=== PATIENT | female | born 1940 | race Hispanic/Latino ===

== ENCOUNTER 2019-04-11 14:48 | Emergency (ER) | payer OTHER ==
[2019-04-11] MEDS ORDERED: FOLIC ACID 5 MG/ML VIAL ONE (15:19)
[2019-04-11 15:38] LABS: Absolute Lymphocytes (CBC) 1.4 K/uL (0.7-4.9); Basophils % 1.1 % (0-1.3); Hematocrit 40.2 % (36.0-45.0); Lymphocytes % 18.9 % (15.3-44.8); RBC Red Blood Cell Count 4.42 M/uL (3.86-4.86)
[2019-04-11 15:41] LABS: Protime INR 1.01
--- NOTE | 2019-04-11 15:44 | RAD REPORT ---
EXAM DESCRIPTION: CT - Head Brain Wo Cont - 04/11/2019 3:37 pm CLINICAL HISTORY: DIZZINESS Headache, drowsiness, CVA symptomology COMPARISON: <Comparisons> TECHNIQUE: All CT scans are performed using dose optimization technique as appropriate and may inclu de automated exposure control or mA/KV adjustment according to patient size. FINDINGS: No intracranial hemorrhage, hydrocephalus or extra-axial fluid collection.No areas of brai n edema or evidence of midline shift. The paranasal sinuses and mastoids are clear. The calvarium is intact. IMPRESSION: No acute intracranial abnormality.
[2019-04-11 15:57] LABS: ALT/SGPT 22 U/L (12-78); AST/SGOT 17 U/L (15-37); Albumin 3.7 g/dL (3.4-5.0); Alkaline Phosphatase 67 U/L (45-117); BUN Blood Urea Nitrogen 10 mg/dL (7-18); Bicarbonate 29 mmol/L (21-32); Bilirubin Direct 0.1 mg/dL (0-0.2); Bilirubin Total 0.6 mg/dL (0.2-1.0); Glucose Level 124 mg/dL (74-106); Lipase 96 U/L (73-393); Magnesium 2.4 mg/dL (1.8-2.4); NT PRO-BNP 182 pg/mL (<450); Potassium 4.4 mmol/L (3.5-5.1); Protein, Total 7.4 g/dL (6.4-8.2); Sodium Level 140 mmol/L (136-145); Troponin (Emerg Dept Use Only) < 0.02 ng/mL (0.0-0.045)
--- NOTE | 2019-04-11 16:00 | RAD REPORT ---
EXAM DESCRIPTION: RAD - Chest Single View - 04/11/2019 3:47 pm CLINICAL HISTORY: COUGH Chest pain. COMPARISON: <Comparisons> FINDINGS: Portable technique limits examination quality. The lungs are grossly clear. The heart is normal in size. No displaced fractures. IMPRESSION: No acute intrathoracic process suspected.
--- NOTE | 2019-04-11 16:05 | RAD REPORT ---
EXAM DESCRIPTION: MRI - Brain Wo Cont - 04/11/2019 3:59 pm CLINICAL HISTORY: Dizziness;Declining state Headache, drowsiness, CVA symptomology COMPARISON: Head Brain Wo Cont dated 04/11/2019Head Brain Wo Cont dated 04/11/2019; Iac W/Wo Cont date d 11/26/2017 TECHNIQUE: Multi-sequence, multiplanar MR imaging of the brain was performed without contrast. FINDINGS: No intracranial hemorrhage, hydrocephalus or extra-axial fluid collections.Small amount of T2 and FLAIR hyperintensity in the periventricular region suggesting chronic microvascular ischemic changes. No edema or shift of midline structures. No findings to suspect brain mass. DWI is negative for acute CVA. Midline structures are normally formed. Mastoid air cells and paranasal sinuses are clear. IMPRESSION: Negative for acute CVA or other acute intracranial abnormalities.
[2019-04-11] MEDS ORDERED: ASPIRIN 81 MG CHEWABLE TABLET ONE (16:51)
[2019-04-11] MEDS ORDERED: CEFTRIAXONE/SWI 1gm 1 GM/10 ML SYR ONE (16:51)
[2019-04-11] MEDS ORDERED: ATORVASTATIN 10 MG TAB PO ONE ×2 (17:00→18:00)
[2019-04-11] MEDS ORDERED: CIPROFLOXACIN HCL 500 MG TAB ONE (17:04)
[2019-04-11 18:13] LABS: Urine Blood NEGATIVE (NEG); Urine Glucose NEGATIVE (NEG); Urine Protein NEGATIVE (NEG)
--- NOTE | 2019-04-11 18:28 | ER ---
Nurse's Notes [facility] Name: Diana Harrell Age: 79 yrs Sex: Female : 1940 Arrival Date: 04/11/2019 Time: 14:50 Bed 13 Private MD: Zachary Ramirez R Diagnosis: Headache;Weakness;Urinary tract infection, site not specified Presentation: 04/11 14:54 Presenting complaint: Patient states: "Yesterday I got dizzy and I can't talk too good aj1 and my leg is giving me problems, the back of my leg is hurting and I have a headache." States that she started having trouble talking yesterday but her leg has been hurting her for the past 2 weeks. States that this morning she couldn't talk, but she is unsure when that started or when that resolved. Transition of care: patient was not received from another setting of care. Onset of symptoms was April 10, 2019. Risk Assessment: Do you want to hurt yourself or someone else? Patient reports no desire to harm self or others. Initial Sepsis Screen: Does the patient meet any 2 criteria? No. Patient's initial sepsis screen is negative. Does the patient have a suspected source of infection? No. Patient's initial sepsis screen is negative. Care prior to arrival: None. 14:54 Method Of Arrival: Ambulatory aj1 14:54 Acuity: VAN 3 aj1 Triage Assessment: 14:59 Headache History: Denies prior headaches. General: Appears in no apparent distress. aj1 comfortable, Behavior is calm, cooperative, appropriate for age. Pain: Complains of pain in top of head, forehead, right mosque, left mosque, left frontal area, left side of the back of head, left side of forehead, left temporal area, left occipital area, right frontal area, right side of the back of head, right temporal area, right side of forehead and right occipital area Pain currently is 10 out of 10 on a pain scale. Pain began 1 day ago. Also complains of no other associated symptoms. Neuro: Level of Consciousness is awake, alert, obeys commands, Oriented to person, place, time, situation, Moves all extremities. Gait is steady, Speech is normal, Facial symmetry appears normal. Historical: - Allergies: 14:59 No Known Allergies; aj1 - Home Meds: 14:59 2 unknown blood pressure medications [Active]; aj1 - PMHx: 14:59 Hypertension; Arthritis; aj1 - Immunization history:: Flu vaccine is up to date. - Social history:: Smoking status: Patient/guardian denies using tobacco. - Ebola Screening: : Patient denies travel to an Ebola-affected area in the 21 days before illness onset. - Family history:: not pertinent. Screenin:03 Abuse screen: Denies threats or abuse. Nutritional screening: No deficits noted. tw2 Tuberculosis screening: No symptoms or risk factors identified. Fall Risk Secondary diagnosis (15 points) impaired mobility. Assessment: 15:02 General: Appears in no apparent distress. slender, Behavior is calm, cooperative, tw2 appropriate for age. Pain: Complains of pain in "headache". Neuro: Level of Consciousness is awake, alert, obeys commands, Oriented to person, place, time, situation. Cardiovascular: Heart tones S1 S2 Patient's skin is warm and dry. Respiratory: Airway is patent Respiratory effort is even, unlabored, Respiratory pattern is regular, symmetrical, Breath sounds are clear bilaterally. GI: No signs and/or symptoms were reported involving the gastrointestinal system. : No signs and/or symptoms were reported regarding the genitourinary system. EENT: No signs and/or symptoms were reported regarding the EENT system. Derm: No signs and/or symptoms reported regarding the dermatologic system. Musculoskeletal: Range of motion: intact in all extremities. 16:27 Reassessment: Patient appears in no apparent distress at this time. No changes from tw2 previously documented assessment. Patient and/or family updated on plan of care and expected duration. Pain level reassessed. Patient is alert, oriented x 3, equal unlabored respirations, skin warm/dry/pink. 16:39 Reassessment: provider at bedside at this time. tw2 17:58 Reassessment: Patient appears in no apparent distress at this time. No changes from tw2 previously documented assessment. Patient and/or family updated on plan of care and expected duration. Pain level reassessed. Patient is alert, oriented x 3, equal unlabored respirations, skin warm/dry/pink. 18:00 Reassessment: US at bedside at this time. tw2 18:40 Reassessment: Patient appears in no apparent distress at this time. No changes from tw2 previously documented assessment. Patient and/or family updated on plan of care and expected duration. Pain level reassessed. Patient is alert, oriented x 3, equal unlabored respirations, skin warm/dry/pink. Vital Signs: 14:59 BP 152 / 80; Pulse 60; Resp 16; Temp 97.2; Pulse Ox 97% on R/A; Weight 54.43 kg (R); aj1 Height 4 ft. 11 in. (149.86 cm) (R); Pain 10/10; 16:27 BP 143 / 54; Pulse 54; Resp 17; Pulse Ox 98% on R/A; tw2 17:58 BP 114 / 53; Pulse 57; Resp 17; Pulse Ox 98% on R/A; tw2 18:40 BP 138 / 53; Pulse 55; Resp 17; Pulse Ox 98% on R/A; tw2 14:59 Body Mass Index 24.24 (54.43 kg, 149.86 cm) aj1 NIH Stroke Scale Scores: 16:43 NIHSS Score: 0 speedy ED Course: 14:50 Patient arrived in ED. mr 14:51 Zachary Ramirez MD is Private Physician. mr 14:57 Triage completed. aj1 14:59 Arm band placed on Patient placed in an exam room. aj1 15:01 Virginie Fuentes, RN is Primary Nurse. tw2 15:03 Bed in low position. Call light in reach. monitor car operator on. Pulse ox on. NIBP on. tw2 Warm blanket given. 15:05 Eliazar Brody MD is Attending Physician. speedy 15:25 Inserted saline lock: 22 gauge in right hand, using aseptic technique. Blood collected. tw2 Missed attempt(s): 22 gauge in right antecubital area. Bleeding controlled, band aid applied, catheter tip intact. 15:38 CT Head Brain wo Cont In Process Unspecified. EDMS 15:45 Brain Wo Cont In Process Unspecified. EDMS 15:49 XRAY Chest (1 view) In Process Unspecified. EDMS 16:34 EKG done, by weed science research technician. reviewed by Eliazar Brody MD. sm3 18:27 Zachary Ramirez MD is Referral Physician. speedy 18:27 Oscar Armando MD is Referral Physician. speedy 18:48 No provider procedures requiring assistance completed. IV discontinued, intact, tw2 bleeding controlled, No redness/swelling at site. Pressure dressing applied. Administered Medications: 15:25 Drug: foLIC Acid 1 mg Route: IVPB; Site: right hand; tw2 16:22 Follow up: IV Status: Completed infusion tw2 16:55 Drug: Rocephin 1 grams Route: IV; Rate: per protocol; Site: right hand; tw2 17:00 Follow up: Response: No adverse reaction; IV Status: Completed infusion tw2 17:00 Follow up: Response: No adverse reaction; IV Status: Completed infusion tw2 17:00 Drug: Aspirin Chewable Tablet 324 mg Route: PO; tw2 17:05 Follow up: Response: No adverse reaction tw2 17:05 Drug: Cipro 500 mg Route: PO; tw2 17:35 Follow up: Response: No adverse reaction tw2 17:35 Not Given (not available from pharmacy): Zocor 20 mg PO once tw2 17:57 Drug: Atorvastatin 10 mg Route: PO; tw2 17:57 Follow up: Response: No adverse reaction tw2 Outcome: 18:28 Discharge ordered by . speedy 18:48 Discharged to home via wheelchair, with family. tw2 18:48 Condition: stable 18:48 Discharge instructions given to patient, family, Instructed on discharge instructions, follow up and referral plans. medication usage, Demonstrated understanding of instructions, follow-up care, medications, Prescriptions given X 4. 18:48 Patient left the ED. tw2 NIH Stroke Scale - NIH Stroke Score Date: 04/11/2019 Time: 16:43 Total Score = 0 1a. Level of Consciousness (LOC) - 0(Alert) 1b. Level of Consciousness (LOC) (Year \\T\\ Age) - 0(Both) 1c. LOC Commands (Open \\T\\ Closes Eyes/Crate Opener) - 0(Both) 2. Best Gaze (Lateral Gaze Paresis) - 0(Normal) 3. Visual Field Loss - 0(No visual loss) 4. Facial Palsy - 0(Normal) 5a. Left Arm: Motor (10-second hold) - 0(No drift) 5b. Right Arm: Motor (10-second hold) - 0(No drift) 6a. Left Leg: Motor (5-second hold - always test supine) - 0(No drift) 6b. Right Leg: Motor (5-second hold - always test supine) - 0(No drift) 7. Limb Ataxia (finger/nose \\T\\ heel/knowles - test with eyes open) - 0(Absent) 8. Sensory Loss (pinprick arms/legs/face) - 0(Normal) 9. Best Language: Aphasia (description/naming/reading) - 0(No aphasia) 10. Dysarthria (speech clarity - read or repeat words) - 0(Normal) 11. Extinction and Inattention (visual/tactile/auditory/spatial/personal) - 0(No abnormality) Initials: speedy Signatures: Dispatcher [employer] EDLyubov Alberto, RN RN aj1 Eliazar Brody MD MD cha Rivera, Evette mr Virginie Fuentes RN RN tw2 Nataly Buckley 3 Corrections: (The following items were deleted from the chart) 16:38 16:27 BP 143 / 143; Pulse 54bpm; Resp 17bpm; Pulse Ox 98% RA; tw2 tw2
--- NOTE | 2019-04-11 18:29 | EDPHYS ---
Physician Documentation [facility] Name: Diana Harrell Age: 79 yrs Sex: Female : 1940 Arrival Date: 04/11/2019 Time: 14:50 Bed 13 Private MD: Zachary Ramirez R ED Physician Eliazar Brody HPI: 04/11 16:43 This 79 yrs old Female presents to ER via Ambulatory with complaints of speedy Headache, Dizziness, Trouble Talking. 16:43 The patient complains of pain to the top of head, forehead, left frontal area and right speedy frontal area. The patient describes the headache as aching. Onset: The symptoms/episode began/occurred just prior to arrival. Associated signs and symptoms: The patient has no apparent associated signs or symptoms. Severity of symptoms: At its worst the pain was mild, moderate, in the emergency department the pain is unchanged. Headache History: The patient has had previous headaches and this one is similar to previous episodes. The symptoms are alleviated by nothing. the symptoms are aggravated by nothing. The patient has not experienced similar symptoms in the past. Historical: - Allergies: 14:59 No Known Allergies; aj1 - Home Meds: 14:59 2 unknown blood pressure medications [Active]; aj1 - PMHx: 14:59 Hypertension; Arthritis; aj1 - Immunization history:: Flu vaccine is up to date. - Social history:: Smoking status: Patient/guardian denies using tobacco. - Ebola Screening: : Patient denies travel to an Ebola-affected area in the 21 days before illness onset. - Family history:: not pertinent. ROS: 16:43 Constitutional: Negative for fever, chills, and weight loss, Eyes: Negative for injury, speedy pain, redness, and discharge, ENT: Negative for injury, pain, and discharge, Neck: Negative for injury, pain, and swelling, Cardiovascular: Negative for chest pain, palpitations, and edema, Respiratory: Negative for shortness of breath, cough, wheezing, and pleuritic chest pain, Abdomen/GI: Negative for abdominal pain, nausea, vomiting, diarrhea, and constipation, Back: Negative for injury and pain, : Negative for injury, bleeding, discharge, and swelling, MS/Extremity: Negative for injury and deformity, Skin: Negative for injury, rash, and discoloration, Psych: Negative for depression, anxiety, suicide ideation, homicidal ideation, and hallucinations, Allergy/Immunology: Negative for hives, rash, and allergies, Endocrine: Negative for neck swelling, polydipsia, polyuria, polyphagia, and marked weight changes, Hematologic/Lymphatic: Negative for swollen nodes, abnormal bleeding, and unusual bruising. 16:43 Neuro: Positive for headache, speech changes, weakness. Exam: 16:43 Constitutional: This is a well developed, well nourished patient who is awake, alert, speedy and in no acute distress. Head/Face: Normocephalic, atraumatic. Eyes: Pupils equal round and reactive to light, extra-ocular motions intact. Lids and lashes normal. Conjunctiva and sclera are non-icteric and not injected. Cornea within normal limits. Periorbital areas with no swelling, redness, or edema. ENT: Nares patent. No nasal discharge, no septal abnormalities noted. Tympanic membranes are normal and external auditory canals are clear. Oropharynx with no redness, swelling, or masses, exudates, or evidence of obstruction, uvula midline. Mucous membranes moist. Neck: Trachea midline, no thyromegaly or masses palpated, and no cervical lymphadenopathy. Supple, full range of motion without nuchal rigidity, or vertebral point tenderness. No Meningismus. Chest/axilla: Normal chest wall appearance and motion. Nontender with no deformity. No lesions are appreciated. Cardiovascular: Regular rate and rhythm with a normal S1 and S2. No gallops, murmurs, or rubs. Normal PMI, no JVD. No pulse deficits. Respiratory: Lungs have equal breath sounds bilaterally, clear to auscultation and percussion. No rales, rhonchi or wheezes noted. No increased work of breathing, no retractions or nasal flaring. Abdomen/GI: Soft, non-tender, with normal bowel sounds. No distension or tympany. No guarding or rebound. No evidence of tenderness throughout. Back: No spinal tenderness. No costovertebral tenderness. Full range of motion. Female : Normal external genitalia. Skin: Warm, dry with normal turgor. Normal color with no rashes, no lesions, and no evidence of cellulitis. MS/ Extremity: Pulses equal, no cyanosis. Neurovascular intact. Full, normal range of motion. Neuro: Awake and alert, GCS 15, oriented to person, place, time, and situation. Cranial nerves II-XII grossly intact. Motor strength 5/5 in all extremities. Sensory grossly intact. Cerebellar exam normal. Normal gait. Psych: Awake, alert, with orientation to person, place and time. Behavior, mood, and affect are within normal limits. Vital Signs: 14:59 BP 152 / 80; Pulse 60; Resp 16; Temp 97.2; Pulse Ox 97% on R/A; Weight 54.43 kg (R); aj1 Height 4 ft. 11 in. (149.86 cm) (R); Pain 10/10; 16:27 BP 143 / 54; Pulse 54; Resp 17; Pulse Ox 98% on R/A; tw2 17:58 BP 114 / 53; Pulse 57; Resp 17; Pulse Ox 98% on R/A; tw2 18:40 BP 138 / 53; Pulse 55; Resp 17; Pulse Ox 98% on R/A; tw2 14:59 Body Mass Index 24.24 (54.43 kg, 149.86 cm) aj1 NIH Stroke Scale Scores: 16:43 NIHSS Score: 0 speedy MDM: 15:13 Patient medically screened. speedy 16:47 Data reviewed: vital signs, nurses notes, lab test result(s), EKG, radiologic studies, [place] CT scan, doppler, MRI. 04/11 15:12 Order name: Basic Metabolic Panel; Complete Time: 16:36 [place] 04/11 15:12 Order name: CBC with Diff; Complete Time: 16:36 [place] 04/11 15:12 Order name: LFT's; Complete Time: 16:36 [place] 04/11 15:12 Order name: Magnesium; Complete Time: 16:36 [place] 04/11 15:12 Order name: NT PRO-BNP; Complete Time: 16:36 [place] 04/11 15:12 Order name: PT-INR; Complete Time: 16:36 [place] 04/11 15:12 Order name: Troponin (emerg Dept Use Only); Complete Time: 16:36 [place] 04/11 15:12 Order name: XRAY Chest (1 view); Complete Time: 16:36 [place] 04/11 15:12 Order name: Lipase; Complete Time: 16:36 [place] 04/11 15:12 Order name: CT Head Brain wo Cont; Complete Time: 16:36 [place] 04/11 15:12 Order name: Urine Culture [place] 04/11 16:42 Order name: Urine Dipstick--Ancillary (enter results); Complete Time: 18:27 04/11 15:12 Order name: EKG; Complete Time: 15:16 [place] 04/11 15:12 Order name: Cardiac monitoring; Complete Time: 15:14 [place] 04/11 15:12 Order name: EKG - Nurse/Tech; Complete Time: 16:27 [place] 04/11 15:12 Order name: IV Saline Lock; Complete Time: 15:31 [place] 04/11 15:12 Order name: Labs collected and sent; Complete Time: 15:31 [place] 04/11 15:12 Order name: O2 Per Protocol; Complete Time: 15:14 [place] 04/11 15:12 Order name: O2 Sat Monitoring; Complete Time: 15:13 [place] 04/11 15:12 Order name: Urine Dipstick-Ancillary (obtain specimen); Complete Time: 16:22 [place] 04/11 15:44 Order name: Brain Wo Cont; Complete Time: 16:36 EDMS Administered Medications: 15:25 Drug: foLIC Acid 1 mg Route: IVPB; Site: right hand; tw2 16:22 Follow up: IV Status: Completed infusion tw2 16:55 Drug: Rocephin 1 grams Route: IV; Rate: per protocol; Site: right hand; tw2 17:00 Follow up: Response: No adverse reaction; IV Status: Completed infusion tw2 17:00 Follow up: Response: No adverse reaction; IV Status: Completed infusion tw2 17:00 Drug: Aspirin Chewable Tablet 324 mg Route: PO; tw2 17:05 Follow up: Response: No adverse reaction tw2 17:05 Drug: Cipro 500 mg Route: PO; tw2 17:35 Follow up: Response: No adverse reaction tw2 17:35 Not Given (not available from pharmacy): Zocor 20 mg PO once tw2 17:57 Drug: Atorvastatin 10 mg Route: PO; tw2 17:57 Follow up: Response: No adverse reaction tw2 Disposition: 04/11/19 18:28 Discharged to Home. Impression: Headache, Weakness, Urinary tract infection, site not specified. - Condition is Fair. - Discharge Instructions: General Headache Without Cause, Urinary Tract Infection, Adult, Weakness, Fatigue, Urinary Tract Infection, Adult, [id number], Weakness, [id number], Aspirin and Your Heart, General Headache Without Cause, [id number]. - Prescriptions for Cipro 250 mg Oral Tablet - take 1 tablet by ORAL route every 12 hours; 14 tablet. Folic Acid 1 mg Oral Tablet - take 1 tablet by ORAL route once daily; 30 tablet. Lipitor 10 mg Oral Tablet - take 1 tablet by ORAL route once daily; 30 tablet. Bactrim DS 800- 160 mg Oral Tablet - take 1 tablet by ORAL route every 12 hours for 5 days; 10 tablet. - Medication Reconciliation Form, Thank You Letter, Antibiotic Education, Prescription Opioid Use form. - Follow up: Zachary Ramirez; When: 2 - 3 days; Reason: Recheck today's complaints, Continuance of care, Re-evaluation by your physician. Follow up: Oscar Armando; When: 2 - 3 days; Reason: Recheck today's complaints, Re-evaluation by your physician. - Problem is new. - Symptoms have improved. NIH Stroke Scale - NIH Stroke Score Date: 04/11/2019 Time: 16:43 Total Score = 0 1a. Level of Consciousness (LOC) - 0(Alert) 1b. Level of Consciousness (LOC) (Year \T\ Age) - 0(Both) 1c. LOC Commands (Open \T\ Closes Eyes/Asian Studies Professor) - 0(Both) 2. Best Gaze (Lateral Gaze Paresis) - 0(Normal) 3. Visual Field Loss - 0(No visual loss) 4. Facial Palsy - 0(Normal) 5a. Left Arm: Motor (10-second hold) - 0(No drift) 5b. Right Arm: Motor (10-second hold) - 0(No drift) 6a. Left Leg: Motor (5-second hold - always test supine) - 0(No drift) 6b. Right Leg: Motor (5-second hold - always test supine) - 0(No drift) 7. Limb Ataxia (finger/nose \T\ heel/knowles - test with eyes open) - 0(Absent) 8. Sensory Loss (pinprick arms/legs/face) - 0(Normal) 9. Best Language: Aphasia (description/naming/reading) - 0(No aphasia) 10. Dysarthria (speech clarity - read or repeat words) - 0(Normal) 11. Extinction and Inattention (visual/tactile/auditory/spatial/personal) - 0(No abnormality) Initials: speedy Signatures: Dispatcher [employer] [facility] Lyubov Miller, RN RN aj1 Eliazar Brody MD MD cha Wise, Tara RN RN tw2 Corrections: (The following items were deleted from the chart) 15:44 15:15 MR STROKE PROTOCOL+MRI.RAD.BRZ ordered. [facility] 18:09 17:15 Urine Dipstick-Ancillary ordered. [facility] 18:47 16:44 Carotid Artery Bilateral+US.RAD.BRZ ordered. [facility] 18:48 18:28 04/11/2019 18:28 Discharged to Home. Impression: Headache; Weakness; tw2 Urinary tract infection, site not specified. Condition is Fair. Discharge Instructions: General Headache Without Cause, Urinary Tract Infection, Adult, Weakness, Fatigue, Urinary Tract Infection, Adult, Hqxk-[id number], Weakness, Jmvo-[id number], Aspirin and Your Heart, General Headache Without Cause, [id number]-[id number]. Prescriptions for Cipro 250 mg Oral Tablet - take 1 tablet by ORAL route every 12 hours; 14 tablet, Folic Acid 1 mg Oral Tablet - take 1 tablet by ORAL route once daily; 30 tablet, Lipitor 10 mg Oral Tablet - take 1 tablet by ORAL route once daily; 30 tablet. and Forms are Medication Reconciliation Form, Thank You Letter, Antibiotic Education, Prescription Opioid Use. Follow up: Zachary Ramirez; When: 2 - 3 days; Reason: Recheck today's complaints, Continuance of care, Re-evaluation by your physician. Follow up: Oscar Armando; When: 2 - 3 days; Reason: Recheck today's complaints, Re-evaluation by your physician. Problem is new. Symptoms have improved. speedy
--- NOTE | 2019-04-11 18:54 | RAD REPORT ---
EXAM DESCRIPTION: US - CP - 04/11/2019 6:47 pm CLINICAL HISTORY: DIZZY Headache, drowsiness, dizziness COMPARISON: No comparisonsChest Pa And Lat (2 Views) dated 11/08/2016Head Brain Wo Cont dated 9; Ct Stroke Brain Wo Cont dated 09/11/2018CAROTID ARTERY BILATERAL dated 01/19/2011 TECHNIQUE: Real-time sonographic evaluation of both carotid systems was performed. Doppler interroga tion was performed with waveform tracing bilaterally. FINDINGS: Normal high resistance waveforms are noted in both external carotid arteries. The common c arotid arteries and internal carotid arteries show normal low resistance waveforms. Small amount of plaquing is present in the left carotid bulb. Peak systolic and end diastolic velocit y values and the ICA/CCA ratios are in the non-hemodynamically significant range. Antegrade flow seen in both vertebral arteries. IMPRESSION: Mild left carotid bulb mixed plaque. No evidence of a hemodynamically significant stenosis.
[2019-04-11 21:32] VITALS: O2SAT 98
[2019-04-11 21:34] VITALS: TEMP 97.2
[2019-04-11 21:37] VITALS: BP 138/53
--- NOTE | 2019-04-13 12:49 | EKG ---
Test Date: 2019-04-11 Test Time: 16:27:20 Child Day Care Provider: KEVIN MEASUREMENT RESULTS: Intervals: Rate: 54 MI: 124 QRSD: 94 QT: 458 QTc: 434 [place]: P: 9 MI: 124 QRS: -25 T: 34 INTERPRETIVE STATEMENTS: Sinus bradycardia Otherwise normal ECG Compared to ECG 08/19/1996 16:12:00 Sinus rhythm no longer present Electronically Signed On 04-13-19 12:45:34 CARPET RENOVATOR by Tod Fox
--- OUTSIDE RECORDS SUMMARY | 2019-04-14 05:32 | XMS REPORT ---
:1940 [facility] Address [address] [place] [address] Dr. Garcia [address] [place] [id number] Care Team Providers Name Role Phone Unavailable Unavailable Unavailable Problems This patient has no known problems. Allergies, Adverse Reactions, Alerts This patient has no known allergies or adverse reactions. Medications This patient has no known medications.
--- OUTSIDE RECORDS SUMMARY | 2019-04-14 05:32 | XMS REPORT | Summary of Care ---
:1940 Author Organization [facility] Address [address] [place] [address] Care Team Providers Name Role Phone Zachary Jung MD Primary Care Provider Reason for Visit Reason Comments Leg Pain Auth/Cert Status Reason Specialty Diagnoses / Referred By Referred To Procedures Contact Contact Emergency [facility] [address] [place] [address] [place] [address] Encounter Details Date Type Department Care Team Description 01/29/2019 Hospital Encounter [facility] Alphonso Herbert MD [address] BAJWA [address] [place] [phone] Heart Center [facility], [facility] Cardio Vascular [address] [place] [address] [place] [phone] Allergies No Known Allergiesdocumented as of this encounter (statuses as of 01/30/2019) Medications Medication Sig Dispensed Refills Start Date End Date Status traMADol 50 mg Take 1 tablet by 20 tablet 0 01/29/2019 Active tabletIndications: mouth every 6 Avendaño's cyst of knee, (six) hours as left needed for Pain (scale 4-6). naproxen (NAPROSYN) Take 1 tablet by 20 tablet 0 01/29/2019 Active 500 mg mouth 2 (two) tabletIndications: times daily with Avendaño's cyst of knee, meals. left documented as of this encounter (statuses as of 01/30/2019) Active Problems Not on filedocumented as of this encounter (statuses as of 01/30/2019) Social History Tobacco Use Types Packs/Day Years Used Date Never Assessed Sex Assigned at Date Recorded Not on file Job Start Date Occupation Industry Not on file Not on file Not on file Travel History Travel Start Travel End No recent travel history available. documented as of this encounter Last Filed Vital Signs Not on filedocumented in this encounter Plan of Treatment Health Maintenance Due Date Last Done Comments DTaP,Tdap,and Td Vaccines (1 - Tdap) 1961 Zoster Recombinant Vaccine (SHINGRIX) (1 of 2) 1992 Medicare Wellness Visit 2007 Osteoporosis Screening 2007 PNEUMOCOCCAL VACCINES 65+ (1 of 2 - PCV13) 2007 INFLUENZA VACCINE (#1) 2019 documented as of this encounter Results Not on filedocumented in this encounter Visit Diagnoses Diagnosis Left leg pain Pain in limb documented in this encounter Insurance Payer Benefit Plan / Subscriber ID Effective Dates Phone Address Type Group [facility] [id number] 2018-Presen Medicare Adv PLUS PLUS CHOICE t HMO/POS [phone] [id number] (Work) documented as of this encounter
--- OUTSIDE RECORDS SUMMARY | 2019-04-14 05:32 | XMS REPORT | Summary of Care ---
:1940 [address] [facility] Address [address] [place] [address] Care Team Providers Name Role Phone Zachary Jung MD Primary Care Provider Reason for Referral Radiology Services (STAT) Status Reason Specialty Diagnoses / Referred By Referred To Procedures Contact Contact New Request Diagnostic Diagnoses Acute pain of left knee Yasmani Dee, Radiology Procedures XR KNEE <3 VW LEFT [address] [address] Radiology Services (STAT) Status Reason Specialty Diagnoses / Referred By Referred To Procedures Contact Contact New Request Diagnostic Diagnoses Acute pain of left knee Yasmani Dee, Radiology Procedures XR KNEE <3 VW LEFT [address] [address] (Routine) Status Reason Specialty Diagnoses / Referred By Referred To Procedures Contact Contact New Request Procedures Ros Puckett, UNILATERAL VENOUS PAC DUPLEX LOWER [address] [facility] [place] [address] VASCULAR LAB (Routine) Status Reason Specialty Diagnoses / Referred By Referred To Procedures Contact Contact New Request Procedures Ros Puckett, UNILATERAL VENOUS PAC DUPLEX LOWER [address] [facility] [place] [address] VASCULAR LAB Reason for Visit Reason Comments Knee Pain Auth/Cert Status Reason Specialty Diagnoses / Referred By Referred To Procedures Contact Contact Emergency [facility] [address] [place] [address] [place] [address] Encounter Details Date Type Department Care Team Description 01/29/2019 - Emergency [facility] PuckettRos S, Avendaño's cyst of knee, left (Primary Dx); 01/30/2019 Department PAC Acute pain of left knee [address] [place] [address] [place] [address] [facility] [place] [address] [phone] Allergies No Known Allergiesdocumented as of this [...] of this encounter Last Filed Vital Signs Vital Sign Reading Time Taken Comments Blood Pressure 122/54 01/29/2019 11:00 PM CDT Pulse 75 01/29/2019 11:00 PM CDT Temperature 37 C (98.6 F) 01/29/2019 9:25 PM CDT Respiratory Rate - - Oxygen Saturation 94% 01/29/2019 11:00 PM CDT Inhaled Oxygen Concentration - - Weight 55.3 kg (122 lb) 01/29/2019 9:15 PM CDT Height 149.9 cm (4' 11") 01/29/2019 9:15 PM CDT Body Mass Index 24.64 01/29/2019 9:15 PM CDT documented in this encounter Discharge Instructions Ros Stratton, LUDA - 01/29/2019Take medications as prescribed and try to avoid standing or walking for long periods of time. Followup with an orthopedist in the next 1-2 days if the pain continues to be bad for further evaluation and treatment. AttachmentsThe following attachments cannot be sent through Care Everywhere.Avendaño's Cyst (Popliteal Cyst), Understanding ([place]serr[place]ian)Avendaño's Cyst ( Popliteal Cyst), Treatment for ([place]serratian)documented in this encounter Plan of Treatment Name Type Priority Associated Diagnoses Date/Time XR KNEE <3 VW LEFT IMAGING STAT Acute pain of left knee 01/29/2019 11:40 PM CDT Health Maintenance Due Date Last Done Comments DTaP,Tdap,and Td Vaccines (1 - Tdap) 1961 Zoster Recombinant Vaccine (SHINGRIX) (1 of 2) 1992 Medicare Wellness Visit 2007 Osteoporosis Screening 2007 PNEUMOCOCCAL VACCINES 65+ (1 of 2 - PCV13) 2007 INFLUENZA VACCINE (#1) 2019 documented as of this encounter Procedures Procedure Name Priority Date/Time Associated Diagnosis Comments XR KNEE <3 VW LEFT STAT 01/29/2019 11:40 PM CDT Acute pain of left knee Procedure Note - [facility], Radiant Results Inft User - 01/29/2019 11:45 PM CDT EXAM: XR KNEE <3 VW LEFT HISTORY: knee pain COMPARISON: None FINDINGS: Radiographs of the left knee demonstrate no acute fracture or dislocation. The joint spaces are maintained. No soft tissue abnormality is seen. IMPRESSION No acute fracture or dislocation. documented in this encounter Results Not on filedocumented in this encounter Visit Diagnoses Diagnosis Avendaño's cyst of knee, left - Primary Acute pain of left knee documented in this encounter Administered Medications Medication Order MAR Action Action Date Dose Rate Site HYDROcodone-acetaminophen Given 01/29/2019 11:45 PM CDT 1 tablet (NORCO 5) 5-325 mg tablet 1 tablet 1 tablet, Oral, ONCE, 1 dose, Lynda 01/30/19 at 0045, RUTH ANN documented in this encounter Insurance Payer Benefit Plan / Subscriber ID Effective Dates Phone Address Type Group [employer] MORROW [id number] 2018-Presen Medicare Adv PLUS PLUS CHOICE t HMO/POS [phone] [id number] (Work) documented as of this encounter
--- OUTSIDE RECORDS SUMMARY | 2019-04-14 05:32 | XMS REPORT | Summary of Care ---
:1940 Author Organization [facility] Address [address] [place] [address] Care Team Providers Name Role Phone Zachary Jung MD Primary Care Provider Reason for Visit Reason Comments Follow-up Knee Pain cyst on left knee Encounter Details Date Type Department Care Team Description 01/30/2019 Office Visit [facility] Orthopaedic Andres Avendaño S, Internal derangement Surgery- [place] PAC of left knee (Primary [address] [place] [address] [place], [place] [phone] Allergies No Known Allergiesdocumented as of this encounter (statuses as of 01/31/2019) Medications Medication Sig Dispensed Refills Start Date [...] as of this encounter (statuses as of 01/31/2019) Active Problems Not on filedocumented as of this encounter (statuses as of 01/31/2019) Social History Tobacco Use Types Packs/Day Years Used Date Never Assessed Sex Assigned at Date Recorded Not on file Job Start Date Occupation Industry Not on file Not on file Not on file Travel History Travel Start Travel End No recent travel history available. documented as of this encounter Last Filed Vital Signs Vital Sign Reading Time Taken Comments Blood Pressure 151/74 01/30/2019 9:31 AM CDT Pulse 65 01/30/2019 9:28 AM CDT Temperature - - Respiratory Rate - - Oxygen Saturation - - Inhaled Oxygen Concentration - - Weight 55.3 kg (122 lb) 01/30/2019 9:28 AM CDT Height 149.9 cm (4' 11") 01/30/2019 9:28 AM CDT Body Mass Index 24.64 01/30/2019 9:28 AM CDT documented in this encounter Progress Notes Andres Avendaño, PAC - 01/30/2019 9:45 AM CDT Cc: Chief Complaint Patient presents with Follow-up Knee Pain cyst on left knee Diana Harrell is a 78 year old female. Therefore left knee pain, onset 01/22/2019, difficulty walking, she went to the emergency department at [facility], Allergies Diana has No Known Allergies. Medications Outpatient Medications Prior to Visit Medication Sig Dispense Refill naproxen (NAPROSYN) 500 mg tablet Take 1 tablet by mouth 2 (two) times daily with meals. 20 tablet 0 traMADol 50 mg tablet Take 1 tablet by mouth every 6 (six) hours as needed for Pain (scale 4-6).20 tablet 0 No facility-administered medications prior to visit. Histories Past Medical History: Diagnosis Date Hypertension No past surgical history on file. Social History Socioeconomic History Marital status: Spouse name: Not on file Number of children: Not on file Years of education: Not on file Highest education level: Not on file Occupational History Not on file Social Needs Financial resource strain: Not on file Food insecurity: Worry: Not on file Inability: Not on file Transportation needs: Medical: Not on file Non-medical: Not on file Tobacco Use Smoking status: Not on file Substance and Sexual Activity Alcohol use: Not on file Drug use: Not on file Sexual activity: Not on file Lifestyle Physical activity: Days per week: Not on file Minutes per session: Not on file Stress: Not on file Relationships Social connections: Talks on phone: Not on file Gets together: Not on file Attends sikhism service: Not on file Active member of club or organization: Not on file Attends meetings of clubs or organizations: Not on file Relationship status: Not on file Intimate partner violence: Fear of current or ex partner: Not on file Emotionally abused: Not on file Physically abused: Not on file Forced sexual activity: Not on file Other Topics Concern Not on file Social History Narrative Not on file No family history on file. Review of Systems Constitutional: Positive for activity change. HENT: Negative. Eyes: Negative. Respiratory: Negative. Breasts: Negative. Cardiovascular: Negative. Gastrointestinal: Negative. Genitourinary: Negative. Musculoskeletal: Negative. Skin: Negative. Neurological: Negative. Psychiatric/Behavioral: Negative. Endocrine: Endocrine negative Vital Signs Ht 59" (149.9 cm) | Wt 55.3 kg (122 lb) | BMI 24.64 kg/m Physical Exam Musculoskeletal: Physical Exam Constitutional: oriented to person, place, and time. appears well-developed and well-nourished. HENT: Head: Normocephalic and atraumatic. Right Ear: External ear normal. Left Ear: External ear normal. Eyes: Conjunctivae are normal. Neck: Normal range of motion. No strabismus Neck supple. Cardiovascular: Normal rate and regular rhythm. Pulmonary/Chest: Normal respiratory rate equal chest rise and fall in no apparent distress Abdominal: Abdomen nondistended nontender Neurological: alert and oriented to person, place, and time. No asymmetry Skin: Skin is warm and dry. Psychiatric: normal mood and affect. behavior is normal. Judgment and thought content normal. Nursing note and vitals reviewed. Left knee stable ligamentous exam she does have a ache or cyst on the posterior aspect of the medialknee. Physical Exam Constitutional: oriented to person, place, and time. appears well-developed and well-nourished. HENT: Head: Normocephalic and atraumatic. Right Ear: External ear normal. Left Ear: External ear normal. Eyes: Conjunctivae are normal. Neck: Normal range of motion. No strabismus Neck supple. Cardiovascular: Normal rate and regular rhythm. Pulmonary/Chest: Normal respiratory rate equal chest rise and fall in no apparent distress Abdominal: Abdomen nondistended nontender Neurological: alert and oriented to person, place, and time. No asymmetry Skin: Skin is warm and dry. Psychiatric: normal mood and affect. behavior is normal. Judgment and thought content normal. Nursing note and vitals reviewed. EXAM: XR KNEE <3 VW LEFT HISTORY: knee pain COMPARISON: None FINDINGS: Radiographs of the left knee demonstrate no acute fracture or dislocation. The joint spaces are maintained. No soft tissue abnormality is seen. IMPRESSION No acute fracture or dislocation. I, Les Lucas MD., have reviewed this study and agree with the above report. X-rays reviewed the joint space well-maintained but she was nonweightbearing Assessment/Plan Diagnosis 1. Internal derangement of left knee She has some naproxen sodium that was prescribed in the emergency room as well as tramadol don't recommend that she take tramadol for this but the naproxen sodium will be fine we will give her a cortisone injection in her left knee today and follow-up as needed if the pain recurs. Patient received an ultrasound guided injection of 1cc kenalog and 4cc lidocaine to the left knee. The knee was examined and the knee was marked with the needle In the middle of the lateral joint line just lateral to the patellar tendon the knee was then prepped 3 times with Betadine in a Bullseye fashion and then once with alcohol allowing it to soak at least 20 seconds. Ultrasound guidance was usedto direct the needle posterior to the fat pad and an injection was administered of 1 cc Kenalog with4 cc 1% lidocaine without epinephrine without resistance. The skin was cleansed with alcohol and then dried with a sterile 4 x 4 and a sterile Band-Aid was applied patient tolerated procedure without difficulty. documented in this encounter Plan of Treatment Health Maintenance Due Date Last Done Comments DTaP,Tdap,and Td Vaccines (1 - Tdap) 1961 Zoster Recombinant Vaccine (SHINGRIX) (1 of 2) 1992 Medicare Wellness Visit 2007 Osteoporosis Screening 2007 PNEUMOCOCCAL VACCINES 65+ (1 of 2 - PCV13) 2007 INFLUENZA VACCINE (#1) 2019 documented as of this encounter Results Not on filedocumented in this encounter Visit Diagnoses Diagnosis Internal derangement of left knee - Primary Unspecified internal derangement of knee documented in this encounter Insurance Payer Benefit Plan / Subscriber ID Effective Dates Phone Address Type Group JADIEL MORROW [id number] 2018-Presen Medicare Adv PLUS PLUS CHOICE t HMO/POS [phone] (Work) documented as of this encounter
--- OUTSIDE RECORDS SUMMARY | 2019-04-14 05:32 | XMS REPORT | Summary of Care ---
:1940 Author Organization [facility] Address [address] [place] [address] Care Team Providers Name Role Phone Zachary Jung MD Primary Care Provider Reason for Visit Reason Comments Follow-up Knee Pain cyst on left knee Encounter Details Date Type Department Care Team Description 01/30/2019 Office Visit [facility] Orthopaedic Andres Avendaño S, Internal derangement Surgery- [place] PAC of left knee (Primary [address] [place] [address] [place] [address] [place], [place] [phone] Allergies No Known Allergiesdocumented as of this [...] she went to the emergency department at [facility], Allergies Diana has No Known Allergies. Medications [...] file Gets together: Not on file Attends presybeterian service: Not on file Active member of [...] Dates Phone Address Type Group JADIEL MORROW [id number] 2018-Presen Medicare Adv PLUS PLUS CHOICE t HMO/POS [phone] (Work) documented as of this encounter
== END 2019-04-11 18:48 | disposition home or self-care (01) ==
LOC: ER 14:48
DX: N39.0 Urinary tract infection, site not specified (principal); R53.1 Weakness; I10 Essential (primary) hypertension
CPT/HCPCS: 36415; 70450; 70551; 71045; 80048; 80076; 81003; 83690; 83735; 83880; 84484; 85025; 85610; 87086; 87088; 93005; 93880; 96365; 96375; 99285; J0696

== ENCOUNTER 2023-01-02 21:42 | Observation (INO) | payer OTHER ==
--- OUTSIDE RECORDS SUMMARY | 2023-01-02 21:48 | XMS REPORT | Continuity of Care Document ---
:1940 Author Organization [facility] t Address [address] [place] [address] [place] [id number] Care Team Providers Name Role Phone PCP, PATIENT DOES NOT HAVE A Primary Care Physician UnavailELISHA Will Attending Clinician Unavailable RAMIRO CADET Attending Clinician Unavailable Doctor Unassigned, [place] Attending Clinician Unavailable Elda Norman RN Attending Clinician Unavailable Virgie Hammer Attending Clinician Kendall Schultz MD Attending Clinician [phone] Meg Murrieta MD Attending Clinician TAMMI MAGANA Attending Clinician Unavailable JUAN LUIS PAGE Attending Clinician Unavailable Ricardo Kenyon MD Attending Clinician Juan Luis Page MD Attending Clinician Nurse, [facility] General Surgery Attending Clinician Unavailable Soham Schultz MD Attending Clinician SOHAM SCHULTZ Attending Clinician Unavailable Andres Morrison S Attending Clinician Ros Ferreira S Attending Clinician Keon KAY, Alphonso Garvin.HCorinne Attending Clinician Tech, [facility] Cardio Vascular Attending Clinician Unavailable Meg Murrieta MD Admitting Clinician MASEL, JUAN LUIS S Admitting Clinician Unavailable Juan Luis Page MD S Admitting Clinician Payers Payer Name Policy Type Policy Number Effective Date Expiration Date [employer] PLS [id number] 2019 HMO 00:00:00 MEDICARE PART A [id number] 2007 \\T\\ B 00:00:00 Problems Condition Condition Condition Status Onset Resolution Last Treating Co mments Source Name Details Category Date Date Treatment Clinician Date Headache Headache Disease Active Unive rs 4-07 ity of 00:00: [address] Depression Depression Disease Active 2019-06 U nivers 2-04 ity of 00:00: [address] Diarrhea Diarrhea Disease Active 2019-06 Unive rs 2-04 ity of 00:00: [address] Slurred Slurred Disease Active 2019-06 Univers speech speech 2-03 ity of 00:00: [address] Allergies, Adverse Reactions, Alerts Allergy Allergy Status Severity Reaction(s) Onset Inactive Treating Comm ents Source Name Type Date Date Clinician NO KNOWN Drug Active Univers ALLERGIE Class ity of S [facility] Social History Social Habit Start Date Stop Date Quantity Comments Source Gender identity [facility] Sexual orientation [facility] Exposure to Not sure [facility] SARS-CoV-2 (event) [facility] Tobacco use and 2020-09-08 2020-09-08 Smokeless Universit y of exposure 00:00:00 00:00:00 tobacco non-user [facility] History of Social 2020-01-07 2020-01-07 Univers ity of function 00:00:00 00:00:00 [facility] Sex Assigned At [birth year] Universit y of 00:00:00 00:00:00 [facility] Smoking Status Start Date Stop Date Source Never smoked tobacco [facility] Unknown if ever smoked [facility] Medications Ordered Filled Start Stop Current Ordering Indication Dosage Frequency Signature Comments Components Source Medication Medication Date Date Medication? Clinician (SIG) Name Name ketorolac 15mg 15 mg, Unive rs (TORADOL) 09-08 Slow IV ity of injection 15:00: 14:31 Push, [place] 15 mg 00 :00 ONCE, 1 Medical dose, [facility] 09/08/20 at 1000, Routine
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 Restricted medication : MEG MURRIETA pantoprazol Yes 40mg 40 mg, Univ ers e 09-08 Oral, ity of (PROTONIX) 14:00: DAILY, [place] EC tablet 00 First dose Medi mone 40 mg on Sun Branch 09/08/20 at 0900, Until Discontinu ed, Routine aspirin Yes 81mg 81 mg, Univers chewable 09-08 Oral, ity of tablet 81 14:00: DAILY, [place] mg 00 First dose Medical on [place] 09/08/20 at 0900, Until Discontinu ed, Routine magnesium 2020- No 2g 2 g, IV Univ ers sulfate in 09-08 Piggyback, it y of water 2 14:00: 13:16 ONCE, 1 [place] gram/50 mL 00 :00 dose, Sun Medi mone (4 %) 09/08/20 at Branch infusion 2 0900, g Routine clopidogreL 2020- No 300mg 300 mg, U nivers (PLAVIX) 09-08 Oral, ity of tablet 300 14:00: 08:47 DAILY, [place] mg 00 :34 First dose Medical on [place] 09/08/20 at 0900, Until Discontinu ed, Routine heparin Yes 5000U 5,000 Univers (porcine) 09-08 Units, ity of injection 13:00: [place]cut[place]o [place] 5,000 Units 00 us, Q12H, Med ical First dose Branch on Sun09/08/20 at 0800, Until Discontinu ed, Routine NaCl 0.9% Yes 1000mL at 75 Unive rs (NS) IV 4-07 mL/hr, IV ity of infusion 08:45: Infusion, [place] 1,000 mL 00 CONTINUOUS Medic al , Starting Branch Sun09/08/20 at 0345, Until Discontinu ed, Routine acetaminoph Yes 650mg 650 mg, Un silvia en 09-08 Oral, ity of (TYLENOL) 08:33: Q6HPRN, [place] tablet 650 52 Starting Medic al mg Sun09/08/20 Branch at 0333, Until Discontinu ed, Routine, Pain (scale 4-6) docusate Yes 100mg 100 mg, Unive rs (COLACE) 4-07 Oral, ity of capsule 100 08:33: QDAILYPRN, [place] mg 52 Starting Medical 09/08/20 Branch at 0333, Until Discontinu ed, Routine, Constipati on iohexol 2020- No [id number] 100mL 100 mL, Univers (OMNIPAQUE 09-08 04-07 Intravenou it y of 350 03:30: 03:30 s, ONCE, 1 [place] BULK-100 00 :00 dose, Tue Medica l mL) 09/07/20 at [place] injection 2230, 100 mL Routine magnesium Yes [id number] 400mg Take 1 Univers oxide 400 4-07 tablet by ity o f mg (241.3 00:00: mouth [place] mg 00 daily. Medical magnesium) [place] tablet topiramate Yes [id number] 25mg Take 1 Univers 25 mg 4-07 tablet by ity of tablet 00:00: mouth [place] 00 daily. [facility] magnesium Yes [id number] 400mg Take 1 Univers oxide 400 4-07 tablet by ity o f mg (241.3 00:00: mouth [place] mg 00 daily. Medical magnesium) [place] tablet topiramate Yes [id number] 25mg Take 1 Univers 25 mg 4-07 tablet by ity of tablet 00:00: mouth [place] 00 daily. [facility] magnesium Yes [id number] 400mg Take 1 Univers oxide 400 4-07 tablet by ity o f mg (241.3 00:00: mouth [place] mg 00 daily. Medical magnesium) [place] tablet topiramate Yes [id number] 25mg Take 1 Univers 25 mg 4-07 tablet by ity of tablet 00:00: mouth [place] 00 daily. [facility] aspirin 81 2019-06- No [id number] 81mg Take 1 Univers mg chewable 2-06 12-06 tablet by it y of tablet 00:00: 05:59 mouth [place] 00 :00 daily for Medical 364 days. [place] aspirin 81 2019-06- No [id number] 81mg Take 1 Univers mg chewable 2-06 12-06 tablet by it y of tablet 00:00: 05:59 mouth [place] 00 :00 daily for Medical 364 days. [place] aspirin 81 2019-06- No [id number] 81mg Take 1 Univers mg chewable 07-10 tablet by it y of tablet 00:00: 05:59 mouth [place] 00 :00 daily for Medical 364 days. Branch aspirin 81 2019-06- No [id number] 81mg Take 1 Univers mg chewable 07-10 tablet by it y of tablet 00:00: 05:59 mouth [place] 00 :00 daily for Medical 364 days. Branch gadobenate 2019-06- No .2mL/kg 12.06 mL Univers dimeglumine 07-09 (0.2 mL/kg i ty of (MULTIHANCE 01:45: 01:45 ?60.3 kg), [place] -15 mL) 00 :00 Intravenou Medica l injection s, ONCE, 1 Bran ch 12.06 mL dose, Sun05/07/20 at 1945, Routine atorvastati 2019-06 No [id number] 40mg Take 1 Univers n 40 mg 07-09- tablet by ity of tablet 00:00: 05:59 mouth at [place] 00 :00 bedtime Medical for 90 Branch days. atorvastati 2019-06 No [id number] 40mg Take 1 Univers n 40 mg 07-09-06 tablet by ity of tablet 00:00: 05:59 mouth at [place] 00 :00 bedtime Medical for 90 Branch days. LORazepam 2019-06- No 1mg 1 mg, Univer s (ATIVAN) 07-08 Oral, ity of tablet 1 mg 16:30: 00:16 ONCE, 1 [place] 00 :[place] dose, Fri Medical 05/07/20 at Branch 1030, Routine aspirin 2019-06 Yes 81mg 81 mg, Univers chewable 2-04 Oral, ity of tablet 81 15:00: DAILY, [place] mg 00 First dose Medical on Sun [place] 05/07/20 at 0900, Until Discontinu ed, Routine atorvastati 2019-06 Yes 40mg 40 mg, Univ ers n (LIPITOR) 2-04 Oral, QHS, it y of tablet 40 03:00: First dose [place] mg 00 (after Medical last Branch modificati on) on [place] 05/06/20 at 2100, Until Discontinu ed, Routine Sliding 2019-06 Yes Subcutaneo Univ ers Scale 2-03 us, AC+HS, ity of Insulin-Reg 22:30: First dose [place] ular + Fsbg 00 on [facility] Medica l Testing 05/06/20 at Branch 1630, Until Discontinu ed, Routine LORazepam 2019-06- No 1mg 1 mg, Univer s (ATIVAN) 2- 12-03 Oral, ity of tablet 1 mg 22:15: 23:54 ONCE, 1 [place] 00 :00 dose, [facility] Medical 05/06/20 at Branch 1615, Routine Saline 2019- Yes 6mL 6 mL, Univers Bubble 2-03 Injection, ity of [facility]:10: [facility] Starting Branch [facility] 05/06/20 at 1210, Until Discontinu ed, Routine Saline 2019- Yes 6mL 6 mL, Univers Bubble 2-03 Injection, ity of Study 18:10: [facility], Medical Starting [facility] 05/06/20 at 1210, Until Discontinu ed, Routine pantoprazol 2019-06 Yes 20mg 20 mg, Univ ers e 2-03 Oral, ity of (PROTONIX) 15:00: DAILY, [place] EC tablet 00 First dose Medi mone 20 mg on [facility] Branch 05/06/20 at 0900, Until Discontinu ed, Routine heparin 2019-06 Yes 5000U 5,000 Univers (porcine) 2-03 Units, ity of injection 14:00: [place] 5,000 Units 00 us, Q12H, Med ical First dose Branch on [facility] 05/06/20 at 0800, Until Discontinu ed, Routine naproxen 2019-06 2020- No 500mg 500 mg, Univ ers (NAPROSYN) 2- 12-04 Oral, BID ity of tablet 500 14:00: 21:37 MEALS, [place] mg 00 :08 First dose Medical on [facility] 05/06/20 at 0800, Until Discontinu ed, Routine acetaminoph 2019-06 Yes 325mg 325 mg, Un silvia en 2-03 Oral, ity of (TYLENOL) 09:28: Q6HPRN, [place] tablet 325 45 Starting Medic al mg [facility] Branch 05/06/20 at 0328, Until Discontinu ed, Routine, Pain (scale 1-3), Temp > 37.5 C ondansetron 2019-06- No 4mg 4 mg, Slow Univers (ZOFRAN 07-07 IV Push, ity of (PF)) 05:15: 04:21 ONCE, 1 [place] injection 4 00 :00 dose, Wed Med ical mg 05/05/20 at Branch 2315, RUTH ANN FENTanyl PF 2019-06- No 25ug 25 mcg, Un silvia (SUBLIMAZE 07-07 Slow IV ity o f (PF)) 05:15: 04:21 Push, [place] injection 00 :00 ONCE, 1 Medical 25 mcg dose, Wed Branch 05/05/20 at 2315, STAT iohexol 2019-06- No 100mL 100 mL, Unive rs (OMNIPAQUE 07-07 Intravenou it y of 350 03:45: 03:28 s, ONCE, 1 [place] BULK-100 00 :00 dose, Wed Medica l mL) 05/05/20 at [place] injection 2145, 100 mL Routine NaCl 0.9% 2019-06 Yes 5mL 5 mL, Slow Un silvia (NS) 07-07 IV Push, ity of injection 5 03:05: PRN - SEE [place] mL 16 [facility], Branch Starting 05/05/20 at 2105, Until Discontinu ed, 10 mL HYDROcodone 2019- No 1{tbl} 1 tablet, Univers -acetaminop 01-30 Oral, ity of hen (NORCO 05:45: 04:45 ONCE, 1 [place] 5) 5-325 mg 00 :00 dose, [place] Med ical tablet 1 01/30/19 at [facility] h tablet 0045, RUTH ANN traMADol 50 2018-0 Yes [id number] 50mg Take 1 Univers mg tablet 01-2902 tablet by ity o f 00:00: mouth [place] 00 every 6 Medical (six) Branch hours as needed for Pain (scale 4-6). naproxen 2018- Yes [id number] 500mg Take 1 Univers (NAPROSYN) 8- 9102 tablet by ity of 500 mg 00:00: mouth 2 [place] tablet 00 (two) Medical times Branch daily with meals. traMADol 50 2018-0 Yes [id number] 50mg Take 1 Univers mg tablet 8-28 9102 tablet by ity o f 00:00: mouth [place] 00 every 6 Medical (six) Branch hours as needed for Pain (scale 4-6). naproxen 2019-0 Yes [id number] 500mg Take 1 Univers (NAPROSYN) 8-28 9102 tablet by ity of 500 mg 00:00: mouth 2 [place] tablet 00 (two) Medical times Branch daily with meals. traMADol 50 2018-0 Yes [id number] 50mg Take 1 Univers mg tablet 8-28 tablet by ity o f 00:00: mouth [place] 00 every 6 Medical (six) Branch hours as needed for Pain (scale 4-6). naproxen 2019-0 Yes [id number] 500mg Take 1 U nivers (NAPROSYN) 8-28 tablet by ity of 500 mg 00:00: mouth 2 [place] tablet 00 (two) Medical times Branch daily with meals. traMADol 50 2018-0 Yes [id number] 50mg Take 1 Univers mg tablet 8-28 tablet by ity o f 00:00: mouth [place] 00 every 6 Medical (six) Branch hours as needed for Pain (scale 4-6). naproxen 2019-0 Yes [id number] 500mg Take 1 U nivers (NAPROSYN) 8-28 tablet by ity of 500 mg 00:00: mouth 2 [place] tablet 00 (two) Medical times Branch daily with meals. traMADol 50 2019-0 Yes [id number] 50mg Take 1 Univers mg tablet 8-28 tablet by ity o f 00:00: mouth [place] 00 every 6 Medical (six) Branch hours as needed for Pain (scale 4-6). naproxen 2019-0 Yes [id number] 500mg Take 1 U nivers (NAPROSYN) 8-28 tablet by ity of 500 mg 00:00: mouth 2 [place] tablet 00 (two) Medical times Branch daily with meals. traMADol 50 2019-0 Yes [id number] 50mg Take 1 Univers mg tablet 8-28 tablet by ity o f 00:00: mouth [place] 00 every 6 Medical (six) Branch hours as needed for Pain (scale 4-6). naproxen 2019-0 Yes [id number] 500mg Take 1 U nivers (NAPROSYN) 8-28 tablet by ity of 500 mg 00:00: mouth 2 [place] tablet 00 (two) Medical times Branch daily with meals. traMADol 50 2019-0 Yes [id number] 50mg Take 1 Univers mg tablet 8-28 9102 tablet by ity o f 00:00: mouth [place] 00 every 6 Medical (six) Branch hours as needed for Pain (scale 4-6). naproxen 2019-0 Yes [id number] 500mg Take 1 Univers (NAPROSYN) 8-28 9102 tablet by ity of 500 mg 00:00: mouth 2 [place] tablet 00 (two) Medical times Branch daily with meals. traMADol 50 2019-0 Yes [id number] 50mg Take 1 Univers mg tablet 8-28 9102 tablet by ity o f 00:00: mouth [place] 00 every 6 Medical (six) Branch hours as needed for Pain (scale 4-6). naproxen 2019-0 Yes [id number] 500mg Take 1 Univers (NAPROSYN) 8-28 9102 tablet by ity of 500 mg 00:00: mouth 2 [place] tablet 00 (two) Medical times Branch daily with meals. traMADol 50 2018-0 Yes [id number] 50mg Take 1 Univers mg tablet 8- 9102 tablet by ity o f 00:00: mouth [place] 00 every 6 Medical (six) Branch hours as needed for Pain (scale 4-6). naproxen 2019-0 Yes [id number] 500mg Take 1 Univers (NAPROSYN) 8-28 9102 tablet by ity of 500 mg 00:00: mouth 2 [place] tablet 00 (two) Medical times Branch daily with meals. traMADol 50 2019-0 Yes [id number] 50mg Take 1 Univers mg tablet 8- 9102 tablet by ity o f 00:00: mouth [place] 00 every 6 Medical (six) Branch hours as needed for Pain (scale 4-6). naproxen 2019-0 Yes [id number] 500mg Take 1 Univers (NAPROSYN) 8-28 9102 tablet by ity of 500 mg 00:00: mouth 2 [place] tablet 00 (two) Medical times Branch daily with meals. traMADol 50 2019-0 Yes [id number] 50mg Take 1 Univers mg tablet 8-28 9102 tablet by ity o f 00:00: mouth [place] 00 every 6 Medical (six) Branch hours as needed for Pain (scale 4-6). naproxen 2019-0 Yes [id number] 500mg Take 1 Univers (NAPROSYN) 01-29 9102 tablet by ity of 500 mg 00:00: mouth 2 [place] tablet 00 (two) Medical times Branch daily with meals. traMADol 50 Yes [id number] 50mg Take 1 Univers mg tablet 01-29 9102 tablet by ity o f 00:00: mouth [place] 00 every 6 Medical (six) Branch hours as needed for Pain (scale 4-6). naproxen Yes [id number] 500mg Take 1 Univers (NAPROSYN) 01-29 9102 tablet by ity of 500 mg 00:00: mouth 2 [place] tablet 00 (two) Medical times Branch daily with meals. traMADol 50 2020- No [id number] 50mg Take 1 Univers mg tablet 01-29 9102 tablet by ity of 00:00: 00:00 mouth [place] 00 :00 every 6 Medical (six) Branch hours as needed for Pain (scale 4-6). naproxen 2020- No [id number] 500mg Take 1 Univers (NAPROSYN) 01-29 9102 tablet by ity of 500 mg 00:00: 00:00 mouth 2 [place] tablet 00 :00 (two) Medical times Branch daily with meals. Immunizations Ordered Filled Immunization Date Status Comments [facility] e Immunization Name Name SARS-COV-2 COVID-19 2020-06-29 Completed Unive rsity of MODERNA VACCINE 00:00:00 [facility] SARS-COV-2 COVID-19 2020-06-29 Completed Unive rsity of MODERNA VACCINE 00:00:00 [facility] SARS-COV-2 COVID-19 2020-06-29 Completed Unive rsity of MODERNA 12+ YRS 00:00:00 [facility] VACCINE Branch SARS-COV-2 COVID-19 2020-06-01 Completed Unive rsity of MODERNA VACCINE 00:00:00 [facility] SARS-COV-2 COVID-19 2020-06-01 Completed Unive rsity of MODERNA VACCINE 00:00:00 [facility] SARS-COV-2 COVID-19 2020-06-01 Completed Unive rsity of MODERNA 12+ YRS 00:00:00 [facility] Influenza Virus 2020-03-05 Completed Universit y of Vaccine 00:00:00 [facility] Influenza Virus 2020-03-05 Completed Universit y of Vaccine 00:00:00 [facility] Influenza Virus 2020-03-05 Completed Universit y of Vaccine 00:00:00 [facility] Influenza Virus 2020-03-05 Completed Universit y of Vaccine 00:00:00 [facility] Influenza Virus 2020-03-05 Completed Universit y of Vaccine 00:00:00 [facility] Influenza Virus 2020-03-05 Completed Universit y of Vaccine 00:00:00 [facility] Influenza High Dose 2019-04-06 Completed Unive rsity of 00:00:00 [facility] Influenza High Dose 2019-04-06 Completed Unive rsity of 00:00:00 [facility] Influenza High Dose 2019-04-06 Completed Unive rsity of 00:00:00 [facility] Influenza High Dose 2019-04-06 Completed Unive rsity of 00:00:00 [facility] Influenza High Dose 2019-04-06 Completed Unive rsity of 00:00:00 [facility] Influenza High Dose 2019-04-06 Completed Unive rsity of 00:00:00 [facility] Zoster Vaccine 2019-01-11 Completed University of Recombinant 00:00:00 [facility] Zoster Vaccine 2019-01-11 Completed University of Recombinant 00:00:00 [facility] Zoster Vaccine 2019-01-11 Completed University of Recombinant 00:00:00 [facility] Zoster Vaccine 2019-01-11 Completed University of Recombinant 00:00:00 [facility] Zoster Vaccine 2019-01-11 Completed University of Recombinant 00:00:00 [facility] Zoster Vaccine 2019-01-11 Completed University of Recombinant 00:00:00 [facility] Zoster Vaccine 2018-08-29 Completed University of Recombinant 00:00:00 [facility] Zoster Vaccine 2018-08-29 Completed University of Recombinant 00:00:00 [facility] Zoster Vaccine 2018-08-29 Completed University of Recombinant 00:00:00 [facility] Zoster Vaccine 2018-08-29 Completed University of Recombinant 00:00:00 [facility] Zoster Vaccine 2018-08-29 Completed University of Recombinant 00:00:00 [facility] Zoster Vaccine 2018-08-29 Completed University of Recombinant 00:00:00 [facility] Vital Signs Vital Name Observation Time Observation Value Comments Source Systolic blood 2020-09-08 16:24:00 110 mm[Hg] Univer sity of pressure [place] [facility] Diastolic blood 2020-09-08 16:24:00 56 mm[Hg] Unive rsity of pressure [place] [facility] Heart rate 2020-09-08 16:24:00 65 /min Universi ty of [place] [facility] Body temperature 2020-09-08 16:24:00 36.67 Teresa Univ ersity of [place] [facility] Respiratory rate 2020-09-08 16:24:00 16 /min Univ ersity of [place] [facility] Oxygen saturation in 2020-09-08 16:24:00 96 /min University of Arterial blood by [place] [employer] Pulse oximetry Branch Body height 2020-09-08 07:10:00 149.9 cm Universi ty of [place] [facility] Body weight 2020-09-08 07:10:00 58.968 kg Universi ty of [place] [facility] BMI 2020-09-08 07:10:00 26.26 kg/m2 Universi ty of [place] [facility] Systolic blood 2020-05-08 19:57:00 157 mm[Hg] Univer sity of pressure [place] [facility] Diastolic blood 2020-05-08 19:57:00 82 mm[Hg] Unive rsity of pressure [place] [facility] Heart rate 2020-05-08 19:57:00 81 /min Universi ty of [place] [facility] Body temperature 2020-05-08 19:57:00 35.94 Teresa Univ ersity of [place] [facility] Respiratory rate 2020-05-08 19:57:00 16 /min Univ ersity of [place] [facility] Oxygen saturation in 2020-05-08 19:57:00 97 /min University of Arterial blood by [facility] Pulse oximetry Branch Body height 2020-05-06 03:03:00 149.9 cm Universi ty of [place] [facility] Body weight 2020-05-06 03:03:00 60.328 kg Universi ty of [place] [facility] BMI 2020-05-06 03:03:00 26.86 kg/m2 Universi ty of [place] [facility] Systolic blood 2019-01-30 14:31:00 151 mm[Hg] Univer sity of pressure [place] [facility] Diastolic blood 2019-01-30 14:31:00 74 mm[Hg] Unive rsity of pressure [place] [facility] Heart rate 2019-01-30 14:28:00 65 /min Universi ty [facility] [place] Medical [place] Body height 2019-01-30 14:28:00 149.9 cm Universi of [place] [facility] Body weight 2019-01-30 14:28:[address] [facility] Medical Branch BMI 2019-01-30 14:28:00 24.64 kg/m2 Universi [facility] Systolic blood 2019-01-30 04:00:00 122 mm[Hg] Univer sity of pressure [facility] Diastolic blood 2019-01-30 04:00:00 54 mm[Hg] [facility] Heart rate 2019-01-30 04:00:00 75 /min [facility] Oxygen saturation in 2019-01-30 04:00:00 94 /min [facility] Arterial blood by [facility] Pulse oximetry Branch Body temperature 2019-01-30 02:25:00 37 [facility] Body height 2019-01-30 02:15:[address] [facility] Medical [place] Body weight 2019-01-30 02:15:[address] [facility] Medical [place] BMI 2019-01-30 02:15:00 24.64 kg/m2 [facility] Procedures Procedure Date / Time Performing Clinician Source Performed REFERRAL- 2022-12-22 05:01:00 Doctor Unassigned, [facility] REQUEST/RESPONSE [place] [facility] DUPLEX VENOUS LEGS 2020-09-08 16:46:[facility] - BY [facility]ASCULAR [facility] LAB PHOSPHORUS 2020-09-08 09:32:00 Maral [facility] MAGNESIUM 2020-09-08 09:32:00 Maral [facility] BASIC METABOLIC PANEL 2020-09-08 09:32:00 Maral [facility] (NA, K, CL, CO2, GLUCOSE, Medica l Branch BUN, CREATININE, CA) SEDIMENTATION RATE 2020-09-08 09:32:00 Jem [facility] CBC WITH DIFF 2020-09-08 09:32:00 Maral [facility] CT STROKE ANGIOGRAM HEAD 2020-09-08 03:20:03 Virgie Luna [facility] CT STROKE ANGIOGRAM NECK 2020-09-08 03:20:03 Virgie Luna [facility] CT STROKE HEAD WO 2020-09-08 03:11:34 Virgie Luna [facility] CONTRAST [facility] TROPONIN I 2020-09-08 02:58:00 Virgie Luna [place] [facility] [place] [facility] THYROID STIMULATING 2020-09-08 02:58:00 Maral [facility] HORMONE [facility] BASIC METABOLIC PANEL 2020-09-08 02:58:00 Virgie Luna [facility] (NA, K, CL, CO2, GLUCOSE, Medica l Branch BUN, CREATININE, CA) CBC WITHOUT DIFF 2020-09-08 02:58:00 Virgie Luna [facility] GLYCOSYLATED HEMOGLOBIN 2020-09-08 02:58:00 Maral [facility] (A1C) [facility] PROTHROMBIN TIME / INR 2020-09-08 02:58:00 Virgie Luna [facility] ACTIVATED PARTIAL 2020-09-08 02:58:00 Virgie Luna [facility] COVID-19 (ID NOW RAPID 2020-09-08 02:58:00 Virgie Luna [facility] TESTING) [facility] HB ECG ROUTINE & RHYTHM 2020-09-08 02:37:18 Virgie Luna [facility] STRIP [facility] POCT GLUCOSE (AUTOMATED) 2020-09-08 02:36:00 Doctor Unassigned, [facility] [place] [facility] EMERGENCY SERVICES 2020-09-07 05:01:00 Doctor Unassigned, [facility] AGREEMENTS AND [place] [facility] AUTHORIZATIONS POCT GLUCOSE (AUTOMATED) 2020-05-08 15:37:00 Ricardo Kenyon [place] [facility] POCT GLUCOSE (AUTOMATED) 2020-05-08 02:55:00 Ricardo Kenyon [facility] MR VENOGRAM HEAD W 2020-05-08 01:38:27 Maral [facility] CONTRAST [facility] MR STROKE BRAIN WO 2020-05-08 01:04:51 Maral [facility] CONTRAST [facility] POCT GLUCOSE (AUTOMATED) 2020-05-07 22:16:00 [facility] 2020-05-07 18:49:29 [facility] [place] [facility] BONE SURVEY 2020-05-07 18:47:38 [facility] 2020-05-07 18:41:00 [facility] PO[facility] GLUCOSE (AUTOMATED) 2020-05-07 14:04:00 [facility] MAGNESIUM 2020-05-07 11:24:00 Felisa [facility] BASIC METABOLIC PANEL 2020-05-07 11:24:00 Vic Roberto [facility] (NA, K, CL, CO2, GLUCOSE, Medica l Branch BUN, CREATININE, CA) CBC WITH DIFF 2020-05-07 11:24:00 Felisa [facility] POCT GLUCOSE (AUTOMATED) 2020-05-07 04:20:00 [facility] PO[facility] GLUCOSE (AUTOMATED) 2020-05-07 00:01:00 [facility] W/DOPPLER 2020-05-06 16:27:[address] [facility] MAGNESIUM 2020-05-06 10:08:00 Felisa [facility] C-REACTIVE PROTEIN 2020-05-06 10:08:00 Vic Roberto [facility] BASIC METABOLIC PANEL 2020-05-06 10:08:00 Vic Roberto [facility] (NA, K, CL, CO2, GLUCOSE, Medica l Branch BUN, CREATININE, CA) SEDIMENTATION RATE 2020-05-06 10:08:00 Vic Roberto [facility] CBC WITH DIFF 2020-05-06 10:08:00 Vic Roberto [place] [facility] XR STROKE CHEST 1 VW 2020-05-06 03:38:20 Ricardo Kenyon [facility] CT STROKE HEAD WO 2020-05-06 03:31:57 Ricardo Kenyon [facility] CONTRAST [facility] CT STROKE ANGIOGRAM HEAD 2020-05-06 03:31:57 [facility] NECK 2020-05-06 03:31:57 Ricardo Kenyon [facility] HB CREATININE BLOOD 2020-05-06 03:11:00 Ricardo Kenyon [facility] TROPONIN I 2020-05-06 03:07:00 Ricardo Kenyon [facility] THYROID STIMULATING 2020-05-06 03:07:00 Vic Roberto [facility] HORMONE [facility] Branch BASIC METABOLIC PANEL 2020-05-06 03:07:00 Ricardo Kenyon [facility] (NA, K, CL, CO2, GLUCOSE, Medica l Branch BUN, CREATININE, CA) LIPID PANEL (47585)(TOTAL 2020-05-06 03:07:00 Vic Roberto [facility] CHOLESTEROL, [facility] TRIGLYCERIDES, HDL) CBC WITHOUT DIFF 2020-05-06 03:07:00 Ricardo Kenyon [facility] GLYCOSYLATED HEMOGLOBIN 2020-05-06 03:07:00 Vic Roberto [facility] (A1C) [facility] PROTHROMBIN TIME / INR 2020-05-06 03:07:00 Ricardo Kenyon [facility] ACTIVATED PARTIAL 2020-05-06 03:07:00 Ricardo Kenyon [facility] THRMPLAS CHAGO [facility] COVID-19 (ID NOW RAPID 2020-05-06 03:07:00 Ricardo Kenyon [facility] TESTING) Medical Branch LAB ONLY COVID 2020-05-06 03:07:[address] [facility] HB ECG ROUTINE & RHYTHM 2020-05-06 03:01:09 Ricardo Kenyon Uni versity of [facility] EMERGENCY SERVICES 2020-05-05 06:01:00 Doctor Ton, [facility] AGREEMENTS AND [facility] [place] AUTHORIZATIONS HOSPITAL ADMISSION 2020-04-05 06:01:00 Doctor Ton [facility] [place] [facility] MEDICATION CORRESPONDENCE 2019-08-11 05:01:00 Doctor Ton, [facility] [place] [facility] XR KNEE <3 VW LEFT 2019-01-30 04:40:52 Yasmani Dee [facility] Encounters Start End Encounter Admission Attending Care Care Encounter Source Date/Time Date/Time Type Type Clinicians Facility Department ID 2021-04-03 Emergency [facility] [id number] Univers 11:10:14 ity [facility] 2023-01-18 2023-01-18 Outpatient R CHICHI [facility] [id number] Univers 09:00:00 09:00:00 RAMIRO ity [facility] 2022-12-22 2022-12-22 Orders Doctor RIKKI [id number] Univers 00:00:00 00:00:00 Only Unassigned, [place] 350.1.13.10 ity of [place] [facility] 4.2.7.2.686 [place] [phone] [facility] 009 Branch 2020-09-09 2020-09-09 Transition Lawrence Norman [id number] Univers 00:00:00 00:00:00 of Care Elda Azul [id number] [place] [phone] [facility] 403 Branch 2020-09-07 2020-09-08 Emergency Virgie Luna 1.2.840. 114 [id number] Univers 21:32:00 18:23:00 Kendall Schultz 350. 1.13.10 ity of [facility] 4.2.7.2.686 [place] [phone] [facility] 098 Branch 2020-06-29 2020-06-29 Outpatient R CHINO [facility] [id number] Univers 09:30:00 09:30:00 TAMMI ity of [facility] 2020-06-01 2020-06-01 Outpatient R CHINO [facility] [id number] Univers 11:00:00 11:00:00 TAMMI ity [facility] 2020-06-01 2020-06-01 [facility] [id number] Univers 11:00:00 11:00:00 TAMMI ity [facility] 2020-05-10 2020-05-10 Transition Lawrence Norman [id number] Univers 00:00:00 00:00:00 of Care Elda Jorge Alberto 350.1.13.10 [place] [phone] [facility] 403 Branch 2020-05-05 2020-05-08 Inpatient X JUAN LUIS PAGE [facility] DAVID [id number] Univers 21:00:00 14:30:00 ity of [facility] 2020-05-05 2020-05-08 Hospital Ricardo Kenyon Guera 1.2.840. 114 [id number] Univers 21:00:00 14:30:00 Encounter Juan Luis Page 350.1.13.10 ity of [facility] 4.2.7.2.686 [place] [phone] [facility] 099 Branch 2020-04-05 2020-04-05 Orders Doctor RIKKI 1.2.840.114 [id number] Univers 00:00:00 00:00:00 Only Unassigned, [place] 350.1.13.10 ity of [place] [facility] 4.2.7.2.686 [place] [phone] [facility] 009 Branch 2019-09-22 2019-09-22 Telephone Nurse, [facility] [id number] Univers 00:00:00 00:00:00 General Yary 350.1.13.10 i ty of [place] [phone] Ca dical [facility] 2019-09-20 2019-09-[address] [facility] [id number] Univers 00:00:00 00:00:00 Soham Pringle 350.1.13.10 i ty [place] [phone] Ca dical nal [address] [facility] 2019-09-18 2019-09-18 Nurse Nurse, [facility] General Surgery [facility] 1.2.840.114 [id number] Univers 16:14:20 16:29:20 Visit Soham Schultz Parag Pringle 350.1.13.10 [place] [phone] [facility] [address] [facility] 2019-09-18 2019-09-18 Outpatient R ANTOINE [facility] [id number] Univers 16:15:00 16:15:00 SOHAM ity of [facility] 2019-09-18 2019-09-18 Telephone Schultz [facility] 1.2.840.114 [id number] Univers 00:00:00 00:00:00 Soham Botello HEALTH 350.1.13.10 i ty of [place] [phone] [facility] 089 [place] 2019-08-11 2019-08-11 Orders Doctor RIKKI 1.2.840.114 [id number] Univers 00:00:00 00:00:00 Only Unassigned, [place] 350.1.13.10 ity of [place] [facility] 4.2.7.2.686 [place] [phone] [facility] 009 [place] 2019-01-30 2019-01-[address] [facility] 1.2.840.114 [id number] Univers 09:24:42 10:24:58 Visit Andres S Health 350.1.13.10 it y of Surgical 4.2.7.2.686 [place] Specialti [phone] Ca dicct es [address] [facility] 2019-01-29 2019-01-[address] [facility] 1.2.030.847 [id number] Univers 21:12:31 00:31:00 Ros Pringle 350.1.13.10 i ty of [place] 4.2.7.2.686 [facility] [phone] [facility] 084 Branch 2019-01-29 2019-01-29 [facility] Alphonso HerbertCorinne [facility] 1.2.8 40.114 [id number] Univers 22:00:00 23:59:00 Jimenez Freitas, Adc [facility] [place] 3 50.1.13.10 ity melia Angel 4.2.7.2.686 [facility] [phone] [facility] 206 Branch Results Test Description Test Time Test Comments Results Result Comments Source SEDIMENTATION RATE 2020-09-08 15:01:22 Test Item Value Reference Range Interpretation Comme nts ESR (test code = 4529203681) See_Comment [Automated message] The system which generated this result transmitted ref erence range: 0 - 20 mm/HR. The r eference range was not used to int erpret this result as normal/abnor mal. Lab Interpretation (test code = Normal 23109-3) [facility] Metabolic Panel (Na, K, Cl, CO2, Glucose, BUN, Creatinine, Ca)2020-09-08 10:28:17 Test Item Value Reference Range Interpretation Comments NA (test code = 137 mmol/L 135-145 5682004920) K (test code = 3.8 mmol/L 3.5-5.0 Slight 8963097337) hemolysis CL (test code = 106 mmol/L 98-108 1870226142) CO2 TOTAL (test code 25 mmol/L 23-31 = 2258221750) AGAP (test code = 2-16 3061841669) BUN (test code = 13 mg/dL 7-23 Slight 9178010856) hemolysis GLUCOSE (test code = 106 mg/dL 70-110 4442553647) CREATININE (test code 0.60 mg/dL 0.50-1.04 = 6157972678) CALCIUM (test code = 8.2 mg/dL 8.6-10.6 L 8145330385) eGFR (test code = mL/min/1.73m2 9125172000) MELO (test code = MELO) Association of Glomerular Filtration Rate (GFR) and Staging of Kidney Disease* + -----+ --------+ +| GFR (mL/min/1.73 m2) ?| With Kidney Damage ?| ?Without Kidney Damage+ +------- +---- --+| ?>90 ?| ?Stage one ?| ? Normal ?+ ------+ ---------+--------- +| ?60-89 ?| ?Stage two ?| ? Decreased GFR ? + -----+ --------+ +| ?30-59 ?| ?Stage three ?| ? Stage three ? + -----+ --------+ +| ?15-29 ?| ?Stage four ? | ? Stage four ?+ ------+ ---------+--------- +| ?<15 (or dialysis) ? ?| ?Stage five ? | ? Stage five ?+ ------+ ---------+--------- + *Each stage assumes the associated GFR level has been in effect for at least three months. ?Stages 1 to 5, with or without kidney disease, indicate chronic kidney disease. Notes: Determination of stages one and two (with eGFR >59mL/min/1.73 m2) requires estimation of kidney damage for at least three months as defined by structural or functional abnormalities of the kidney, manifested by either:Pathological abnormalities or Markers of kidney damage (including abnormalities in the composition of the blood or urine or abnormalities in imaging tests). Lab Interpretation Abnormal (test code = 33986-2) [facility]wood[facility] [id number] 10:28:17 Test Item Value Reference Range Interpretation Comments MAGNESIUM (test code = 2699794344) 2.0 mg/dL 1.7-2.4 Lab Interpretation (test code = Normal 39634-5) [facility]wood[facility]osphorus [id number] 10:28:17 Test Item Value Reference Range Interpretation Comments PHOSPHORUS (test code = 4154571020) 3.8 mg/dL 2.5-5.0 Lab Interpretation (test code = Normal 74747-5) [facility]woodThyroid Stimulating [id number] 10:09:55 Test Item Value Reference Range Interpretation Comments TSH (test code = See_Comment Biotin has been 9157008509) reported to cau se a negative bias, interpret resul ts relative to pat ramy's use of biotin. [Automated mess age] The system [employer] generated this result transmitted ref erence range: 0.45 - 4 .70 mIU/L. The refe rence range was not u sed to interpret this result as normal/abnor mal. Lab Interpretation (test Normal code = 61374-1) [facility]wood[facility]YCOSYL[facility] HEMOGLOBIN (A1C)2020-09-08 09:56:02 Test Item Value Reference Range Interpretation Comments HGB A1C (test code = 5.9 % 4.0-6.0 4548-4) MELO (test code = MELO) %A1C (NGSP) Interpretation (ADA)4.8-5.6 ? ? Normal or (Non-Diabetic Range)5.7-6.4 ? ? Increased Risk (Pre-Diabetic)>6.5 ?Diabetes Indicated Lab Interpretation Normal (test code = 26892-8) [facility]woodCBC with [id number] 09:53:50 Test Item Value Reference Range Interpretation Comments WBC (test code = See_Comment [Automated message] 6090-2) The system [employer] generated this result transmitted ref erence range: 4.30 - 1 1.10 10*3/?L. The re ference range was not u sed to interpret this result as normal/abnor mal. RBC (test code = See_Comment [Automated message] 999-8) The system [employer] generated this result transmitted ref erence range: 3.93 - 5 .25 10*6/?L. The re ference range was not u sed to interpret this result as normal/abnor mal. HGB (test code = 12.7 g/dL 11.6-15.0 718-7) HCT (test code = 37.5 % 35.7-45.2 4544-3) MCV (test code = 88.4 fL 80.6-95.5 787-2) MCH (test code = 30.0 pg 25.9-32.8 785-6) MCHC (test code = 33.9 g/dL 31.6-35.1 786-4) RDW-SD (test code 41.1 fL 39.0-49.9 = 16963-3) RDW-CV (test code 12.7 % 12.0-15.5 = 788-0) PLT (test code = See_Comment [Automated message] -3) The system [employer] generated this result transmitted ref erence range: 166 - 35 8 10*3/?L. The re ference range was not u sed to interpret this result as normal/abnor mal. MPV (test code = 10.2 fL 9.5-12.9 97746-4) NRBC/100 WBC (test See_Comment [Automat ed message] code = 2554803182) The syste m which generated this result transmitted ref erence range: 0.0 - 10 .0 /100 WBCs. The refer ence range was not u sed to interpret this result as normal/abnor mal. NRBC x10^3 (test <0.01 See_Comment [Automated message] code = 8156313611) The syste m which generated this result transmitted ref erence range: 10*3/?L. The reference range was not used to interpr et this result as normal/abnormal . GRAN MAT (NEUT) % 53.8 % (test code = 770-8) IMM GRAN % (test 0.30 % code = 6737740548) LYMPH % (test code 35.7 % = 736-9) MONO % (test code 8.0 % = 5905-5) EOS % (test code = 1.4 % 713-8) BASO % (test code 0.8 % = 706-2) GRAN MAT 3.36 10*3/uL 1.88-7.09 x10^3(ANC) (test code = 1712644452) IMM GRAN x10^3 <0.03 0.00-0.06 (test code = 7099567022) LYMPH x10^3 (test 2.23 10*3/uL 1.32-3.29 code = 731-0) MONO x10^3 (test 0.50 10*3/uL 0.33-0.92 code = 742-7) EOS x10^3 (test 0.09 10*3/uL 0.03-0.39 code = 711-2) BASO x10^3 (test 0.05 10*3/uL 0.01-0.07 code = 704-7) [facility]wood[facility] ACUTE STROKE ANGIOGRAM [id number] 04:03:20 No high-grade occlusion/stenosis, dissection, or aneurysm of theintracranial and extracranial arteries. Preliminary Report Dictated by Resident: Aletha Poole I, Brett Rodarte MD., have reviewed thisstudy and agree with the abovereport.EXAM: CT STROKE ANGIOGRAM HEAD, CT STROKE ANGIOGRAM NECK HISTORY: ?Acute Stroke Rad: please obtain POCT creatinine prior to CTAhead/neck TECHNIQUE: Axial CT imagingof the [place] and from the skull baseto the superior mediastinum was obtained during arterial phase after theintravenous administration of IV contrast. Coronal, sagittal, and MIPS wereconstructed. COMPARISON: Same day CT head CTA HEAD: The PICA origin is visualized bilaterally. The basilar artery is normal incaliber. The superior cerebellar arteries are patent. Mild focal stenosisof left P2PCA The posterior cerebral arteries are otherwise patent. Nosizable posterior communicating arteries visualized. The distal cervical, petrous, cavernous and supraclinoid internal carotidarteries are patent. The anterior and middle cerebral arteries are patent. An anteriorcommunicating artery is visualized. CTA NECK: Aortic arch and arch vessel origins: Four-vessel branching anatomy of theaortic arch with left vertebral artery arising from the aortic arch. Mildaortic arch atherosclerotic calcifications. The proximal course of the leftvertebral and left common carotid arteries is tortuous. Innominateand subclavian arteries: The innominate and subclavian arteriesare widely patent. Common carotids: The cervical, common carotid, carotid bulbs, internal, andintracranial carotid artery segments are patent bilaterally withoutflow-limiting stenosis. Mild calcified plaque affect the left carotid bulbwithno flow-limiting stenosis. Vertebral arteries: The vertebral arteries are codominant. The vertebralarteries are patent without flow-limiting stenosis from its origin andthrough their vertebral and intradural segments. Cervical soft tissues: Grossly unremarkable. Lung apices: The visualized lung fieldsare clear. Cervical spine: A well-defined sclerotic focus in C7 vertebral body, likelya bony island.[employer], Radiant Results Inft User - 09/07/2020 11:04 PM CDTEXAM: CT STROKE ANGIOGRAM HEAD, CT STROKE ANGIOGRAM NECKHISTORY: Acute Stroke Rad: please obtain POCT creatinine prior to CTAhead/neckTECHNIQUE:Axial CT imaging of the [place] and from the skull baseto the superior mediastinum was obtained during arterial phase after theintravenous administration of IV contrast. Coronal, sagittal, andMIPS wereconstructed.COMPARISON: Same day CT headCTA HEAD:The PICA origin is visualized bilaterally.The basilar artery is normal incaliber. The superior cerebellar arteries are patent. 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 Nosizable posterior communicating arteries visualized.The distal cervical, petrous, cavernous and supraclinoid internal carotidarteries are patent. The anterior and middle cerebral arteries are patent. An anteriorcommunicating artery is visualized.CTA NECK:Aortic arch and arch vessel origins: Four-vessel branching anatomy of theaortic arch with left vertebral artery arising from the aortic arch. Mildaortic arch atherosclerotic calcifications. The proximal course of the leftvertebral and left common carotid arteries is tortuous.Innominate and subclavian arteries: The innominate and subclavian arteriesare widely patent.Common carotids: The cervical, common carotid, carotid bulbs, internal, andintracranial carotid artery segments are patent bilaterally withoutflow-limiting stenosis. Mild calcified plaque affect the left carotidbulbwith no flow-limiting stenosis.Vertebral arteries: The vertebral arteries are codominant. The rom tebralarteries are patent without flow-limiting stenosis from its origin andthrough their vertebral and intradural segments.Cervical soft tissues: Grossly unremarkable. Lung apices: The visualized lungfields are clear.Cervical spine: A well-defined sclerotic focus in C7 vertebral body, likelya bony is land.IMPRESSIONNo high-grade occlusion/stenosis, dissection, or aneurysm of theintracranial and extracranial arteries.Preliminary Report Dictated by Resident: Brett Miguel MD., have reviewed this study and agree with the abovereport.[facility] [id number] 04:03:20 No high-grade occlusion/stenosis, dissection, or aneurysm of theintracranial and extracranial arteries. Preliminary Report Dictated by Resident: Brett Dunn MD., have reviewed this study and agree with the abovereport.EXAM: CT STROKE ANGIOGRAM HEAD, CT STROKE ANGIOGRAM NECK HISTORY: ?Acute Stroke Rad: please obtain POCT creatinine prior to CTAhead/neck TECHNIQUE: Axial CT imagingof the [place] and from the skull baseto the superior mediastinum was obtained during arterial phase after theintravenous administration of IV contrast. Coronal, sagittal, and MIPS wereconstructed. COMPARISON: Same day CT head CTA HEAD: The PICA origin is visualized bilaterally. The basilar artery is normal incaliber. The superior cerebellar arteries are patent. Mild focal stenosisof left P2PCA The posterior cerebral arteries are otherwise patent. Nosizable posterior communicating arteriesvisualized. The distal cervical, petrous, cavernous and supraclinoid internal carotidarteries are patent. The anterior and middle cerebral arteries are patent. An anteriorcommunicating artery is visualized. CTA NECK: Aortic arch and arch vessel origins: Four-vessel branching anatomy of theaortic arch with left vertebral artery arising from the aortic arch. Mildaortic arch atherosclerotic calcifications. The proximal course of the leftvertebral and left common carotid arteries is tortuous. Innominateand subclavian arteries: The innominate and subclavian arteriesare widely patent. Common carotids: The cervical, common carotid, carotid bulbs, internal, andintracranial carotid artery segments are patent bilaterally withoutflow-limiting stenosis. Mild calcified plaque affect the left carotid bulbwithno flow-limiting stenosis. Vertebral arteries: The vertebral arteries are codominant. The vertebralarteries are patent without flow-limiting stenosis from its origin andthrough their vertebral and intradural segments. Cervical soft tissues: Grossly unremarkable. Lung apices: The visualized lung fieldsare clear. Cervical spine: A well-defined sclerotic focus in C7 vertebral body, likelya bony island.[employer], Radiant Results Inft User - 09/07/2020 11:04 PM CDTEXAM: CT STROKE ANGIOGRAM HEAD, CT STROKE AN GIOGRAM NECKHISTORY: Acute Stroke Rad: please obtain POCT creatinine prior to CTAhead/neckTECHNIQUE:Axial CT imaging of the [place] and from the skull baseto the superior mediastinum was obtained during arterial phase after theintravenous administration of IV contrast. Coronal, sagittal, andMIPS wereconstructed.COMPARISON: Same day CT headCTA HEAD:The PICA origin is visualized bilaterally.The basilar artery is normal incaliber. The superior cerebellar arteries are patent. 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 Nosizable posterior communicating arteries visualized.The distal cervical, petrous, cavernous and supraclinoid internal carotidarteries are patent. The anterior and middle cerebral arteries are patent. An anteriorcommunicating artery is visualized.CTA NECK:Aortic arch and arch vessel origins: Four-vessel branching anatomy of theaortic arch with left vertebral artery arising from the aortic arch. Mildaortic arch atherosclerotic calcifications. The proximal course of the leftvertebral and left common carotid arteries is tortuous.Innominate and subclavian arteries: The innominate and subclavian arteriesare widely patent.Common carotids: The cervical, common carotid, carotid bulbs, internal, andintracranial carotid artery segments are patent bilaterally withoutflow-limiting stenosis. Mild calcified plaque affect the left carotidbulbwith no flow-limiting stenosis.Vertebral arteries: The vertebral arteries are codominant. The rom tebralarteries are patent without flow-limiting stenosis from its origin andthrough their vertebral and intradural segments.Cervical soft tissues: Grossly unremarkable. Lung apices: The visualized lungfields are clear.Cervical spine: A well-defined sclerotic focus in C7 vertebral body, likelya bony is land.IMPRESSIONNo high-grade occlusion/stenosis, dissection, or aneurysm of theintracranial and extracranial arteries.Preliminary Report Dictated by Resident: Brett Miguel MD., have reviewed this study and agree with the abovereport.[facility] I - Code Stroke 2020-09-08 03:26:09 Test Item Value Reference Range Interpretation Comments TROPONIN I (test 0.001 ng/mL See_Comment [Automated code = 2256806715) message] The system which generated this result transmitted reference range : <=0.034. The reference range was not used to interpret this result as normal/abnormal . MELO (test code = Equal or Less than MELO) 0.034 ng/ml---Normal ?Note: Cardiac troponin begins to rise 3-4 hours after the onset of ischemia. Repeat in 4-6 hours if the sample was drawn within 3-4 hours of the onset of the symptom and found normal. Between 0.035 and 0.120 ng/mL--- Borderline. Questionable myocardial injury or necrosis ? ?Note: Serial measurement may be necessary to confirm or exclude the diagnosis of myocardial injury or necrosis; Clinical correlation (symptoms, EKGs, imaging studies, and others) required; Repeat in 4-6 hours if clinically indicated. ? Equal or Higher than 0.121 ng/mL---Abnormal. Myocardial Injury or Necrosis Likely ? Biotin has been reported to cause a negative bias, interpret results relative to patient's use of biotin. ? Lab Interpretation Normal (test code = 21237-3) [facility] NOW RAPID TESTING[facility]2020-09-08 03:18:06 Test Item Value Reference Range Interpretation Comments SARS-CoV-2 Rapid ID NOW Not Detected Not Detected (test code = 15612-5) MELO (test code = MELO) ID NOW COVID-19 Assay is an isothermal nucleic acid amplification test intended for the qualitative detection of nucleic acid from SARS-CoV-2 viral RNA in nasopharyngeal (TELEVISION INSTALLER) specimens. It is used under Emergency Use Authorization (EUA) by FDA. The limit of detection (LOD) of the assay is 125 Genome Equivalents/mL. A positive result is indicative of the presence of SARS-CoV-2 RNA. ?Clinical correlation with patient history and other diagnostic information is necessary to determine patient infection status. A negative (Not Detected) result does not preclude SARS-CoV-2 infection. In patients with clinical symptoms and other tests that are consistent with SARS-CoV-2 infection, negative results should be treated as presumptive negative and a new specimen should be tested with alternative PCR molecular test. Invalid: Please collect a new specimen for repeat patient testing if clinically indicated. Lab Interpretation Normal (test code = 52483-6) [facility] WO [id number] 03:16:40 No acute intracranial abnormality.EXAM: CT STROKE HEAD WO CONTRAST HISTORY: Neuro deficit, acute, stroke suspected TECHNIQUE: CT head was performed without intravenous contrast. Sagittal andcoronal reformats were generated. COMPARISON: None. FINDINGS: The ventricles and sulci are normal in caliber and configuration. Nohydrocephalus, midline shift or pathological extra-axial fluid collectionis present. The basal cisterns are unremarkable. There is no acute intracranial hemorrhage or significant masseffect. Noparenchymal attenuation abnormality. The waddell-white matter differentiationis preserved. The mastoid air cells and paranasal air sinuses are clear. The calvariumand central skull base are unremarkable. [facility], Radiant Results Inft User - 09/07/2020 10:17 PM CDTEXAM: CT STROKE HEAD WO CONTRASTHISTORY: Neuro deficit, acute, stroke suspected TECHNIQUE: CT head was performed without intravenous contrast. Sagittal andcoronal reformats were generated.COMPARISON: None.FINDINGS: The ventricles and sulci are normal in caliber and configuration. Nohydrocephalus, midline shift or pathological extra-axial fluid collectionis present. The basal cisterns are unremarkable.There is no acute intracranial hemorrhage or significant mass effect. Noparenchymal attenuation abnormality. The waddell-white matter diffe rentiationis preserved.The mastoid air cells and paranasal air sinuses are clear. The calvariumand central skull base are unremarkable.IMPRESSIONNo acute intracranial abnormality.[facility] Metabolic Panel (NA, K, CL, CO2, Glucose, BUN, Creatinine, CA) - Code [id number] 03:14:45 Test Item Value Reference Range Interpretation Comments NA (test code = 140 mmol/L 135-145 2333132622) K (test code = 3.9 mmol/L 3.5-5.0 1866623474) CL (test code = 105 mmol/L 98-108 5784701286) CO2 TOTAL (test code = 26 mmol/L 23-31 2701600665) AGAP (test code = 2-16 2795408542) BUN (test code = 16 mg/dL 7-23 8863692640) GLUCOSE (test code = 149 mg/dL 70-110 H 7838147115) CREATININE (test code = 0.70 mg/dL 0.50-1.04 5585573147) CALCIUM (test code = 9.5 mg/dL 8.6-10.6 9324679917) eGFR (test code = mL/min/1.73m2 1078926826) MELO (test code = MELO) Association of Glomerular Filtration Rate (GFR) and Staging of Kidney Disease* + --+ --+ ------+| GFR (mL/min/1.73 m2) ?| With Kidney Damage ?| ?Without Kidney Damage+ --------+ --------+ +| ?>90 ?| ?Stage one ?| ? Normal ?+ ---+ ---+ -------+| ?60-89 ?| ?Stage two ?| ? Decreased GFR ? + --+ --+ ------+| ?30-59 ?| ?Stage three ?| ? Stage three ? + --+ --+ ------+| ?15-29 ?| ?Stage four ? | ? Stage four ?+ ---+ ---+ -------+| ?<15 (or dialysis) ? ?| ?Stage five ? | ? Stage five ?+ ---+ ---+ -------+ *Each stage assumes the associated GFR level has been in effect for at least three months. ?Stages 1 to 5, with or without kidney disease, indicate chronic kidney disease. Notes: Determination of stages one and two (with eGFR >59mL/min/1.73 m2) requires estimation of kidney damage for at least three months as defined by structural or functional abnormalities of the kidney, manifested by either:Pathological abnormalities or Markers of kidney damage (including abnormalities in the composition of the blood or urine or abnormalities in imaging tests). Lab Interpretation Abnormal (test code = 79243-5) [facility] - Code [id number] 03:13:43 Test Item Value Reference Range Interpretation Comments APTT Patient (test See_Comment [Automat ed code = 3173-2) message] The system which generated this result transmitted reference range : 23 - 38 Seconds . The reference range was not used to interpr et this result as normal/abnormal . MELO (test code = MELO) The [facility] patient population mean normal value for aPTT is 30 seconds. Lab Interpretation Normal (test code = 94792-5) [facility]woodProthrombin Time / INR - Code [id number] 03:11:41 Test Item Value Reference Range Interpretation Comments PROTIME PATIENT (test See_Comment [Auto mated message] code = 5964-2) The system wh ich generated this result transmitted ref erence range: 12.0 - 1 4.7 Seconds. The re ference range was not u sed to interpret this result as normal/abnor mal. INR (test code = 6301-6) Nor mal INR <1.1; Warfarin Therap eutic range 2.0 to 3. 0 or 2.5 to 3.5, dep ending upon the indica tions. Lab Interpretation (test Normal code = 35206-7) [facility] without Diff - Code [id number] 03:04:23 Test Item Value Reference Range Interpretation Comments WBC (test code = See_Comment [Automated message] The 6690-2) system which ge nerated this result tra nsmitted reference range : 4.30 - 11.10 10*3/?L. The reference range was not used to interpr et this result as normal/abnormal . RBC (test code = See_Comment [Automated message] The 789-8) system which ge nerated this result tra nsmitted reference range : 3.93 - 5.25 10*6/?L. T he reference range was not used to interpr et this result as normal/abnormal . HGB (test code = 13.9 g/dL 11.6-15.0 718-7) HCT (test code = 40.6 % 35.7-45.2 4544-3) MCH (test code = 30.2 pg 25.9-32.8 785-6) MCV (test code = 88.1 fL 80.6-95.5 787-2) MCHC (test code = 34.2 g/dL 31.6-35.1 786-4) PLT (test code = See_Comment [Automated message] The 777-3) system which ge nerated this result tra nsmitted reference range : 166 - 358 10*3/?L. Th e reference range was not used to interpr et this result as normal/abnormal . MPV (test code = 10.6 fL 9.5-12.9 24472-8) RDW-CV (test code = 12.4 % 12.0-15.5 788-0) RDW-SD (test code = 39.4 fL 39.0-49.9 58634-8) NRBC x10^3 (test <0.01 See_Comment [Automated message] The code = 5093796959) [facility] generated this result tra nsmitted reference range : 10*3/?L. The reference r ernst was not used to int erpret this result as normal/abnormal . NRBC/100 WBC (test See_Comment [Automat ed message] The code = 7528919326) system wh ich generated this result tra nsmitted reference range : 0.0 - 10.0 /100 WBCs. The reference range was not used to interpr et this result as normal/abnormal . IPF % (test code = 7522782567) [facility] GLUCOSE (AUTOMATED)2020-09-08 02:42:06 Test Item Value Reference Range Interpretation Comments POCT GLU (test code = 0942013665) 139 mg/dL 70-110 H Lab Interpretation (test code = Abnormal 84074-2) [facility] GLUCOSE (AUTOMATED)2020-05-08 15:40:00 Test Item Value Reference Range Interpretation Comments POCT GLU (test code = 1002940719) 290 mg/dL 70-110 H Lab Interpretation (test code = Abnormal 11178-2) [facility] GLUCOSE (AUTOMATED)2020-05-08 03:01:00 Test Item Value Reference Range Interpretation Comments POCT GLU (test code = 0569328828) 118 mg/dL 70-110 H Lab Interpretation (test code = Abnormal 66640-8) [facility] VENOGRAM HEAD W [id number] 01:58:40 Patent dural sinuses. EXAMINATION: MR VENOGRAM HEAD W CONTRAST HISTORY: Recurrent slurred speech and vertigo COMPARISON: None. TECHNIQUE: Time of flight MR venogram was performed of the majorintracranial venous sinuses with 3D reconstructions. FINDINGS: Superior sagittal sinus, straight sinus, bilateral transverse and sigmoidsinuses are grossly patent. Hypoplastic left transverse and sigmoidsinuses.[facility], Radiant Results Inft User - 05/07/2020 7:59 PM CSTEXAMINATION: MR VENOGRAM HEAD W CONTRASTHISTORY: Recurrent slurred speech and vertigo COMPARISON: None.TECHNIQUE: Time of flight MR venogram was performed of the majorintracranial venous sinuses with 3D reconstructions.FINDINGS:Superior sagittal sinus, straight sinus, bilateral transverse and sigmoidsinuses are grossly patent. Hypoplastic left transverse and sigmoidsinuses. IMPRESSIONPatent dural sinuses.[facility] STROKE BRAIN WO CONTRAST 2020-05-08 01:52:53 No acute intracranial abnormality. EXAMINATION: MR STROKE BRAIN WO CONTRAST HISTORY: Recurrent slurred speech and vertigo S/SX, Dx: Recurrent slurredspeech and vertigo COMPARISON: ?05/05/[address] TECHNIQUE: Multiplanar and multisequence MRI imaging of the brain wasobtained without contrast. FINDINGS: There are foci of increased T2/FLAIR signal in the white matter which arenonspecific but likely sequelae of chronic ischemia, mild in extent.No intracranial hemorrhage or mass. The ventricles, sulci and cisterns are normal in size and symmetric. No acute infarct. The calvarium is normal. ?The orbitsare unremarkable. The paranasalsinuses are essentially clear. [facility], Radiant Results Inft User - 05/07/2020 7:57 PM CSTEXAMINATION: MR STROKE BRAIN WO CONTRASTHISTORY: Recurrent slurred speech and vertigo S/SX, Dx: Recurrent slurredspeech and vertigoCOMPARISON: 05/05/[address] TECHNIQUE: Multiplanar and multisequence MRI imaging of the brain wasobtained without contrast.FINDINGS:There are foci of increased T2/FLAIR signal in the white matter which arenonspecific but likely sequelae of chronic ischemia, mild in extent.No intracranial hemorrhage or mass. The ventricles, sulci and cisterns are normal in size and symmetric. No acute infarct. The calvarium is normal. The orbits are unremarkable. The paranasalsinuses are essentially clear. IMPRESSIONNo acute intracranial abnormality.[facility] LAB ONLY COVID [id number] 00:13:00COVID DMT InterpretationInterpretation/Recommendations: Molecular NAAT Tests for Active Infection with the SARS-CoV-2 Virus: This patient has tested negative on two occasions for the SARS-CoV-2 virus that causes COVID-19 illness. This most likely indicates that the patient does not have an active infection with the SARS-CoV-2 virus, especially if these tests coincide with the patient's current presentation. However, infection is not completely ruled out as the false negative rate for molecular NAAT testing using a nasopharyngeal sample can be up to 30%, mostly dependent on the timing of sample collection in relation to illness onset and any deficiencies in sampling techniques. If the patient contin ues to have persistent or worsening symptoms concerning for COVID-19 illness, a repeat NAAT test (PCR, Rapid ID Now, etc.) should be performed, at which time the SARS-CoV-2 virus - if present - may have reached a detectable viral load (usually peaking by the end of the first week of symptoms). Tests for IgM and/or IgG Antibodies to SARS-CoV-2 Virus: Testing for IgM and IgG antibodies 1-3 weeks after illness onset will indicate whether the patient has produced antibodies to the virus. At this time, it is not known if the production of antibodies - specifically IgG antibodies - indicates whether the patient is immune to future infections with the SARS-CoV-2 virus. Interpretation Result Comments: These interpretation comments are based upon aggregate COVID-19 test results pooled from [facility]. They apply to the following tests offered at [facility] and assume the acceptable specimen type(s) were used: A. Tests for the Identification of SARS-CoV-2 RNA (Molecular NAAT Tests): ?- SARS-CoV-2 PCR assays including 265 Network Aptima, 265 Network Fusion, Nicole RealTime, and [employer] Xpert Xpress. ?- SARS-CoV-2 Rapid ID NOW by the ID NOWassay. ? B. Tests for the Identification of SARS-CoV-2 Antibodies: ?- Chemiluminescent immunoassays including Access SARS-CoV-2 IgM (DXI 600), [employer]S Nity-CTCV-NqQ-2 IgG (Vitros 5600 and Vitros 3600), and Nicole SARS-CoV-2 IgG (POLICY ANALYST I System). These interpretations are autopopulated into [facility] based on computerized algorithms matching an interpretation code to the patient's set of test results, and a clinical pathologist evaluates the comments for accuracy. However, these comments do not consider testing a patient may have had outside of the [facility] system. If results for COVID-19 infection continue to be negative in the context of a suspected viral respiratory illness, it is possible the patient may have an infection with another respiratory virus. Influenza testing and a respiratory pathogen panel if clinically indicated may be beneficial in this setting. If there continues to be a highdegree of clinical suspicion for COVID-19 illness despite multiple negative tests on nasopharyngeal specimens, then it may be necessary to test the patient for the SARS-CoV-2 virus using lower respiratory tract samples (such as sputum, bronchoalveolar lavage fluid (BAL), tracheal aspirate, etc.). ? [facility] LABORATORY SERVICESCOVID RiunuurRSZG-OkZ-[id number] NAAT (no units) ? ? Date ? Value ? 09/18/2019 ? Not Detected ? SARS-CoV-2 Rapid ID NOW (no units) ? ? Date ? Value ? 05/05/2020 ? Not Detected ? [facility] LABORATORY SERVICESUnH[facility]POCT GLUCOSE (AUTOMATED)2020-05-07 22:19:00 Test Item Value Reference Range Interpretation Comments POCT GLU (test code = 2752163299) 140 mg/dL 70-110 H Lab Interpretation (test code = Abnormal 24458-7) [facility]woodXR [id number] 20:59:37 Nonobstructive bowel gas pattern. Preliminary Report Dictated by Resident: Shawna Arboleda I, Sanjana Vaca MD., have reviewed this study and agree with theabove report.EXAM: XR KUB HISTORY: 80 years-old Female presenting with diarrhea COMPARISON: No prior studies available for comparison. TECHNIQUE: Frontal views of the abdomen and pelvis were obtained. FINDINGS: Limited study due to motion. The visualized bowel gas pattern is nonspecific and does not suggestobstruction. Surgical clips are seen projecting over the right upper quadrant.Phleboliths are seen in the mid abdomen and a 0.7 cm calcificationprojecting to the right of L5 may represent a phlebolith or small bowelcontents. No abnormalcalcifications or radiopaque stones are identified. No acute bony abnormalities are noted. Degenerative changes affect thelower lumbar spine. [facility], Radiant Results Inft User - 05/07/2020 3:00 PM CSTEXAM: XR KUBHISTORY: 80 years-old Female presenting with diarrhea COMPARISON: No prior studies availablefor comparison. TECHNIQUE: Frontal views of the abdomen and pelvis were obtained.FINDINGS:Limited study due to motion.The visualized bowel gas pattern is nonspecific and does not suggestobstruction. Surgical clips are seen projecting over the right upper quadrant.Phleboliths are seen in the mid abdomen and a 0.7 cm calcificationprojecting to the right of L5 may represent a phlebolith or small bowelcontents. No abnormal calcifications or radiopaque stones are identified. No acute bony abnormalities are noted. Degenerative changes affect thelower lumbar spine.IMPRESSIONNonobstructive bowel gas pattern.Preliminary Report Dictated by Resident: Shawna Martin, Sanjana Vaca MD., have reviewed this study and agree with theabove report.[facility]woodXR BONE [id number] 18:59:51 1. ?No radiographic evidence of osseous metastatic disease. RL: 1105 HISTORY: ?r/u metals COMPARISON: ?None FINDINGS: 16 view skeletal survey. No lytic or sclerotic lesions identified. There is no destructive bonyprocess. [facility], Radiant Results Inft User - 05/07/2020 1:00 PM CSTHISTORY: r/u metals COMPARISON: NoneFINDINGS:16 view skeletal survey.No lytic or sclerotic lesions identified. There is no destructive bonyprocess.IMPRESSION1. No radiographic evidence of osseous metastatic disease.RL: 1105Electronically signed by Devan Plummer MD at107/08/2019 12:59 PM [facility]woodPO[facility]SE (AUTOMATED)2020-05-07 18:59:00 Test Item Value Reference Range Interpretation Comments POCT GLU (test code = 8976616703) 96 mg/dL 70-110 Lab Interpretation (test code = Normal 55699-3) [facility] GLUCOSE (AUTOMATED)2020-05-07 14:20:00 Test Item Value Reference Range Interpretation Comments POCT GLU (test code = 8405518010) 122 mg/dL 70-110 H Lab Interpretation (test code = Abnormal 20930-0) [facility]woodBasic Metabolic Panel (Na, K, Cl, CO2, Glucose, BUN, Creatinine, Ca)2020-05-07 12:08:00 Test Item Value Reference Range Interpretation Comments NA (test code = 137 mmol/L 135-145 6900735997) K (test code = 4.4 mmol/L 3.5-5 3714765013) CL (test code = 106 mmol/L 98-108 1204263535) CO2 TOTAL (test code = 27 mmol/L 23-31 2282938522) AGAP (test code = 2-16 7568675272) BUN (test code = 22 mg/dL 7-23 5499475900) GLUCOSE (test code = 108 mg/dL 70-110 0722938571) CREATININE (test code 0.67 mg/dL 0.5-1.04 = 2159966312) CALCIUM (test code = 8.7 mg/dL 8.6-10.6 8808598860) eGFR Calculation mL/min/1.73m2 (Non-) (test code = 0132508551) eGFR Calculation mL/min/1.73m2 () (test code = 5262435594) MELO (test code = MELO) Association of Glomerular Filtration Rate (GFR) and Staging of Kidney Disease* + -+ + ---+| GFR (mL/min/1.73 m2) ?| With Kidney Damage ?| ?Without Kidney Damage+ -------+ ------+ ---------+| ?>90 ?| ?Stage one ?| ? Normal ?+ --+ -+ ----+| ?60-89 ?| ?Stage two ?| ? Decreased GFR ? + -+ + ---+| ?30-59 ?| ?Stage three ?| ? Stage three ? + -+ + ---+| ?15-29 ?| ?Stage four ? | ? Stage four ?+ --+ -+ ----+| ?<15 (or dialysis) ? ?| ?Stage five ? | ? Stage five ?+ --+ -+ ----+ *Each stage assumes the associated GFR level has been in effect for at least three months. ?Stages 1 to 5, with or without kidney disease, indicate chronic kidney disease. Notes: Determination of stages one and two (with eGFR >59mL/min/1.73 m2) requires estimation of kidney damage for at least three months as defined by structural or functional abnormalities of the kidney, manifested by either:Pathological abnormalities or Markers of kidney damage (including abnormalities in the composition of the blood or urine or abnormalities in imaging tests). [facility], [id number] 12:08:00 Test Item Value Reference Range Interpretation Comments MAGNESIUM (test code = 5261855306) 2.2 mg/dL 1.7-2.4 Lab Interpretation (test code = Normal 33215-5) [facility] with [id number] 11:43:00 Test Item Value Reference Range Interpretation Comments WBC (test code = See_Comment [Automated message] 6690-2) The system [employer] generated this result transmitted ref erence range: 4.30 - 1 1.10 10*3/?L. The re ference range was not u sed to interpret this result as normal/abnor mal. RBC (test code = See_Comment [Automated message] 789-8) The system [employer] generated this result transmitted ref erence range: 3.93 - 5 .25 10*6/?L. The re ference range was not u sed to interpret this result as normal/abnor mal. HGB (test code = 13.2 g/dL 11.6-15 718-7) HCT (test code = 39.8 % 35.7-45.2 4544-3) MCV (test code = 89.8 fL 80.6-95.5 787-2) MCH (test code = 29.8 pg 25.9-32.8 785-6) MCHC (test code = 33.2 g/dL 31.6-35.1 786-4) RDW-SD (test code 41.3 fL 39-49.9 = 27655-6) RDW-CV (test code 12.5 % 12-15.5 = 788-0) PLT (test code = See_Comment [Automated message] 777-3) The system [employer] generated this result transmitted ref erence range: 166 - 35 8 10*3/?L. The re ference range was not u sed to interpret this result as normal/abnor mal. MPV (test code = 10.6 fL 9.5-12.9 75422-8) NRBC/100 WBC (test See_Comment [Automat ed message] code = 4118827348) The syste [employer] which generated this result transmitted ref erence range: 0.0 - 10 .0 /100 WBCs. The refer ence range was not u sed to interpret this result as normal/abnor mal. NRBC x10^3 (test <0.01 See_Comment [Automated message] code = 4727320204) The syste m which generated this result transmitted ref erence range: 10*3/?L. The reference range was not used to interpr et this result as normal/abnormal . GRAN MAT (NEUT) % 66.7 % (test code = 770-8) IMM GRAN % (test 0.30 % code = 0498566271) LYMPH % (test code 24.7 % = 736-9) MONO % (test code 6.3 % = 5905-5) EOS % (test code = 1.3 % 713-8) BASO % (test code 0.7 % = 706-2) GRAN MAT 5.09 10*3/uL 1.88-7.09 x10^3(ANC) (test code = 1480960366) IMM GRAN x10^3 <0.03 0-0.06 (test code = 6869374726) LYMPH x10^3 (test 1.88 10*3/uL 1.32-3.29 code = 731-0) MONO x10^3 (test 0.48 10*3/uL 0.33-0.92 code = 742-7) EOS x10^3 (test 0.10 10*3/uL 0.03-0.39 code = 711-2) BASO x10^3 (test 0.05 10*3/uL 0.01-0.07 code = 704-7) [facility] GLUCOSE (AUTOMATED)2020-05-07 04:26:00 Test Item Value Reference Range Interpretation Comments POCT GLU (test code = 1371007284) 138 mg/dL 70-110 H Lab Interpretation (test code = Abnormal 39044-9) [facility] GLUCOSE (AUTOMATED)2020-05-07 00:30:00 Test Item Value Reference Range Interpretation Comments POCT GLU (test code = 0605353621) 103 mg/dL 70-110 Lab Interpretation (test code = Normal 88921-8) [facility]woodC-REACTIVE [id number] 17:48:00 Test Item Value Reference Range Interpretation Comments CRP (test code = 1694071134) 0.2 mg/dL <0.8 Lab Interpretation (test code = Normal 76646-1) [facility] [id number] 16:23:00 Test Item Value Reference Range Interpretation Comments POCT Creatinine (test code = 0.6 mg/dL 0.5-1.1 5988689927) Lab Interpretation (test code = Normal 60224-3) [facility] KingwoodSEDIMENTATION [id number] 13:14:00 Test Item Value Reference Range Interpretation Comments ESR (test code = See_Comment [Automated message] 2478987017) The system [employer] generated this result transmitted ref erence range: 0 - 20 m m/HR. The reference r ernst was not used to interpret this result as normal/abnor mal. Lab Interpretation (test Normal code = 23090-2) [facility] Metabolic Panel (Na, K, Cl, CO2, Glucose, BUN, Creatinine, Ca)2020-05-06 10:54:00 Test Item Value Reference Range Interpretation Comments NA (test code = 140 mmol/L 135-145 7731747342) K (test code = 4.0 mmol/L 3.5-5 2540443194) CL (test code = 106 mmol/L 98-108 1195952766) CO2 TOTAL (test code = 27 mmol/L 23-31 5937879376) AGAP (test code = 2-16 1531638242) BUN (test code = 11 mg/dL 7-23 5725897305) GLUCOSE (test code = 112 mg/dL 70-110 H 7459676695) CREATININE (test code = 0.58 mg/dL 0.5-1.04 5446370868) CALCIUM (test code = 8.9 mg/dL 8.6-10.6 7367771178) eGFR Calculation mL/min/1.73m2 (Non-) (test code = 6327544578) eGFR Calculation mL/min/1.73m2 () (test code = 5945265647) MELO (test code = MELO) Association of Glomerular Filtration Rate (GFR) and Staging of Kidney Disease* + --+ --+ ------+| GFR (mL/min/1.73 m2) ?| With Kidney Damage ?| ?Without Kidney Damage+ --------+ --------+ +| ?>90 ?| ?Stage one ?| ? Normal ?+ ---+ ---+ -------+| ?60-89 ?| ?Stage two ?| ? Decreased GFR ? + --+ --+ ------+| ?30-59 ?| ?Stage three ?| ? Stage three ? + --+ --+ ------+| ?15-29 ?| ?Stage four ? | ? Stage four ?+ ---+ ---+ -------+| ?<15 (or dialysis) ? ?| ?Stage five ? | ? Stage five ?+ ---+ ---+ -------+ *Each stage assumes the associated GFR level has been in effect for at least three months. ?Stages 1 to 5, with or without kidney disease, indicate chronic kidney disease. Notes: Determination of stages one and two (with eGFR >59mL/min/1.73 m2) requires estimation of kidney damage for at least three months as defined by structural or functional abnormalities of the kidney, manifested by either:Pathological abnormalities or Markers of kidney damage (including abnormalities in the composition of the blood or urine or abnormalities in imaging tests). Lab Interpretation Abnormal (test code = 45373-5) [facility]wood[facility], [id number] 10:54:00 Test Item Value Reference Range Interpretation Comments MAGNESIUM (test code = 1017738641) 2.2 mg/dL 1.7-2.4 Lab Interpretation (test code = Normal 54257-2) [facility]woodTHYROID STIMULATING [id number] 10:33:00 Test Item Value Reference Range Interpretation Comments TSH (test code = See_Comment Biotin has been [id number]) reported to cau se a negative bias, interpret resul ts relative to radhames mccann's use of biotin. [Automated mess age] The system whic h generated this result transmitted ref erence range: 0.45 - 4 .70 mIU/L. The refe rence range was not u sed to interpret this result as normal/abnor mal. Lab Interpretation (test Normal code = 06479-6) [facility]woodCB with [id number] 10:21:00 Test Item Value Reference Range Interpretation Comments WBC (test code = See_Comment [Automated 0890-2) message] The sy stem which generated this result transmitted reference range : 4.30 - 11.10 10*3/?L. The reference range was not used to interpret this result as normal/abnormal . RBC (test code = See_Comment [Automated 789-8) message] The sy stem which generated this result transmitted reference range : 3.93 - 5.25 10*6/?L. The reference range was not used to interpret this result as normal/abnormal . HGB (test code = 14.1 g/dL 11.6-15 718-7) HCT (test code = 41.1 % 35.7-45.2 4544-3) MCV (test code = 89.0 fL 80.6-95.5 787-2) MCH (test code = 30.5 pg 25.9-32.8 785-6) MCHC (test code = 34.3 g/dL 31.6-35.1 786-4) RDW-SD (test code = 40.5 fL 39-49.9 22522-2) RDW-CV (test code = 12.4 % 12-15.5 788-0) PLT (test code = See_Comment L [Automated 777-3) message] The sy stem which generated this result transmitted reference range : 166 - 358 10*3/ ?L. The reference r ernst was not used to interpret this result as normal/abnormal . MPV (test code = 10.6 fL 9.5-12.9 77482-0) NRBC/100 WBC (test See_Comment [Automat ed code = 9330208626) message] The system which generated this result transmitted reference range : 0.0 - 10.0 /100 WBCs. The refer ence range was not u sed to interpret th is result as normal/abnormal . NRBC x10^3 (test code <0.01 See_Comment [Auto mated = 6244328405) message] The s ystem which generated this result transmitted reference range : 10*3/?L. The reference range was not used to interpret this result as normal/abnormal . GRAN MAT (NEUT) % 53.6 % (test code = 770-8) IMM GRAN % (test code 0.30 % = 9308422172) LYMPH % (test code = 35.3 % 736-9) MONO % (test code = 8.6 % 5905-5) EOS % (test code = 1.6 % 713-8) BASO % (test code = 0.6 % 706-2) GRAN MAT x10^3(ANC) 3.38 10*3/uL 1.88-7.09 (test code = 0809232372) IMM GRAN x10^3 (test <0.03 0-0.06 code = 0096970575) LYMPH x10^3 (test code 2.23 10*3/uL 1.32-3.29 = 731-0) MONO x10^3 (test code 0.54 10*3/uL 0.33-0.92 = 742-7) EOS x10^3 (test code = 0.10 10*3/uL 0.03-0.39 711-2) BASO x10^3 (test code 0.04 10*3/uL 0.01-0.07 = 704-7) Lab Interpretation Abnormal (test code = 86294-6) [facility]wood[facility]YCOSYL[facility] HEMOGLOBIN (A1C)2020-05-06 10:10:00 Test Item Value Reference Range Interpretation Comments HGB A1C (test code = 5.9 % 4-6 4548-4) MELO (test code = MELO) %A1C (NGSP) Interpretation (ADA)4.8-5.6 ? ? Normal or (Non-Diabetic Range)5.7-6.4 ? ? Increased Risk (Pre-Diabetic)>6.5 ?Diabetes Indicated Lab Interpretation Normal (test code = 73919-2) [facility] LIPID [facility] (05327)(TOTAL CHOLESTEROL, TRIGLYCERIDES, HDL)2020-05-06 09:59:00 Test Item Value Reference Range Interpretation Comments CHOL (test code = 250 mg/dL 120-200 H 0982174721) HDL (test code = 49 mg/dL >50 L 3501622139) HDLC RATIO (test code = See_Comment H [Au tomated message] 3451095618) The system [employer] generated this result transmit raul reference range : <=4.5. The refe rence range was not u sed to interpret th is result as normal/abnormal . TRIG (test code = 98 mg/dL 30-170 0992639272) LDL CHOL (test code = 181 mg/dL See_Comment H [Auto mated message] 53366-8) The system [employer] generated this result transmit raul reference range : <=160. The refe rence range was not u sed to interpret th is result as normal/abnormal . VLDL (test code = 20 mg/dL 5-60 4643160091) Lab Interpretation (test Abnormal code = 41521-5) [facility]woodXR STROKE CHEST 1 [id number] 04:35:13 Blunting of the left costophrenic sulcus may represent a small pleuraleffusion or atelectasis. Preliminary Report Dictated by Resident: Naomi May MD., have reviewed this study and agree with theabove report.XR STROKE CHEST 1 VW HISTORY: Weakness, Slurring of Speech COMPARISON: None TECHNIQUE: AP radiograph of the chest was performed. FINDINGS: Blunting of the left costophrenic sulcus may represent a small pleuraleffusion, atelectasis and/or consolidations. Right basilar subsegmentalatelectasis. No right pleural effusion or pneumothorax. The heart is at the upper limits of normal in size. Calcifications of theaortic knob. No acute osseous abnormality. RUQ surgical clips are noted. [facility], Radiant Results Inft User - 05/05/2020 10:36 PM CSTXR STROKE CHEST 1 VWHISTORY: Weakness, Slurring of Speech COMPARISON: NoneTECHNIQUE: AP radiograph of the chest was performed.FINDINGS:Blunting of the left costophrenic sulcus may represent a small pleuraleffusion, atelectasis and/or consolidations. Right basilar subsegmentalatelectasis. No right pleural effusion or pneumothorax.The heart is at the upper limits of normal in size. Calcifications of theaortic knob.No acute osseous abnormality. RUQ surgical clips are noted.IMPRESSIONBlunting of the left costophrenic sulcus may represent a small pleuraleffusion or atelectasis. Preliminary Report Dictated by Resident: Naomi Girard MD., have reviewed this study and agree with theabove report.[facility]wood[facility] WO CONTRAST 2020-05-06 04:15:14 No acute intracranial Unremarkable CTs head and neck angiograms. No high-grade stenosis of theoccipital region.EXAM: CT STROKE HEAD WO CONTRAST, CT STROKE ANGIOGRAM HEAD, CT STROKEANGIOGRAM NECK HISTORY: Stroke suspected, focal neuro deficit, < 6 hrs TECHNIQUE: CT of the head was performed withoutintravenous contrast.Sagittal and coronal reformats were generated.. CTs head and neckangiograms were performed following intravenous administration. [place] coronal reformats were generated COMPARISON: CT head dated. FINDINGS: CT HEAD The ventricles and sulci are normal in caliber and configuration. Nohydrocephalus, midline shift or pathological extra-axial fluid collectionis present. The basal cisterns are unremarkable. There is no acute intracranial hemorrhage or significant mass effect. Noparenchymal attenuation abnormality. The waddell-white matter differentiationis preserved. The mastoid air cells and paranasal air sinuses are clear. The calvariumand central skull base are unremarkable. CT NECK ANGIOGRAM The left vertebral artery takes of directly from the arch. Mildatheroscleroticcalcifications of the arch without affecting the ostiaresults. The innominate and subclavian arteries are patent. Calcified plaque is noted at the left carotid bulb without causingsignificant stenosis.The bilateral common carotid arteries, right carotidbulb and internal carotid arteries are patent without high-grade stenosis. The bilateral vertebral arteries originate from the subclavian arteries andare visualized throughout their entire cervical length. The ostia are freeof stenosis. No high-grade stenosis or dissection identified. Soft tissues of the neck are unremarkable. The visualized lung apices are clear. Mild spondylotic changes of the cervical spine. CT HEAD ANGIOGRAM PICA origin is visualized bilaterally. The basilar artery is normal incaliber and patent. The superior cerebellar arteries are unremarkable.Posterior cerebral arteries are patent. Posterior communicating arteriesare visualized. The distal cervical, petrous, cavernous and supraclinoid ICAs are patent.The anterior and middle cerebral arteries are patent. Small anteriorcommunicating artery is visualized. [facility], Radiant Results Inft User - 05/05/2020 10:16 PM CSTEXAM: CT STROKE HEAD WO CONTRAST, CT STROKE ANGIOGRAM HEAD, CTSTROKEANGIOGRAM NECKHISTORY: Stroke suspected, focal neuro deficit, < 6 hrs TECHNIQUE: CT of the head was performed without intravenous contrast.Sagittal and coronal reformats were generated.. CTs head and neckangiograms were performed following intravenous administration. [place] coronal reformats were generatedCOMPARISON: CT head date.FINDINGS: CT HEADThe ventricles and sulci are normal in caliber and configuration. Nohydrocephalus, midline shift or pathological extra-axial fluid collectionis present. The basal cisterns are unremarkable.There is no acute intracranial hemorrhage orsignificant mass effect. Noparenchymal attenuation abnormality. The waddell-white matter differentiationis preserved.The mastoid air cells and paranasal air sinuses are clear. The calvariumand central skull base are unremarkable.CT NECK ANGIOGRAMThe left vertebral artery takes of directly from the arch. Mildatherosclerotic calcifications of the arch without affecting the ostiaresults.The innominate and subclavian arteries are patent.Calcified plaque is noted at the left carotid bulb without causingsignificant stenosis. The bilateral common carotid arteries, right carotidbulb and internal carotid arteri es are patent without high-grade stenosis.The bilateral vertebral arteries originate from the subclavian arteries andare visualized throughout their entire cervical length. The ostia are freeof stenosis. No high-grade stenosis or dissection identified.Soft tissues of the neck are unremarkable.The visualized lung apices are clear.Mild spondylotic changes of the cervical spine.CT HEAD ANGIOGRAMPICA origin is visualized bilaterally. The basilar artery is normal incaliber and patent. The superior cerebellar arteries are unremarkable.Posterior cerebral arteries are patent. Posterior communicating arteriesare visualized.The distal cervical, petrous, cavernous and supraclinoid ICAs are patent.The anterior and middle cerebral arteries are patent. Small anteriorcommunicating artery is visualized.IMPRESSIONNo acute intracranialUnremarkable CTs head and neck angiograms. No high-grade stenosis of theoccipital region.[facility] 2020-05-06 04:15:14 No acute intracranial Unremarkable CTs head and neck angiograms. No high-grade stenosis of theoccipital region.EXAM: CT STROKE HEAD WO CONTRAST, CT STROKE ANGIOGRAM HEAD, CT STROKEANGIOGRAM NECK HISTORY: Stroke suspected, focal neuro deficit, < 6 hrs TECHNIQUE: CT of the head was performed withoutintravenous contrast.Sagittal and coronal reformats were generated.. CTs head and neckangiograms were performed following intravenous administration. [place] coronal reformats were generated COMPARISON: CT head dated. FINDINGS: CT HEAD The ventricles and sulci are normal in caliber and configuration. Nohydrocephalus, midline shift or pathological extra-axial fluid collectionis present. The basal cisterns are unremarkable. There is no acute intracranial hemorrhage or significant mass effect. Noparenchymal attenuation abnormality. The waddell-white matter differentiationis preserved. The mastoid air cells and paranasal air sinuses are clear. The calvariumand central skull base are unremarkable. CT NECK ANGIOGRAM The left vertebral artery takes of directly from the arch. Mildatheroscleroticcalcifications of the arch without affecting the ostiaresults. The innominate and subclavian arteries are patent. Calcified plaque is noted at the left carotid bulb without causingsignificant stenosis.The bilateral common carotid arteries, right carotidbulb and internal carotid arteries are patent without high-grade stenosis. The bilateral vertebral arteries originate from the subclavian arteries andare visualized throughout their entire cervical length. The ostia are freeof stenosis. No high-grade stenosis or dissection identified. Soft tissues of the neck are unremarkable. The visualized lung apices are clear. Mild spondylotic changes of the cervical spine. CT HEAD ANGIOGRAM PICA origin is visualized bilaterally. The basilar artery is normal incaliber and patent. The superior cerebellar arteries are unremarkable.Posterior cerebral arteries are patent. Posterior communicating arteriesare visualized. The distal cervical, petrous, cavernous and supraclinoid ICAs are patent.The anterior and middle cerebral arteries are patent. Small anteriorcommunicating artery is visualized. [facility], Radiant Results Inft User - 05/05/2020 10:16 PM CSTEXAM: CT STROKE HEAD WO CONTRAST, CT STROKE ANGIOGRAM HEAD, CTSTROKEANGIOGRAM NECKHISTORY: Stroke suspected, focal neuro deficit, < 6 hrs TECHNIQUE: CT of the head was performed without intravenous contrast.Sagittal and coronal reformats were generated.. CTs head and neckangiograms were performed following intravenous administration. [place] coronal reformats were generatedCOMPARISON: CT head dated.FINDINGS: CT HEADThe ventricles and sulci are normal in caliber and configuration. Nohydrocephalus, midline shift or pathological extra-axial fluid collectionis present. The basal cisterns are unremarkable.There is no acute intracranial hemorrhage orsignificant mass effect. Noparenchymal attenuation abnormality. The wdadell-white matter differentiationis preserved.The mastoid air cells and paranasal air sinuses are clear. The calvariumand central skull base are unremarkable.CT NECK ANGIOGRAMThe left vertebral artery takes of directly from the arch. Mildatherosclerotic calcifications of the arch without affecting the ostiaresults.The innominate and subclavian arteries are patent.Calcified plaque is noted at the left carotid bulb without causingsignificant stenosis. The bilateral common carotid arteries, right carotidbulb and internal carotid arteri es are patent without high-grade stenosis.The bilateral vertebral arteries originate from the subclavian arteries andare visualized throughout their entire cervical length. The ostia are freeof stenosis. No high-grade stenosis or dissection identified.Soft tissues of the neck are unremarkable.The visualized lung apices are clear.Mild spondylotic changes of the cervical spine.CT HEAD ANGIOGRAMPICA origin is visualized bilaterally. The basilar artery is normal incaliber and patent. The superior cerebellar arteries are unremarkable.Posterior cerebral arteries are patent. Posterior communicating arteriesare visualized.The distal cervical, petrous, cavernous and supraclinoid ICAs are patent.The anterior and middle cerebral arteries are patent. Small anteriorcommunicating artery is visualized.IMPRESSIONNo acute intracranialUnremarkable CTs head and neck angiograms. No high-grade stenosis of theoccipital region.[facility] 2020-05-06 04:15:14 No acute intracranial Unremarkable CTs head and neck angiograms. No high-grade stenosis of theoccipital region.EXAM: CT STROKE HEAD WO CONTRAST, CT STROKE ANGIOGRAM HEAD, CT STROKEANGIOGRAM NECK HISTORY: Stroke suspected, focal neuro deficit, < 6 hrs TECHNIQUE: CT of the head was performed withoutintravenous contrast.Sagittal and coronal reformats were generated.. CTs head and neckangiograms were performed following intravenous administration. [place] coronal reformats were generated COMPARISON: CT head dated. FINDINGS: CT HEAD The ventricles and sulci are normal in caliber and configuration. Nohydrocephalus, midline shift or pathological extra-axial fluid collectionis present. The basal cisterns are unremarkable. There is no acute intracranial hemorrhage or significant mass effect. Noparenchymal attenuation abnormality. The wdadell-white matter differentiationis preserved. The mastoid air cells and paranasal air sinuses are clear. The calvariumand central skull base are unremarkable. CT NECK ANGIOGRAM The left vertebral artery takes of directly from the arch. Mildatheroscleroticcalcifications of the arch without affecting the ostiaresults. The innominate and subclavian arteries are patent. Calcified plaque is noted at the left carotid bulb without causingsignificant stenosis.The bilateral common carotid arteries, right carotidbulb and internal carotid arteries are patent without high-grade stenosis. The bilateral vertebral arteries originate from the subclavian arteries andare visualized throughout their entire cervical length. The ostia are freeof stenosis. No high-grade stenosis or dissection identified. Soft tissues of the neck are unremarkable. The visualized lung apices are clear. Mild spondylotic changes of the cervical spine. CT HEAD ANGIOGRAM PICA origin is visualized bilaterally. The basilar artery is normal incaliber and patent. The superior cerebellar arteries are unremarkable.Posterior cerebral arteries are patent. Posterior communicating arteriesare visualized. The distal cervical, petrous, cavernous and supraclinoid ICAs are patent.The anterior and middle cerebral arteries are patent. Small anteriorcommunicating artery is visualized. [facility], Radiant Results Inft User - 05/05/2020 10:16 PM CSTEXAM: CT STROKE HEAD WO CONTRAST, CT STROKE ANGIOGRAM HEAD, CTSTROKEANGIOGRAM NECKHISTORY: Stroke suspected, focal neuro deficit, < 6 hrs TECHNIQUE: CT of the head was performed without intravenous contrast.Sagittal and coronal reformats were generated.. CTs head and neckangiograms were performed following intravenous administration. [place] coronal reformats were generatedCOMPARISON: CT head dated.FINDINGS: CT HEADThe ventricles and sulci are normal in caliber and configuration. Nohydrocephalus, midline shift or pathological extra-axial fluid collectionis present. The basal cisterns are unremarkable.There is no acute intracranial hemorrhage orsignificant mass effect. Noparenchymal attenuation abnormality. The waddell-white matter differentiationis preserved.The mastoid air cells and paranasal air sinuses are clear. The calvariumand central skull base are unremarkable.CT NECK ANGIOGRAMThe left vertebral artery takes of directly from the arch. Mildatherosclerotic calcifications of the arch without affecting the ostiaresults.The innominate and subclavian arteries are patent.Calcified plaque is noted at the left carotid bulb without causingsignificant stenosis. The bilateral common carotid arteries, right carotidbulb and internal carotid arteri es are patent without high-grade stenosis.The bilateral vertebral arteries originate from the subclavian arteries andare visualized throughout their entire cervical length. The ostia are freeof stenosis. No high-grade stenosis or dissection identified.Soft tissues of the neck are unremarkable.The visualized lung apices are clear.Mild spondylotic changes of the cervical spine.CT HEAD ANGIOGRAMPICA origin is visualized bilaterally. The basilar artery is normal incaliber and patent. The superior cerebellar arteries are unremarkable.Posterior cerebral arteries are patent. Posterior communicating arteriesare visualized.The distal cervical, petrous, cavernous and supraclinoid ICAs are patent.The anterior and middle cerebral arteries are patent. Small anteriorcommunicating artery is visualized.IMPRESSIONNo acute intracranialUnremarkable CTs head and neck angiograms. No high-grade stenosis of theoccipital region.[facility]wood[facility] - Code Stroke 2020-05-06 03:38:00 Test Item Value Reference Range Interpretation Comments TROPONIN I (test <0.012 See_Comment [Automated code = [id number]) message] The system which generated this result transmitted reference range : <=0.034 ng/mL. The reference range was not used to interpr et this result as normal/abnormal . MELO (test code = Equal or Less than MELO) 0.034 ng/ml---Normal ?Note: Cardiac troponin begins to rise 3-4 hours after the onset of ischemia. Repeat in 4-6 hours if the sample was drawn within 3-4 hours of the onset of the symptom and found normal. Between 0.035 and 0.120 ng/mL--- Borderline. Questionable myocardial injury or necrosis ? ?Note: Serial measurement may be necessary to confirm or exclude the diagnosis of myocardial injury or necrosis; Clinical correlation (symptoms, EKGs, imaging studies, and others) required; Repeat in 4-6 hours if clinically indicated. ? Equal or Higher than 0.121 ng/mL---Abnormal. Myocardial Injury or Necrosis Likely ? Biotin has been reported to cause a negative bias, interpret results relative to patient's use of biotin. ? Lab Interpretation Normal (test code = 11242-7) [facility]wood[facility] (ID NOW RAPID TESTING)2020-05-06 03:33:00 Test Item Value Reference Range Interpretation Comments SARS-CoV-2 Rapid ID NOW Not Detected Not Detected (test code = 73086-7) MELO (test code = MELO) ID NOW COVID-19 Assay is an isothermal nucleic acid amplification test intended for the qualitative detection of nucleic acid from SARS-CoV-2 viral RNA in nasopharyngeal (TELEVISION INST[employer]ER) specimens. It is used under Emergency Use Authorization (EUA) by FDA. The limit of detection (LOD) of the assay is 125 Genome Equivalents/mL. A positive result is indicative of the presence of SARS-CoV-2 RNA. ?Clinical correlation with patient history and other diagnostic information is necessary to determine patient infection status. A negative (Not Detected) result does not preclude SARS-CoV-2 infection. In patients with clinical symptoms and other tests that are consistent with SARS-CoV-2 infection, negative results should be treated as presumptive negative and a new specimen should be tested with alternative PCR molecular test. Invalid: Please collect a new specimen for repeat patient testing if clinically indicated. Lab Interpretation Normal (test code = 03541-3) [facility] Met[facility] Panel (NA, K, CL, CO2, Glucose, BUN, Creatinine, CA) - Code [id number] 03:26:00 Test Item Value Reference Range Interpretation Comments NA (test code = 137 mmol/L 135-145 1861613761) K (test code = 4.3 mmol/L 3.5-5 8128856706) CL (test code = 101 mmol/L 98-108 2141327034) CO2 TOTAL (test code = 27 mmol/L 23-31 9681887400) AGAP (test code = 2-16 2336788047) BUN (test code = 12 mg/dL 7-23 5008560214) GLUCOSE (test code = 136 mg/dL 70-110 H 6205053923) CREATININE (test code = 0.61 mg/dL 0.5-1.04 1303487127) CALCIUM (test code = 9.8 mg/dL 8.6-10.6 7729655952) eGFR Calculation mL/min/1.73m2 (Non-) (test code = 8597260112) eGFR Calculation mL/min/1.73m2 () (test code = 9635159147) MELO (test code = MELO) Association of Glomerular Filtration Rate (GFR) and Staging of Kidney Disease* + --+ --+ ------+| GFR (mL/min/1.73 m2) ?| With Kidney Damage ?| ?Without Kidney Damage+ --------+ --------+ +| ?>90 ?| ?Stage one ?| ? Normal ?+ ---+ ---+ -------+| ?60-89 ?| ?Stage two ?| ? Decreased GFR ? + --+ --+ ------+| ?30-59 ?| ?Stage three ?| ? Stage three ? + --+ --+ ------+| ?15-29 ?| ?Stage four ? | ? Stage four ?+ ---+ ---+ -------+| ?<15 (or dialysis) ? ?| ?Stage five ? | ? Stage five ?+ ---+ ---+ -------+ *Each stage assumes the associated GFR level has been in effect for at least three months. ?Stages 1 to 5, with or without kidney disease, indicate chronic kidney disease. Notes: Determination of stages one and two (with eGFR >59mL/min/1.73 m2) requires estimation of kidney damage for at least three months as defined by structural or functional abnormalities of the kidney, manifested by either:Pathological abnormalities or Markers of kidney damage (including abnormalities in the composition of the blood or urine or abnormalities in imaging tests). Lab Interpretation Abnormal (test code = 74255-8) [facility] Code [id number] 03:23:00 Test Item Value Reference Range Interpretation Comments APTT Patient (test See_Comment [Automat ed code = 3173-2) message] The system which generated this result transmitted reference range : 23 - 38 Seconds . The reference range was not used to interpr et this result as normal/abnormal . MELO (test code = MELO) The [facility] patient population mean normal value for aPTT is 30 seconds. Lab Interpretation Normal (test code = 86489-3) [facility] / INR - Code [id number] 03:21:00 Test Item Value Reference Range Interpretation Comments PROTIME PATIENT (test See_Comment [Auto mated message] code = 5964-2) The system wh ich generated this result transmitted ref erence range: 12.0 - 1 4.7 Seconds. The re ference range was not u sed to interpret this result as normal/abnor mal. INR (test code = 6301-6) Nor mal INR <1.1; Warfarin Therap eutic range 2.0 to 3. 0 or 2.5 to 3.5, dep ending upon the indica tions. Lab Interpretation (test Normal code = 15338-6) [facility] without Diff - Code [id number] 03:13:00 Test Item Value Reference Range Interpretation Comments WBC (test code = See_Comment [Automated message] The 6690-2) system which nerated this result tra nsmitted reference range : 4.30 - 11.10 10*3/?L. The reference range was not used to interpr et this result as normal/abnormal . RBC (test code = See_Comment [Automated message] The 789-8) system which nerated this result tra nsmitted reference range : 3.93 - 5.25 10*6/?L. T he reference range was not used to interpr et this result as normal/abnormal . HGB (test code = 15.0 g/dL 11.6-15 718-7) HCT (test code = 43.1 % 35.7-45.2 4544-3) MCH (test code = 30.7 pg 25.9-32.8 785-6) MCV (test code = 88.1 fL 80.6-95.5 787-2) MCHC (test code = 34.8 g/dL 31.6-35.1 786-4) PLT (test code = See_Comment [Automated message] The 777-3) system which nerated this result tra nsmitted reference range : 166 - 358 10*3/?L. Th e reference range was not used to interpr et this result as normal/abnormal . MPV (test code = 10.4 fL 9.5-12.9 15260-0) RDW-CV (test code = 12.2 % 12-15.5 788-0) RDW-SD (test code = 39.3 fL 39-49.9 66525-6) NRBC x10^3 (test <0.01 See_Comment [Automated message] The code = 2580154515) system [facility] generated this result tra nsmitted reference range : 10*3/?L. The reference r ernst was not used to int erpret this result as normal/abnormal . NRBC/100 WBC (test See_Comment [Automat ed message] The code = 0187656066) system [facility] generated this result tra nsmitted reference range : 0.0 - 10.0 /100 WBCs. The reference range was not used to interpr et this result as normal/abnormal . IPF % (test code = 8543837361) [facility]"
[2023-01-02 22:52] LABS: Protime INR 0.95
[2023-01-02 22:55] LABS: Absolute Lymphocytes (CBC) 2.4 K/uL (0.7-4.9); Hematocrit 40.1 % (36.0-45.0); Lymphocytes % 26.3 % (15.3-44.8); MCV 90.4 fL (80-100); MPV 9.1 fL (7.6-11.3); RBC Red Blood Cell Count 4.44 M/uL (3.86-4.86)
[2023-01-02 22:58] LABS: Albumin 3.8 g/dL (3.4-5.0); Bilirubin Direct 0.1 mg/dL (0-0.2); Bilirubin Indirect, Calculated 0.2 mg/dL (0.2-0.8); Bilirubin Total 0.3 mg/dL (0.2-1.0); Magnesium 2.2 mg/dL (1.6-2.4); Potassium 4.1 mEq/L (3.5-5.1); Protein, Total 7.5 g/dL (6.4-8.2); Troponin High Sensitivity 18.5 pg/mL (<58.9)
[2023-01-02] MEDS ORDERED: HYDROCODONE/APAP 10/325 TAB ONE (23:16)
[2023-01-02] MEDS ORDERED: methocarbamoL 750 MG TAB ONE (23:16)
[2023-01-02] MEDS ORDERED: ONDANSETRON 4 MG (ODT) TAB ONE (23:16)
[2023-01-02 23:38] LABS: C-Reactive Protein < 2.90 mg/L (<3.00)
--- NOTE | 2023-01-03 01:05 | ER ---
Nurse's Notes [facility] Name: Diana Harrell Age: 82 yrs Sex: Female : 1940 Arrival Date: 01/02/2023 Time: 21:42 Bed 13 Private MD: Diagnosis: Dizziness and giddiness;Muscle weakness (generalized);Right eye subconjunctival hemorrhage, right arm pain, right lower back pain, right leg pain, resting tremor, physical deconditioning;Acute COVID-19 Presentation: 01/02 22:30 Chief complaint: Patient's son or daughter states: She's been hurting off and on for a vc1 week. She woke up fine today then started hurting again. She's complaining of pain all along the right side. 22:30 Coronavirus screen: Vaccine status: Patient reports receiving the 2nd dose of the covid vc1 vaccine. Unsure of lidar scientist Client denies travel out of the [place] in the last 14 days. At this time, the client does not indicate any symptoms associated with coronavirus-19. Ebola Screen: Patient negative for fever greater than or equal to 101.5 degrees Fahrenheit, and additional compatible Ebola Virus Disease symptoms Patient denies exposure to infectious person. Patient denies travel to an Ebola-affected area in the 21 days before illness onset. No symptoms or risks identified at this time. Initial Sepsis Screen: Does the patient meet any 2 criteria? No. Patient's initial sepsis screen is negative. Does the patient have a suspected source of infection? No. Patient's initial sepsis screen is negative. Risk Assessment: Do you want to hurt yourself or someone else? Patient reports no desire to harm self or others. Onset of symptoms is unknown. 22:30 Method Of Arrival: Wheelchair vc1 22:30 Acuity: VAN 3 vc1 Triage Assessment: 22:30 Headache History: The patient has had previous headaches and this one is different than vc1 previous episodes. General: Appears in no apparent distress. uncomfortable, slender, Behavior is calm, cooperative, appropriate for age. Pain: Complains of pain in right side of head, right lower back, right leg, under right breast Pain currently is 9 out of 10 on a pain scale. Pain began Is intermittent, Also complains of no other associated symptoms. 22:30 EENT: No deficits noted. No signs and/or symptoms were reported regarding the EENT vc1 system. Neuro: Level of Consciousness is awake, alert, obeys commands, Oriented to person, place, time, situation, Appropriate for age. Cardiovascular: No deficits noted. Respiratory: Airway is patent Respiratory effort is even, unlabored, Respiratory pattern is regular, symmetrical. GI: No deficits noted. No signs and/or symptoms were reported involving the gastrointestinal system. : No deficits noted. No signs and/or symptoms were reported regarding the genitourinary system. Derm: No deficits noted. No signs and/or symptoms reported regarding the dermatologic system. Musculoskeletal: No deficits noted. No signs and/or symptoms reported regarding the musculoskeletal system. Historical: - PMHx: 23:34 Arthritis; Hypertension; vc1 - Immunization history:: Client reports receiving the 2nd dose of the Covid vaccine. - Social history:: Smoking status: Patient denies any tobacco usage or history of. - Family history:: not pertinent. Screenin:30 [facility] ED Fall Risk Assessment (Adult) History of falling in the last 3 months, vc1 including since admission No falls in past 3 months (0 pts) Confusion or Disorientation No (0 pts) Intoxicated or Sedated No (0 pts) Impaired Gait No (0 pts) Mobility Assist Device Used No (0 pt) Altered Elimination No (0 pt) Score/Fall Risk Level 0 - 2 = Low Risk Oriented to surroundings, Maintained a safe environment, Educated pt \T\ family on fall prevention, incl call for assistance when getting out of bed. Abuse screen: Denies threats or abuse. Nutritional screening: No deficits noted. Tuberculosis screening: No symptoms or risk factors identified. Assessment: 22:45 General: Appears in no apparent distress. uncomfortable, Behavior is calm, cooperative, jb4 appropriate for age. Pain: Complains of pain in Head, back, right side of body Pain does not radiate. Pain currently is 10 out of 10 on a pain scale. Neuro: Level of Consciousness is awake, alert, obeys commands, Oriented to person, place, time, situation. Cardiovascular: Patient's skin is warm and dry. Respiratory: Airway is patent Respiratory effort is even, unlabored, Respiratory pattern is regular, symmetrical. GI: No signs and/or symptoms were reported involving the gastrointestinal system. : No signs and/or symptoms were reported regarding the genitourinary system. EENT: No signs and/or symptoms were reported regarding the EENT system. Derm: Skin is intact, Skin is pink, warm \T\ dry. Musculoskeletal: Circulation, motion, and sensation intact. Range of motion: intact in all extremities. 23:35 Reassessment: Patient appears in no apparent distress at this time. Patient and/or jb4 family updated on plan of care and expected duration. Pain level reassessed. Patient is alert, oriented x 3, equal unlabored respirations, skin warm/dry/pink. 01/03 00:40 Reassessment: Patient appears in no apparent distress at this time. Patient and/or jb4 family updated on plan of care and expected duration. Pain level reassessed. Patient is alert, oriented x 3, equal unlabored respirations, skin warm/dry/pink. 07:50 Reassessment: Attempted to call report - no answer from 4th floor. Notified charge ld1 nurse - CN called housekeeping room inspector. 09:10 Reassessment: Attempted to call report. Nurse not available at this time. Notified ld1 charge nurse. 09:13 Reassessment: Patient appears in no apparent distress at this time. No changes from ld1 previously documented assessment. Patient and/or family updated on plan of care and expected duration. Pain level reassessed. Patient is alert, oriented x 3, equal unlabored respirations, skin warm/dry/pink. 09:35 Reassessment: Attempted to call report - no answer from fourth floor. 1 Vital Signs: 01/02 22:30 BP 176 / 80; Pulse 92; Resp 16; Temp 98.1; Pulse Ox 96% ; Weight 52.16 kg; Height 4 ft. vc1 11 in. ; Pain 9/10; 23:35 BP 156 / 59; Pulse 96; Resp 14; Pulse Ox 97% on R/A; jb4 01/03 00:40 BP 133 / 65; Pulse 83; Resp 16; Pulse Ox 97% ; jb4 01/02 22:30 Body Mass Index 23.23 (52.16 kg, 149.86 cm) vc1 01/02 22:30 Pain Scale: Adult vc1 Cecille Coma Score: 00:29 Eye Response: spontaneous(4). Motor Response: obeys commands(6). Verbal Response: sp4 oriented(5). Total: 15. 00:34 Eye Response: spontaneous(4). Motor Response: obeys commands(6). Verbal Response: sp4 oriented(5). Total: 15. NIH Stroke Scale Scores: 00:29 NIHSS Score: 0 sp4 ED Course: 01/02 21:47 Patient arrived in ED. ag3 21:50 Wai Nair MD is Attending Physician. sp4 22:30 Arm band placed on left wrist. vc1 22:30 Patient has correct armband on for positive identification. Bed in low position. Call vc1 light in reach. Pulse ox on. NIBP on. 22:37 Basic Metabolic Panel Sent. bc6 22:37 CBC with Diff Sent. bc6 22:37 LFT's Sent. bc6 22:37 Magnesium Sent. bc6 22:37 NT PRO-BNP Sent. bc6 22:37 PT-INR Sent. bc6 22:37 Troponin HS Sent. bc6 22:38 T4 Free Sent. bc6 22:38 TSH Sent. bc6 22:38 Inserted saline lock: 22 gauge in right forearm, using aseptic technique. Blood bc6 collected. 22:42 Radiology exam delayed due to NURSE IN ROOM. az 22:52 XRAY Chest (1 view) In Process Unspecified. EDMS 23:03 Ryan Quintana, RN is Primary Nurse. jb4 23:34 Triage completed. vc1 23:38 CT Chest, Abdomen, Pelvis - W/Contrast In Process Unspecified. EDMS 23:38 CT Head Brain wo Cont In Process Unspecified. EDMS 01/03 01:03 Corby Poole MD is Hospitalizing Provider. sp4 01:04 Alex Gross MD is Hospitalizing Provider. la1 Administered Medications: 01/02 23:17 Drug: Homer PO 10 mg-325 mg 1 tabs Route: PO; jb4 23:17 Drug: Methocarbamol PO 750 mg Route: PO; jb4 23:17 Drug: Ondansetron PO 4 mg Route: PO; jb4 01/03 02:33 Drug: MethylPrednisoLONE IVP 40 mg Route: IVP; Site: right forearm; jb4 Medication: 01/02 23:43 VIS not applicable for this client. vc1 Outcome: 01/03 01:04 Decision to Hospitalize by Provider. sp4 09:39 Patient left the ED. ll1 NIH Stroke Scale - NIH Stroke Score Date: 01/03/2023 Time: 00:29 Total Score = 0 10. Dysarthria (speech clarity - read or repeat words) - 0(Normal) 11. Extinction and Inattention (visual/tactile/auditory/spatial/personal) - 0(No abnormality) 1a. Level of Consciousness (LOC) - 0(Alert) 1b. Level of Consciousness (LOC) (Month \T\ Age) - 0(Both) 1c. LOC Commands (Open \T\ Closes Eyes/Cutter Inspector) - 0(Both) 2. Best Gaze (Lateral Gaze Paresis) - 0(Normal) 3. Visual Field Loss - 0(No visual loss) 4. Facial Palsy - 0(Normal) 5a. Left Arm: Motor (10-second hold) - 0(No drift) 5b. Right Arm: Motor (10-second hold) - 0(No drift) 6a. Left Leg: Motor (5-second hold - always test supine) - 0(No drift) 6b. Right Leg: Motor (5-second hold - always test supine) - 0(No drift) 7. Limb Ataxia (finger/nose \T\ heel/knowles - test with eyes open) - 0(Absent) 8. Sensory Loss (pinprick arms/legs/face) - 0(Normal) 9. Best Language: Aphasia (description/naming/reading) - 0(No aphasia) Initials: sp4 Signatures: Dispatcher [employer] EDMS David Zhang, SECURITY CHIEF MUSEUM-C SECURITY CHIEF MUSEUM-Cla1 Ryan Quintana, RN RN jb4 Jenni Whtie Alice ag3 River Vazquez RN RN ll1 Lin Santana RN RN ld1 Sarah Matt RN RN vc1 Zainab Renee Sergey, MD MD sp4
--- NOTE | 2023-01-03 01:05 | EDPHYS ---
Physician Documentation [facility] Name: Diana Harrell Age: 82 yrs Sex: Female : 1940 Arrival Date: 01/02/2023 Time: 21:42 Bed 13 Private MD: CHARLES Physician Wai Nair HPI: 01/02 21:50 This 82 yrs old Female presents to ER via Unassigned with complaints of sp4 Headache, Leg Pain, Back Injury, Eye Problem. 01/03 00:29 Very pleasant 82-year-old female with history of arthritis and hypertension presents sp4 with 1 week of dizziness, right leg shaking, right-sided back pain and right-sided chest pain. Patient also has incidental right subconjunctival hemorrhage. Primary MD Rocio Fontanez . Historical: - PMHx: 01/02 23:34 Arthritis; Hypertension; vc1 - Immunization history:: Client reports receiving the 2nd dose of the Covid vaccine. - Social history:: Smoking status: Patient denies any tobacco usage or history of. - Family history:: not pertinent. ROS: 01/03 00:29 Constitutional: Negative for fever, chills, and weight loss, positive generalized sp4 weakness, dizziness, feeling unwell, right leg tremors, back pain for 1 week, and overall dizziness Eyes: Negative for injury, pain, and discharge, positive right eye redness ENT: Negative for injury, pain, and discharge, Neuro: Negative for headache, weakness, numbness, tingling, and seizure, positive for right leg tremor Exam: 00:29 Constitutional: This is a well developed, well nourished patient who is awake, alert, sp4 and in no acute distress. Frail elderly female with right leg tremor Head/Face: Normocephalic, atraumatic. Eyes: Pupils equal round and reactive to light, extra-ocular motions intact. Lids and lashes normal. Conjunctiva and sclera are not injected. Cornea within normal limits. Periorbital areas with no swelling, redness, or edema. ENT: Nares patent. No nasal discharge, no septal abnormalities noted. Tympanic membranes are normal and external auditory canals are clear. Oropharynx with no redness, swelling, or masses, exudates, or evidence of obstruction, uvula midline. Mucous membranes moist. Neck: Trachea midline, no thyromegaly or masses palpated, and no cervical lymphadenopathy. Supple, full range of motion without nuchal rigidity, or vertebral point tenderness. Chest/axilla: Normal chest wall appearance and motion. Nontender with no deformity. No lesions are appreciated. Cardiovascular: Regular rate and rhythm with a normal S1 and S2. No gallops, murmurs, or rubs. Normal PMI, no JVD. No pulse deficits. Respiratory: Lungs have equal breath sounds bilaterally, clear to auscultation and percussion. No rales, rhonchi or wheezes noted. No increased work of breathing, no retractions or nasal flaring. Abdomen/GI: Soft, non-tender, with normal bowel sounds. No distension or tympany. No guarding or rebound. No evidence of tenderness throughout. Back: No spinal tenderness. No costovertebral tenderness. Skin: Warm, dry with normal turgor. Normal color with no rashes, no lesions, and no evidence of cellulitis. MS/ Extremity: Pulses equal, no cyanosis. Neurovascular intact. Full, normal range of motion. Neuro: Awake and alert, GCS 15, oriented to person, place, time, and situation. Cranial nerves II-XII grossly intact. Motor strength 5/5 in all extremities. Sensory grossly intact. Psych: Awake, alert, with orientation to person, place and time. Behavior, mood, and affect are within normal limits 00:32 ECG was reviewed by the Attending Physician. EKG time 2244, normal sinus rhythm at a sp4 rate of 89, there is no ST elevation or depression. No ectopy. Overall normal EKG Vital Signs: 01/02 22:30 BP 176 / 80; Pulse 92; Resp 16; Temp 98.1; Pulse Ox 96% ; Weight 52.16 kg; Height 4 ft. vc1 11 in. ; Pain 9/10; 23:35 BP 156 / 59; Pulse 96; Resp 14; Pulse Ox 97% on R/A; jb4 01/03 00:40 BP 133 / 65; Pulse 83; Resp 16; Pulse Ox 97% ; jb4 01/02 22:30 Body Mass Index 23.23 (52.16 kg, 149.86 cm) vc1 01/02 22:30 Pain Scale: Adult vc1 NIH Stroke Scale Scores: 00:29 NIHSS Score: 0 sp4 Cecille Coma Score: 00:29 Eye Response: spontaneous(4). Motor Response: obeys commands(6). Verbal Response: sp4 oriented(5). Total: 15. 00:34 Eye Response: spontaneous(4). Motor Response: obeys commands(6). Verbal Response: sp4 oriented(5). Total: 15. MDM: 01/02 21:53 Patient medically screened. sp4 01/03 00:34 ED course: EXAM DESCRIPTION: Head Brain Wo Cont CLINICAL HISTORY: 82 years Female sp4 DIZZINESS COMPARISON: None TECHNIQUE: Images were obtained in axial, sagittal, and coronal planes. This exam was performed according to our departmental dose-optimization program which includes use of Automated Exposure Control, adjustment of the mA and/or kV according to patient size and/or use of iterative reconstruction technique. FINDINGS: Ventricular system appears normal. No abnormal areas of increased attenuation seen. No extra-axial fluid collections noted. No evidence for skull fracture. Symmetric aeration of mastoid air cells bilaterally. Unremarkable paranasal sinuses. IMPRESSION: No acute intracranial abnormality. No evidence for hemorrhage, mass lesion, or large acute infarction. . ED course: TECHNIQUE: Images were obtained in axial, sagittal, and coronal planes. Intravenous contrast was administered. This exam was performed according to our departmental dose-optimization program which includes use of Automated Exposure Control, adjustment of the mA and/or kV according to patient size and/or use of iterative reconstruction technique. FINDINGS: CT chest: No aortic dissection or dilatation. No abnormality pulmonary arteries bilaterally. No pericardial or pleural effusions bilaterally. No adenopathy. No lung parenchymal infiltrates or nodules seen. Dependent atelectatic changes lower lungs bilaterally. No acute osseous abnormality. CT abdomen and pelvis: Decreased attenuation involving the liver possibly fatty change. Unremarkable spleen, and adrenal glands bilaterally. Prior cholecystectomy. Intrahepatic and extrahepatic biliary dilatation. Distal common bile duct measures 7 mm in the region of the head of the pancreas. Common hepatic duct measures 1.1 cm proximally. Moderate intrahepatic biliary dilatation centrally. No dilatation pancreatic duct. No obstructing renal or ureteral calculi bilaterally. Mild right hydronephrosis. No hydronephrosis. Moderately distended bladder. Appendix not well identified however no secondary signs for appendicitis. No bowel obstruction, perforation, or inflammation. Mild diverticulosis distal left colon with no associated inflammatory change. No acute osseous abnormality. Dependent atelectatic change and chronic change lower lungs bilaterally. Calcification of abdominal aorta with no dilatation seen. Unremarkable portal vein. IMPRESSION: No acute intrathoracic abnormality. No aortic dissection or dilatation. Prior cholecystectomy. Mildly dilated common hepatic duct. Moderate intrahepatic biliary dilatation. Consider correlation with MRCP to further exclude choledocholithiasis or stricture. No dilatation common bile duct. Otherwise no acute intra-abdominal abnormality. . 01:00 Differential diagnosis: glaucoma, hypoglycemia, hyponatremia, migraine, neoplasm, sp4 subdural hematoma, tension headache, uremia, vasomotor headache. Data reviewed: vital signs, nurses notes, old medical records, lab test result(s), EKG, radiologic studies, CT scan, plain films. Consideration of Admission/Observation Patient was admitted/placed on observation. Escalation of care including admission/observation considered. Management of patient was discussed with the following: Hospitalist: Discussed with admitting team. ED course: Patient is 82-year-old female who presents with moderate worsening generalized weakness and dizziness for the past 7 days. Patient also reported right-sided arm and leg pain right leg tremors and also has finding of incidental basically finding of right subconjunctival hemorrhage. On exam patient reports she gets very short of breath when she gets up to ambulate. Patient managed to get up with assistance managed to take 2 steps but then had to lean backwards to lay down on the bed. Also noticed significant generalized stiffness on exam without lateralizing neurological deficits. This time will proceed with request to admit patient for management of dizziness additional investigations that may include CT angiography of the head and brain or MRI head brain. Patient may also benefit from echocardiogram. Condition on admit is stable vital signs are stable. Patient is afebrile we will obtain influenza and COVID-19 screening tests . 01/02 21:53 Order name: Basic Metabolic Panel; Complete Time: 00:28 4 01/02 21:53 Order name: CBC with Diff; Complete Time: 00:28 4 01/02 21:53 Order name: LFT's; Complete Time: 00:28 4 01/02 21:53 Order name: Magnesium; Complete Time: 00:28 4 01/02 21:53 Order name: NT PRO-BNP; Complete Time: 00:28 4 01/02 21:53 Order name: PT-INR; Complete Time: 00: 4 01/02 21:53 Order name: Troponin HS; Complete Time: 00:28 sp4 01/02 22:02 Order name: CRP; Complete Time: 00:28 sp4 01/02 22:03 Order name: Urinalysis W/Microscopic sp4 01/02 22:03 Order name: TSH; Complete Time: 00:28 sp4 01/02 22:03 Order name: T4 Free; Complete Time: 00:28 sp4 01/03 00:49 Order name: Influenza Screen (a \T\ B); Complete Time: 03:51 sp4 01/03 00:49 Order name: COVID-19 SARS RT PCR; Complete Time: 03:51 sp4 01/03 04:49 Order name: CBC with Automated Diff EDMS 01/03 04:52 Order name: Basic Metabolic Panel EDMS 01/03 04:52 Order name: Troponin High Sensitivity EDMS 01/03 04:52 Order name: Lipid Profile EDPA 01/02 21:53 Order name: XRAY Chest (1 view) 4 01/02 22:02 Order name: CT Chest, Abdomen, Pelvis - W/Contrast 4 01/02 22:02 Order name: CT Head Brain wo Cont sp4 01/02 21:53 Order name: EKG; Complete Time: 21:54 sp4 01/02 21:53 Order name: Cardiac monitoring; Complete Time: 22:46 sp4 01/02 21:53 Order name: EKG - Nurse/Tech; Complete Time: 22:46 sp4 01/02 21:53 Order name: IV Saline Lock; Complete Time: 22:37 sp4 01/02 21:53 Order name: Labs collected and sent; Complete Time: 22:37 sp4 01/02 21:53 Order name: O2 Per Protocol; Complete Time: 22:37 sp4 01/02 21:53 Order name: O2 Sat Monitoring; Complete Time: 22:37 sp4 EC:32 Rate is 89 beats/min. Rhythm is regular, Normal Sinus Rhythm. QRS [place] is Normal. [place] sp4 interval is normal. QRS interval is normal. QT interval is normal. T waves are Normal. No ST changes noted. Clinical impression: No evidence of ischemia. Interpreted by me. Administered Medications: 01/02 23:17 Drug: [place] PO 10 mg-325 mg 1 tabs Route: PO; jb4 23:17 Drug: Methocarbamol PO 750 mg Route: PO; jb4 23:17 Drug: Ondansetron PO 4 mg Route: PO; jb4 01/03 02:33 Drug: MethylPrednisoLONE IVP 40 mg Route: IVP; Site: right forearm; jb4 Disposition Summary: 01/03/23 01:04 Hospitalization Ordered Hospitalization Status: Inpatient Admission sp4 Condition: Stable sp4 Problem: new sp4 Symptoms: are unchanged sp4 Bed/Room Type: Standard sp4 Provider: Alex Gross(01/03/23 01:04) claire Location: Telemetry/MedSurg (Inpatient)(01/03/23 06:36) cg Room Assignment: 417(01/03/23 07:10) bd Diagnosis - Dizziness and giddiness sp4 - Muscle weakness (generalized) sp4 - Right eye subconjunctival hemorrhage, right arm pain, right lower back pain, right sp4 leg pain, resting tremor, physical deconditioning - Acute COVID-19 sp4 Forms: - Medication Reconciliation Form sp4 - SBAR form sp4 NIH Stroke Scale - NIH Stroke Score Date: 01/03/2023 Time: 00:29 Total Score = 0 10. Dysarthria (speech clarity - read or repeat words) - 0(Normal) 11. Extinction and Inattention (visual/tactile/auditory/spatial/personal) - 0(No abnormality) 1a. Level of Consciousness (LOC) - 0(Alert) 1b. Level of Consciousness (LOC) (Month \T\ Age) - 0(Both) 1c. LOC Commands (Open \T\ Closes Eyes/Bedspread Inspector) - 0(Both) 2. Best Gaze (Lateral Gaze Paresis) - 0(Normal) 3. Visual Field Loss - 0(No visual loss) 4. Facial Palsy - 0(Normal) 5a. Left Arm: Motor (10-second hold) - 0(No drift) 5b. Right Arm: Motor (10-second hold) - 0(No drift) 6a. Left Leg: Motor (5-second hold - always test supine) - 0(No drift) 6b. Right Leg: Motor (5-second hold - always test supine) - 0(No drift) 7. Limb Ataxia (finger/nose \T\ heel/knowles - test with eyes open) - 0(Absent) 8. Sensory Loss (pinprick arms/legs/face) - 0(Normal) 9. Best Language: Aphasia (description/naming/reading) - 0(No aphasia) Initials: sp4 Signatures: Dispatcher [employer] EDGenevieve Gold Lee, SENIOR INFORMATION SYSTEMS ARCHITECT-C SENIOR INFORMATION SYSTEMS ARCHITECT-Cla1 Gavi Lucas, RN RN cg Ryan Quintana RN RN jb4 Sarah Matt RN RN vc1 Wai Nair MD MD sp4 Corrections: (The following items were deleted from the chart) 01:04 01:04 Corby Poole sp4 la1 01:34 01:04 Telemetry/MedSurg (Inpatient) sp4 cg 01:34 01:04 sp4 cg 06:36 01:34 [facility] ER HOLD cg cg 06:36 01:34 ERHOLD- cg cg 07:10 06:36 cg bd
--- NOTE | 2023-01-03 01:54 | P.HP ---
Certification for Inpatient Patient admitted to: Observation With expected LOS: <2 Midnights Patient will require the following post-hospital care: None Practitioner: I am a practitioner with admitting privileges, knowledge of patient current condition, hospital course, and medical plan of care. Services: Services provided to patient in accordance with Admission requirements found in Title 42 Section 412.3 of the Code of Federal Regulations <David Zhang Parag Gil - Last Filed: 01/03/23 01:52> Patient History Date of Service: 01/03/23 Reason for admission: Dizziness, weakness History of Present Illness: 82-year-old female with history of hypertension presents to the emergency department for dizziness, gait instability, pain. Over the course of last 1 week she has had significant deconditioning, she typically walks without any assistive devices and lives at home with her independently and over the course of the last week has lost her ability to walk and on significant right- sided pain. She reports dizziness which also is new in onset this seems to be affecting her ability to walk. Her labs in the ER were unremarkable she also had CT of her head, chest, abdomen pelvis which were negative for acute findings. On exam she does have pain with range of motion of her right shoulder, right hip. ED provider wishes to admit for further evaluation and management of dizziness, gait instability, weakness, pain. - Past Medical/Surgical History Diabetic: No -: htn -: high cholesterol -: cholecystectomy -: r oopherectomy Psychosocial/ Personal History: Patient lives at home with her - Family History Family History: Reviewed- Non-Contributory - Social History Smoking Status: Never smoker Alcohol use: No CD- Drugs: No Caffeine use: Yes Place of Residence: Home <LeathaDavid - Last Filed: 01/03/23 01:52> Date of Service: 01/03/23 <Alex Gross - Last Filed: 01/03/23 11:49> Allergies No Known Allergies Allergy (Unverified 04/11/13 09:48) Home Medications: RX: Alendronate Sodium 35 mg PO EVERY 7TH DAY 01/03/23 RX: Atenolol [Tenormin] 50 mg PO DAILY 01/03/23 RX: Diclofenac Na [Voltaren D.r*] 75 mg PO BID 01/03/23 RX: Ezetimibe [Zetia*] 10 mg PO DAILY 01/03/23 RX: Lisinopril [Zestril] 20 mg PO DAILY 01/03/23 Review of Systems 10-point ROS is otherwise unremarkable General: Weakness Cardiovascular: Light Headedness Neurological: Other (Dizziness) <David Zhang - Last Filed: 01/03/23 01:52> Physical Examination - Physical Exam General: Alert, In no apparent distress, Oriented x3 HEENT: Atraumatic, PERRLA, Mucous membr. moist/pink, EOMI, Sclerae nonicteric Neck: Supple, 2+ carotid pulse no bruit, No LAD, Without JVD or thyroid abnormality Respiratory: Clear to auscultation bilaterally, Normal air movement Cardiovascular: Regular rate/rhythm, Normal S1 S2 Capillary refill: <2 Seconds Gastrointestinal: Normal bowel sounds, No tenderness Musculoskeletal: No tenderness Integumentary: No rashes Neurological: Normal speech, Normal strength at 5/5 x4 extr, Normal tone, Normal affect, Abnormal gait - Studies Laboratory Data (last 24 hrs) 01/02/23 01/02/23 01/02/23 22:30 22:30 22:30 WBC 9.10 Hgb 13.5 Hct 40.1 Plt Count 209 PT 10.5 INR 0.95 Sodium 138 Potassium 4.1 BUN 18 Creatinine 0.87 Glucose 128 H Magnesium 2.2 Total Bilirubin 0.3 AST 18 ALT 25 Alkaline Phosphatase 81 Microbiology Data (last 24 hrs): 01/03/23 01:00 Nasopharnyx Influenza Type A Antigen Screen - Final 01/03/23 01:00 Nasopharnyx Influenza Type B Antigen Screen - Final <David Zhang - Last Filed: 01/03/23 01:52> - Studies Laboratory Data (last 24 hrs) 01/02/23 01/02/23 01/02/23 22:30 22:30 22:30 WBC 9.10 Hgb 13.5 Hct 40.1 Plt Count 209 PT 10.5 INR 0.95 Sodium 138 Potassium 4.1 BUN 18 Creatinine 0.87 Glucose 128 H Magnesium 2.2 Total Bilirubin 0.3 AST 18 ALT 25 Alkaline Phosphatase 81 Microbiology Data (last 24 hrs): 01/03/23 01:00 Nasopharnyx Influenza Type A Antigen Screen - Final 01/03/23 01:00 Nasopharnyx Influenza Type B Antigen Screen - Final <Alex Gross - Last Filed: 01/03/23 11:49> Assessment and Plan - Plan Assessment: Dizziness, weakness, gait instability, deconditioning Right-sided pain, chest pain Hypertension Plan: Dizziness, weakness, gait instability, deconditioning Right-sided pain, chest pain Acute onset over the course of the last 1 week, will obtain MRI to rule out CVA, PT consult. Patient also likely significant limited by pain, she is having pain in the right side of her body she has difficulty describing seems to primarily affect her shoulder and right hip. Will trial dose of steroids. She does report some chest pain as well, will trend troponins. Hypertension Continue home medications. DVT PPX: Lovenox Code status: Full Discharge Plan: Home Plan to discharge in: 24 Hours - Advance Directives Does patient have a Living Will: No Does patient have a Durable POA for Healthcare: No - Code Status/Comfort Care Code Status Assessed: Yes (Full code) Critical Care: No Time Spent Managing Pts Care (In Minutes): 55 <David Zhang - Last Filed: 01/03/23 01:52> Physician Review: Patient Assessed, Agree with Above Assessment and Plan <Alex Gross - Last Filed: 01/03/23 11:49>
[2023-01-03] MEDS ORDERED: METHYLPREDNISOLONE 40 MG INJ ONE (02:35)
[2023-01-03] MEDS ORDERED: ACETAMINOPHEN 500 MG TAB PO PRN (03:02)
[2023-01-03] MEDS ORDERED: ACETAMINOPHEN 500 MG TAB ONE (03:38)
[2023-01-03] MEDS: HYDROCODONE/APAP 5/325 MG TAB PO PRN ×2 (03:46→22:53)
[2023-01-03 04:40] LABS: Absolute Lymphocytes (CBC) 1.7 K/uL (0.7-4.9); Hematocrit 38.8 % (36.0-45.0); Lymphocytes % 19.6 % (15.3-44.8); MCV 90.3 fL (80-100)
[2023-01-03 04:52] LABS: Potassium 4.4 mEq/L (3.5-5.1); Troponin High Sensitivity 20.4 pg/mL (<58.9)
[2023-01-03 06:46] LABS: Specific Gravity > 1.030 (1.005-1.030); Urine Bacteria <20 /HPF (<20); Urine Bilirubin NEGATIVE (Negative); Urine Blood Negative (Negative); Urine Clarity Clear (Clear); Urine Color Light-Yellow (Yellow); Urine Glucose NEGATIVE (Negative); Urine Mucus Slight /HPF (None Seen); Urine Protein TRACE (Negative); Urine RBC <5 /HPF (None Seen); Urine Urobilinogen Normal (Normal); Urine pH 5.5 (5.0-7.0)
[2023-01-03] MEDS ORDERED: predniSONE 20 MG TAB PO SCH (09:00)
[2023-01-03] MEDS: ASPIRIN EC 81 MG TAB PO SCH (11:32)
[2023-01-03] MEDS: ENOXAPARIN 40 MG/0.4 ML SQ SCH (11:32)
--- NOTE | 2023-01-03 13:39 | RAD REPORT ---
EXAM DESCRIPTION: RAD - Chest Single View - 01/02/2023 10:51 pm CLINICAL HISTORY: The patient is 82 years old and is Female; CHEST PAIN [facility] MAIN TECHNIQUE: Frontal view of the chest. COMPARISON: No relevant prior studies available. FINDINGS: LUNGS: Unremarkable. No consolidation. PLEURAL SPACE: Unremarkable. No pleural effusion. No pneumothorax. HEART: Unremarkable. No cardiomegaly. MEDIASTINUM: Normal cardiomediastinal silhouette. BONES/JOINTS: Degenerative changes of the bilateral shoulders. Multilevel spondylosis. VASCULATURE: Calcified atherosclerosis of the thoracic aorta. UPPER ABDOMEN: Right upper quadrant cholecystectomy clips are noted. IMPRESSION: No acute findings in the chest. Electronically signed by: Marcello Harrison MD 01/02/2023 11:01 PM CDT Due to temporary technical issues with the PACS/Fluency reporting system, reports are being signed by the in house radiologists without review as a courtesy to insure prompt reporting. The interpreting radiologist is fully responsible for the content of the report.
--- NOTE | 2023-01-03 13:40 | RAD REPORT ---
EXAM DESCRIPTION: CT - Head Brain Wo Cont - 01/03/2023 6:28 am CLINICAL HISTORY: 82 years Female DIZZINESS COMPARISON: None TECHNIQUE: Images were obtained in axial, sagittal, and coronal planes. This exam was performed according to our departmental dose-optimization program which includes use of Automated Exposure Control, adjustment of the mA and/or kV according to patient size and/or use of i terative reconstruction technique. FINDINGS: Ventricular system appears normal. No abnormal areas of increased attenuation seen. No extra-axial fluid collections noted. No evidence for skull fracture. Symmetric aeration of mastoid air cells bilaterally. Unremarkable par anasal sinuses. IMPRESSION: No acute intracranial abnormality. No evidence for hemorrhage, mass lesion, or large acu te infarction. Electronically signed by: Annmarie Carroll MD 01/03/2023 12:09 AM CDT Due to temporary technical issues with the PACS/Fluency reporting system, reports are being signed by the in house radiologists without review as a courtesy to insure prompt reporting. The interpreting radiologist is fully responsible for the content of the report.
--- NOTE | 2023-01-03 15:38 | RAD REPORT ---
EXAM DESCRIPTION: CT - Chest Abdomen Pelvis W Cont - 01/03/2023 6:28 am CLINICAL HISTORY: 82 years Female CHEST PAIN COMPARISON: None TECHNIQUE: Images were obtained in axial, sagittal, and coronal planes. Intravenous contrast was adm inistered. This exam was performed according to our departmental dose-optimization program which includes use of Automated Exposure Control, adjustment of the mA and/or kV according to patient size and/or use of i terative reconstruction technique. FINDINGS: CT chest: No aortic dissection or dilatation. No abnormality pulmonary arteries bilaterall y. No pericardial or pleural effusions bilaterally. No adenopathy. No lung parenchymal infiltrates or nodules seen. Dependent atelectatic changes lower lungs bilaterally. No acute osseous abnormality. CT abdomen and pelvis: Decreased attenuation involving the liver possibly fatty change. Unremarkable spleen, and adrenal glands bilaterally. Prior cholecystectomy. Intrahepatic and extrahepatic biliary dilatation. Distal common bile duct measures 7 mm in the region of the head of the pancreas. Common h epatic duct measures 1.1 cm proximally. Moderate intrahepatic biliary dilatation centrally. No dilata tion pancreatic duct. No obstructing renal or ureteral calculi bilaterally. Mild right hydronephrosis. No hydronephrosis. M oderately distended bladder. Appendix not well identified however no secondary signs for appendicitis . No bowel obstruction, perforation, or inflammation. Mild diverticulosis distal left colon with no a ssociated inflammatory change. No acute osseous abnormality. Dependent atelectatic change and chronic change lower lungs bilaterally. Calcification of abdominal aorta with no dilatation seen. Unremarkable portal vein. IMPRESSION: No acute intrathoracic abnormality. No aortic dissection or dilatation. Prior cholecystectomy. Mildly dilated common hepatic duct. Moderate intrahepatic biliary dilatation. Consider correlation with MRCP to further exclude choledocholithiasis or stricture. No dilatation com mon bile duct. Otherwise no acute intra-abdominal abnormality. Electronically signed by: Annmarie Carroll MD 01/03/2023 12:07 AM CDT Due to temporary technical issues with the PACS/Fluency reporting system, reports are being signed by the in house radiologists without review as a courtesy to insure prompt reporting. The interpreting radiologist is fully responsible for the content of the report.
--- NOTE | 2023-01-03 17:32 | EKG ---
Test Date: 2023-01-02 Test Time: 22:44:25 Table Attendant: MEGHA MEASUREMENT RESULTS: Intervals: Rate: 89 NV: 144 QRSD: 82 QT: 348 QTc: 423 [place]: P: 73 NV: 144 QRS: -49 T: 81 INTERPRETIVE STATEMENTS: Normal sinus rhythm Left anterior fascicular block Abnormal ECG Compared to ECG 04/11/2019 16:27:20 Left anterior fascicular block now present Sinus bradycardia no longer present Electronically Signed On 01-03-23 17:31:01 CDT by Epi Morris
[2023-01-04 04:54] VITALS: BMI 23.4
[2023-01-04] MEDS: ASPIRIN EC 81 MG TAB PO SCH (08:47)
[2023-01-04] MEDS: ENOXAPARIN 40 MG/0.4 ML SQ SCH (08:48)
--- NOTE | 2023-01-04 09:21 | P.CNS ---
Date of Consult: 01/04/23 Reason for Consult: COVID Chief Complaint: Dizziness, weakness History of Present Illness: Patient is an 82 yo female with a history of HTN and HLD who presented to the ED with complaints of dizziness and weakness progressively worsening over the past week. Patient tested positive for Covid-19 and ID was consulted. Allergies No Known Allergies Allergy (Unverified 04/11/13 09:48) Home medications list reviewed: Yes Home Medications: Alendronate Sodium 35 mg PO EVERY 7TH DAY 01/03/23 Atenolol [Tenormin] 50 mg PO DAILY 01/03/23 Diclofenac Na [Voltaren D.r*] 75 mg PO BID 01/03/23 Ezetimibe [Zetia*] 10 mg PO DAILY 01/03/23 Lisinopril [Zestril] 20 mg PO DAILY 01/03/23 - Past Medical/Surgical History Diabetic: No -: htn -: high cholesterol -: cholecystectomy -: r oopherectomy Psychosocial/ Personal History: Patient lives at home with her - Social History Smoking Status: Never smoker Alcohol use: No CD- Drugs: No Caffeine use: Yes Place of Residence: Home Review of Systems Unremarkable Physical Examination Temp Pulse Resp BP Pulse Ox 97.2 F 90 16 142/61 H 96 01/04/23 04:00 01/04/23 04:00 01/04/23 04:00 01/04/23 04:00 01/04/23 04:00 General: Alert, In no apparent distress, Oriented x3 HEENT: Atraumatic, Normocephalic, Mucous membr. moist/pink Neck: JVD not distended Respiratory: Clear to auscultation bilaterally, Normal air movement Cardiovascular: No edema, Regular rate/rhythm Gastrointestinal: Normal bowel sounds, Soft and benign Musculoskeletal: No clubbing, No swelling Integumentary: No rashes, No breakdown Neurological: Normal speech, Normal affect Laboratory Data - Reviewed Microbiology Data - Reviewed Imagings Data: - Reviewed Conclusions/Impression: Problem List Hypertension Hyperlipidemia COVID-19 positive COVID-19 - covid rapid screen PCR 01/02: Positive - XR Chest 01/02: "No acute findings in the chest." - Afebrile. No leukocytosis. Patient denies any respiratory symptoms. Recommendations Patient presented to ED with complaints of generalized weakness and dizziness for about 1 week prior to arrival. She was found to be COVID positive. XR chest without acute findings. Generalized weakness now improved. Patient denies any respiratory symptoms; No cough, no shortness of breath, no chest pain, no wheezing. No headache, no loss of taste of smell. No sore throat, congestion or rhinorrhea. No nausea or vomiting. No fever or chills. No mental status changes. - We will continue with supportive management. Maintain adequate hydration and nutrition. Follow up with PCP in 1-2 weeks. Case discussed with Almita Grajeda
[2023-01-04 11:45] VITALS: O2SAT 97
--- NOTE | 2023-01-04 12:58 | RAD REPORT ---
EXAM DESCRIPTION: MRI - Cholangiogram - 01/04/2023 12:47 pm CLINICAL HISTORY: biliary dilation on CT Abdominal pain COMPARISON: Chest Abdomen Pelvis W Cont dated 01/02/2023 FINDINGS: Three-dimensional MRCP was performed using maximum intensity projection reconstruction on the same work station. There is mild dilatation of the intrahepatic biliary tree. Mild dilatation up to 10 mm also seen in t he common duct. The pancreatic duct is not pathologically dilated. Cholecystectomy. Limited T2 sequences through the abdomen demonstrates no bulky adenopathy, significant free fluid or abscess. IMPRESSION: Intrahepatic and extrahepatic biliary tree dilatation is [id number] and likely rel ated to previous cholecystectomy. No evidence of retained stone or stricture is seen.
--- NOTE | 2023-01-04 13:25 | RAD REPORT ---
EXAM DESCRIPTION: MRI - Brain Wo Cont - 01/04/2023 1:02 pm CLINICAL HISTORY: Dizziness, gait instability, weakness Headache, drowsiness COMPARISON: Head Brain Wo Cont dated 01/02/2023; Brain Wo Cont dated 04/11/2019 TECHNIQUE: Multi-sequence, multiplanar MR imaging of the brain was performed without contrast. FINDINGS: No intracranial hemorrhage, hydrocephalus or extra-axial fluid collections.Mild periventri cular white-matter lesions likely chronic microvascular ischemic changes, slightly greater on the rig ht. No edema or shift of midline structures. No findings to suspect brain mass. DWI is negative for a cute CVA. Midline structures are normally formed. Mastoid air cells and paranasal sinuses are clear. IMPRESSION: Negative for acute CVA or other acute intracranial process.
--- NOTE | 2023-01-04 14:23 | P.DS ---
Admission Date: 01/03/23 Discharge Date: 01/04/23 Disposition: ROUTINE DISCHARGE Discharge Condition: GOOD Reason for Admission: Dizziness, weakness Consultations: 1. Infectious Diseases Hospital Course: DIAGNOSES: # Generalized Weakness likely due to COVID-19 Infection # Hypertension # Intrahepatic and Extrahepatic Biliary Tree Dilatation # Dyslipidemia HOSPITAL COURSE: Ms. Diana Harrell is a pleasant 82 year old female with a past medical history significant for hypertension and dyslipidemia who was admitted to the [facility] on 01/03/2023 for generalized weakness. She was admitted to the Medicine service. Upon further evaluation, her chest x- ray revealed, "no acute findings in the chest." Her CT head revealed, "no acute intracranial abnormality. No evidence for hemorrhage, mass lesion, or large acute infarction." Her MRI brain revealed, "negative for acute CVA or other acute intracranial process." She was found to test positive for COVID-19. Infectious Diseases was consulted and she was evaluated by Dr. Farmer. Given her unremarkable chest x-ray and lack of respiratory symptoms, he recommended against anti-viral therapy. She was counseled on the importance of isolation precautions and good hygiene. Physical Therapy was consulted due to her generalized weakness and it was felt that she did not require any additional therapy services. Over the course of her hospitalization, her weakness improved significantly and she stated that she feels ready to be discharged home. She had a CT chest/abdomen/pelvis which revealed, "no acute intrathoracic abnormality. No aortic dissection or dilatation. Prior cholecystectomy. Mildly dilated common hepatic duct. Moderate intrahepatic biliary dilatation. Consider correlation with MRCP to further exclude choledocholithiasis or stricture. No dilatation common bile duct. Otherwise no acute intra-abdominal abnormality." Her MRCP revealed, "Intrahepatic and extrahepatic biliary tree dilatation is [id number] and likely related to previous cholecystectomy. No evidence of retained stone or stricture is seen." I reviewed these findings with Dr. Hinson (Gastroenterology), who stated that this can be seen post- cholecystectomy. Her CT scan also incidentally revealed, "mild right hydronephrosis. No hydronephrosis. Moderately distended bladder." A follow-up renal ultrasound was obtained, which revealed, "unremarkable renal sonogram." On 01/04/2023, she was seen on rounds and deemed medically stable for discharge. She was discharged with instructions to schedule follow-up appointments with her PCP (Dr. Fontanez) and Gastroenterology (Dr. Hinson). She and her family members were given the opportunity to ask questions and reported no further questions. Furthermore, all questions were answered to the best of my ability. A copy of this discharge summary will be sent to the above providers to facilitate continuity of care. Today, I personally spent 25 minutes on her case, of which greater than 50% of the time was spent in patient education, counseling, and coordination of care as described above. Vital Signs/Physical Exam: Temp Pulse Resp BP Pulse Ox 97.9 F 92 H 18 160/64 H 98 01/04/23 08:00 01/04/23 08:00 01/04/23 08:00 01/04/23 08:00 01/04/23 08:00 General: Alert, In no apparent distress, Oriented x3 HEENT: Atraumatic, Mucous membr. moist/pink, Sclerae nonicteric Neck: JVD not distended Respiratory: Clear to auscultation bilaterally, Normal air movement Cardiovascular: No edema, Regular rate/rhythm, Normal S1 S2, No gallops, No rubs, No murmurs Gastrointestinal: Normal bowel sounds, Soft and benign, Non-distended, No tenderness, No rebound, No guarding Musculoskeletal: No clubbing Integumentary: No rashes Neurological: Normal speech, Normal affect Laboratory Data at Discharge: WBC 8.60 thou/uL (4.3-10.9) 01/03/23 03:57 Hgb 13.4 g/dL (12.0-15.0) 01/03/23 03:57 Hct 38.8 % (36.0-45.0) 01/03/23 03:57 Plt Count 191 thou/uL (152-406) 01/03/23 03:57 PT 10.5 SECONDS (9.5-12.5) 01/02/23 22:30 INR 0.95 01/02/23 22:30 Sodium 136 mEq/L (136-145) 01/03/23 03:57 Potassium 4.4 mEq/L (3.5-5.1) 01/03/23 03:57 BUN 16 mg/dL (7-18) 01/03/23 03:57 Creatinine 0.86 mg/dL (0.55-1.02) 01/03/23 03:57 Glucose 143 mg/dL (74-106) H 01/03/23 03:57 Magnesium 2.2 mg/dL (1.6-2.4) 01/02/23 22:30 Total Bilirubin 0.3 mg/dL (0.2-1.0) 01/02/23 22:30 AST 18 U/L (15-37) 01/02/23 22:30 ALT 25 U/L (13-56) 01/02/23 22:30 Alkaline Phosphatase 81 U/L (45-117) 01/02/23 22:30 Triglycerides 76 mg/dL (<150) 01/03/23 03:57 Cholesterol 186 mg/dL (<200) 01/03/23 03:57 HDL Cholesterol 55 mg/dL (40-60) 01/03/23 03:57 Cholesterol/HDL Ratio 3.38 01/03/23 03:57 Home Medications: Alendronate Sodium 35 mg PO EVERY 7TH DAY 01/03/23 Atenolol [Tenormin] 50 mg PO DAILY 01/03/23 Diclofenac Na [Voltaren D.r*] 75 mg PO BID 01/03/23 Ezetimibe [Zetia*] 10 mg PO DAILY 01/03/23 Lisinopril [Zestril] 20 mg PO DAILY 01/03/23 Physician Discharge Instructions: 1. Please call and schedule a follow-up appointment with your PCP (Dr. Fontanez) in 3-5 days 2. Please call and schedule a follow-up appointment with Gastroenterology (Dr. Hinson) in 5-7 days - Your MRI showed that there is slight dilitation of the tube that used to drain your gallbladder (bile duct). This is likely due to your prior surgery. Please follow-up with Dr. Hinson for further evaluation. Diet: Regular Activity: Ad mikayla Followup: Mikal Hinson MD [ACTIVE - CAN ADMIT] - Rocio Fontanez, DO [OUTSIDE PHYSICIAN] - Time spent managing pt's care (in minutes): 25
--- NOTE | 2023-01-04 14:31 | RAD REPORT ---
EXAM DESCRIPTION: US - Renal Ultrasound-Complete - 01/04/2023 1:58 pm CLINICAL HISTORY: follow-up right hydronephrosis Flank pain COMPARISON: Cholangiogram dated 01/04/2023; Chest Abdomen Pelvis W Cont dated 01/02/2023 FINDINGS: Both kidneys are normal in size, shape and echotexture. The right kidney measures 9.3 x 4.1 x 4.4 cm. No hydronephrosis, focal mass or perinephric fluid. The left kidney measures 9.4 x 4.6 x 4.4 cm. No hydronephrosis, focal mass or perinephric fluid. The urinary bladder is incompletely distended without gross abnormality seen. Debris likely present. IMPRESSION: Unremarkable renal sonogram.
[2023-01-04 14:35] VITALS: BP 147/71; TEMP 98
== END 2023-01-04 15:56 | disposition home or self-care (01) ==
LOC: ER 21:42 → ERHOLD 01-03 01:53 → 4TH 01-03 09:45
PROVIDERS: ADMIT Internal Medicine; ATTEND Internal Medicine
DX: U07.1 COVID-19 (principal); R42 Dizziness and giddiness; R07.9 Chest pain, unspecified; I10 Essential (primary) hypertension; R26.89 Other abnormalities of gait and mobility; E78.5 Hyperlipidemia, unspecified; Q44.5 Other congenital malformations of bile ducts; N32.89 Other specified disorders of bladder
CPT/HCPCS: 36415; 70450; 70551; 71045; 71260; 74177; 74181; 76770; 80048; 80061; 80076; 81001; 83735; 83880; 84439; 84443; 84484; 85025; 85610; 86140; 87635; 87804; 93005; 96374; 97161; 99284; J2920; J7512; Q0162; Q9967

== ENCOUNTER → 2023-06-30 | Emergency (ER) | payer OTHER ==
[~2023-06-30] MED LIST: MORPHINE 4 MG/ML SYR ONE; ONDANSETRON 4 MG (ODT) TAB ONE
--- OUTSIDE RECORDS SUMMARY | 2023-06-30 08:46 | XMS REPORT | Continuity of Care Document ---
Author Name Unknown Address [address] [facility] [place] [address] [facility] Address [address] [facility] [place] [address] Care Team Providers Care Signals Collector/Analyst Name Role Phone PCP, PATIENT DOES NOT HAVE A Primary Care Physic kade Unavailable [email or web address] Attending Clinician UnavailELISHA Will Attending Clinician Unavailable RAMIRO CADET Attending Clinician UnavailRAMIRO Cleary Attending Clinician UnavailRamiro Cleary MD Attending Clinician [phone] Doctor Unassigned, [place] Attending Clinician U Elda Turk RN Attending Clinician Unavailable Virgie Hammer Attending Clinician [phone] Kendall Schultz MD Attending Clinician Meg Murrieta MD Attending Clinician [phone] TAMMI MAGANA Attending Clinician Unavailable JUAN LUIS PAGE Attending Clinician Unavailable Ricardo Kenyon MD Attending Clinician [phone] Juan Luis Page MD Attending Clinician [phone] Nurse, [facility] General Surgery Attending Clinician U Soham Waterman MD Attending Clinician [phone] SOHAM SCHULTZ Attending Clinician Unavailable Kateryna LARES, Andres S Attending Clinician [phone] Lavern LARES, Ros S Attending Clinician [phone] Keon KAY, Alphonso Odonnell Attending Clinician [phone] Juliet Freitas Cardio Vascular Attending Clinician Un available [email or web address]_S Admitting Clinician UnavailRAMIRO Bryant Admitting Clinician UnavailMeg Amezcua MD Admitting Clinician [phone] JUAN LUIS PAGE Admitting Clinician Unavailable Juan Luis Page MD Admitting Clinician Payers Payer Name Policy Type Policy Number Effective Date Expirati on Date Source ELENI CARR PLS HMO [id number] 2019 00:00:00 MEDICARE PART A \\T\\ B [id number] 2007 00:00:00 Problems Condition Name Condition Details Condition Category Status Onset Date Resolution Date Last Treatment Date Treating Clinician Comments Source Headache Headache Disease Active 09-08 00:00: 00 [facility] Depression Depression Disease Active 2019-06 00:00: 00 [facility] Diarrhea Diarrhea Disease Active 2019-06 00:00: 00 [facility] Slurred speech Slurred speech Disease Active 2019-06 00:00: 00 [facility] Allergies, Adverse Reactions, Alerts Allergy Name Allergy Type Status Severity Reaction(s) Onset Date Inactive Date Treating Clinician Comments Source NO KNOWN ALLERGIE S Drug Class Active [facility] Social History Social Habit Start Date Stop Date Quantity Comments Source Gender identity [facility] to SARS-CoV-2 (event) Not sure [facility] Tobacco use and exposure 2023-01-18 00:00:00 2023-01-18 00:00:00 Smokeless tobacco non-user [facility] History of Social function 2023-01-18 00:00:00 2023-01-18 00:00:00 [facility] Sex Assigned At 1940 00:00:00 1940 00:00:00 [facility] Smoking Status Start Date Stop Date Source Never smoked tobacco [facility] Unknown if ever smoked [facility] Medications Ordered Medication Name Filled Medication Name Start Date Stop Date Current Medication? Ordering Clinician Indication Dosage Frequency Signature (SIG) Comments Components Source ketorolac (TORADOL) injection 15 mg 09-08 15:00: 00 09-08 14:31 :00 No 15mg 15 mg, Slow IV Push, ONCE, 1 dose, Sun09/08/20 at 1000, Routine
solar crew member approving Restricted medication : MEG MURRIETA [facility] pantoprazol e (PROTONIX) EC tablet 40 mg 09-08 14:00: 00 Yes 40mg 40 mg, Oral, DAILY, First dose on Sun09/08/20 at 0900, Until Discontinu ed, Routine [facility] aspirin chewable tablet 81 mg 09-08 14:00: 00 Yes 81mg 81 mg, Oral, DAILY, First dose on Sun09/08/20 at 0900, Until Discontinu ed, Routine [facility] magnesium sulfate in water 2 gram/50 mL (4 %) infusion 2 g 09-08 14:00: 00 09-08 13:16 :00 No 2g 2 g, IV Piggyback, ONCE, 1 dose, Sun09/08/20 at 0900, Routine [facility] clopidogreL (PLAVIX) tablet 300 mg 09-08 14:00: 00 09-08 08:47 :34 No 300mg 300 mg, Oral, DAILY, First dose on Sun09/08/20 at 0900, Until Discontinu ed, Routine [facility] heparin (porcine) injection 5,000 Units 09-08 13:00: 00 Yes 5000U 5,000 Units, Subcutaneo us, Q12H, First dose on Sun09/08/20 at 0800, Until Discontinu ed, Routine [facility] NaCl 0.9% (NS) IV infusion 1,000 mL 09-08 08:45: 00 Yes 1000mL at 75 mL/hr, IV Infusion, CONTINUOUS , Starting Sun09/08/20 at 0345, Until Discontinu ed, Routine [facility] acetaminoph en (TYLENOL) tablet 650 mg 09-08 08:33: 52 Yes 650mg 650 mg, Oral, Q6HPRN, Starting Sun09/08/20 at 0333, Until Discontinu ed, Routine, Pain (scale 4-6) [facility] docusate (COLACE) capsule 100 mg 09-08 08:33: 52 Yes 100mg 100 mg, Oral, QDAILYPRN, Starting Sun09/08/20 at 0333, Until Discontinu ed, Routine, Constipati on [facility] iohexol (OMNIPAQUE 350 BULK-100 mL) injection 100 mL 09-08 03:30: 00 09-08 03:30 :00 No [id number] 100mL 100 mL, Intravenou s, ONCE, 1 dose, Sun09/07/20 at 2230, Routine [facility] magnesium oxide 400 mg (241.3 mg magnesium) tablet 09-08 00:00: 00 Yes [id number] 400mg Take 1 tablet by mouth daily. [facility] topiramate 25 mg tablet 09-08 00:00: 00 Yes [id number] 25mg Take 1 tablet by mouth daily. [facility] magnesium oxide 400 mg (241.3 mg magnesium) tablet 09-08 00:00: 00 Yes [id number] 400mg Take 1 tablet by mouth daily. [facility] topiramate 25 mg tablet 09-08 00:00: 00 Yes [id number] 25mg Take 1 tablet by mouth daily. [facility] magnesium oxide 400 mg (241.3 mg magnesium) tablet 09-08 00:00: 00 Yes [id number] 400mg Take 1 tablet by mouth daily. [facility] topiramate 25 mg tablet 09-08 00:00: 00 Yes [id number] 25mg Take 1 tablet by mouth daily. [facility] magnesium oxide 400 mg (241.3 mg magnesium) tablet 09-08 00:00: 00 Yes [id number] 400mg Take 1 tablet by mouth daily. [facility] topiramate 25 mg tablet 09-08 00:00: 00 Yes [id number] 25mg Take 1 tablet by mouth daily. [facility] magnesium oxide 400 mg (241.3 mg magnesium) tablet 09-08 00:00: 00 Yes [id number] 400mg Take 1 tablet by mouth daily. [facility] topiramate 25 mg tablet 09-08 00:00: 00 Yes [id number] 25mg Take 1 tablet by mouth daily. [facility] magnesium oxide 400 mg (241.3 mg magnesium) tablet 09-08 00:00: 00 Yes [id number] 400mg Take 1 tablet by mouth daily. [facility] topiramate 25 mg tablet 09-08 00:00: 00 Yes [id number] 25mg Take 1 tablet by mouth daily. [facility] magnesium oxide 400 mg (241.3 mg magnesium) tablet 09-08 00:00: 00 Yes [id number] 400mg Take 1 tablet by mouth daily. [facility] topiramate 25 mg tablet 09-08 00:00: 00 Yes [id number] 25mg Take 1 tablet by mouth daily. [facility] magnesium oxide 400 mg (241.3 mg magnesium) tablet 09-08 00:00: 00 Yes [id number] 400mg Take 1 tablet by mouth daily. [facility] topiramate 25 mg tablet 09-08 00:00: 00 Yes [id number] 25mg Take 1 tablet by mouth daily. [facility] magnesium oxide 400 mg (241.3 mg magnesium) tablet 09-08 00:00: 00 Yes [id number] 400mg Take 1 tablet by mouth daily. [facility] topiramate 25 mg tablet 09-08 00:00: 00 Yes [id number] 25mg Take 1 tablet by mouth daily. [facility] magnesium oxide 400 mg (241.3 mg magnesium) tablet 09-08 00:00: 00 Yes [id number] 400mg Take 1 tablet by mouth daily. [facility] topiramate 25 mg tablet 09-08 00:00: 00 Yes [id number] 25mg Take 1 tablet by mouth daily. [facility] aspirin 81 mg chewable tablet 2019-06 00:00: 05-09 05:59 :00 No [id number] 81mg Take 1 tablet by mouth daily for 364 days. [facility] aspirin 81 mg chewable tablet 2019-06 00:00: 00 05-09 05:59 :00 No [id number] 81mg Take 1 tablet by mouth daily for 364 days. [facility] aspirin 81 mg chewable tablet 2019-06 00:00: 00 05-09 05:59 :00 No [id number] 81mg Take 1 tablet by mouth daily for 364 days. [facility] aspirin 81 mg chewable tablet 2019-06 00:00: 00 05-09 05:59 :00 No [id number] 81mg Take 1 tablet by mouth daily for 364 days. [facility] gadobenate dimeglumine (MULTIHANCE -15 mL) injection 12.06 mL 2019-06 01:45: 00 05-08 01:45 :00 No .2mL/kg 12.06 mL (0.2 mL/kg ?60.3 kg), Intravenou s, ONCE, 1 dose, Sun05/07/20 at 1945, Routine [facility] atorvastati n 40 mg tablet 2019-06 00:00: 00 08-07 05:59 :00 No [id number] 40mg Take 1 tablet by mouth at bedtime for 90 days. [facility] atorvastati n 40 mg tablet 2019-06 00:00: 00 08-07 05:59 :00 No [id number] 40mg Take 1 tablet by mouth at bedtime for 90 days. [facility] LORazepam (ATIVAN) tablet 1 mg 2019-06 16:30: 00 05-08 00:16 :00 No 1mg 1 mg, Oral, ONCE, 1 dose, Sun05/07/20 at 1030, Routine [facility] aspirin chewable tablet 81 mg 2019-06 15:00: 00 Yes 81mg 81 mg, Oral, DAILY, First dose on Sun05/07/20 at 0900, Until Discontinu ed, Routine [facility] atorvastati n (LIPITOR) tablet 40 mg 2019-06 03:00: 00 Yes 40mg 40 mg, Oral, QHS, First dose (after last modificati on) on Sun05/06/20 at 2100, Until Discontinu ed, [facility]ine [facility] Sliding Scale Insulin-Reg ular + Fsbg Testing 2019-06 22:30: 00 Yes Subcutaneo us, AC+HS, First dose on Sun05/06/20 at 1630, Until Discontinu ed, Routine [facility] LORazepam (ATIVAN) tablet 1 mg 2019-06 22:15: 00 05-06 23:54 :00 No 1mg 1 mg, Oral, ONCE, 1 dose, Sun05/06/20 at 1615, Routine [facility] Saline Bubble Study 2019-06 18:10: 47 Yes 6mL 6 mL, Injection, SEE-INSTRU CTIONS, Starting Sun05/06/20 at 1210, Until Discontinu ed, Routine [facility] Saline Bubble Study 2019-06 18:10: 44 Yes 6mL 6 mL, Injection, SEE-INSTRU CTIONS, Starting Lynda 05/06/20 at 1210, Until Discontinu ed, Routine [facility] pantoprazol e (PROTONIX) EC tablet 20 mg 2019-06 15:00: 00 Yes 20mg 20 mg, Oral, DAILY, First dose on Sun05/06/20 at 0900, Until Discontinu ed, Routine [facility] heparin (porcine) injection 5,000 Units 2019-06 14:00: 00 Yes 5000U 5,000 Units, Subcutaneo us, Q12H, First dose on Sun05/06/20 at 0800, Until Discontinu ed, Routine [facility] naproxen (NAPROSYN) tablet 500 mg 2019-06 14:00: 00 05-07 21:37 :08 No 500mg 500 mg, Oral, BID MEALS, First dose on Sun05/06/20 at 0800, Until Discontinu ed, Routine [facility] acetaminoph en (TYLENOL) tablet 325 mg 2019-06 09:28: 45 Yes 325mg 325 mg, Oral, Q6HPRN, Starting Sun05/06/20 at 0328, Until Discontinu ed, Routine, Pain (scale 1-3), Temp > 37.5 C [facility] ondansetron (ZOFRAN (PF)) injection 4 mg 2019-06 05:15: 00 05-06 04:21 :00 No 4mg 4 mg, Slow IV Push, ONCE, 1 dose, Sun05/05/20 at 2315, RUTH ANN [facility] FENTanyl PF (SUBLIMAZE (PF)) injection 25 mcg 2019-06 05:15: 00 05-06 04:21 :00 No 25ug 25 mcg, Slow IV Push, ONCE, 1 dose, Sun05/05/20 at 2315, STAT [facility] iohexol (OMNIPAQUE 350 BULK-100 mL) injection 100 mL 2019-06 03:45: 00 05-06 03:28 :00 No 100mL 100 mL, Intravenou s, ONCE, 1 dose, Sun05/05/20 at 2145, Routine [facility] NaCl 0.9% (NS) injection 5 mL 2019-06 03:05: 16 Yes 5mL 5 mL, Slow IV Push, PRN - SEE INSTRUCTIO NS, Starting Sun05/05/20 at 2105, Until Discontinu ed, 10 mL [facility] HYDROcodone -acetaminop hen (NORCO 5) 5-325 mg tablet 1 tablet 01-30 05:45: 00 01-30 04:45 :00 No 1{tbl} 1 tablet, Oral, ONCE, 1 dose, [facility] 01/30/19 at 0045, RUTH ANN [facility] traMADol 50 mg tablet 01-29 00:00: 00 Yes [id number] 50mg Take 1 tablet by mouth every 6 (six) hours as needed for Pain (scale 4-6). [facility] naproxen (NAPROSYN) 500 mg tablet 01-29 00:00: 00 Yes [id number] 9102 500mg Take 1 tablet by mouth 2 (two) times daily with meals. [facility] traMADol 50 mg tablet 01-29 00:00: 00 Yes [id number] 9102 50mg Take 1 tablet by mouth every 6 (six) hours as needed for Pain (scale 4-6). [facility] naproxen (NAPROSYN) 500 mg tablet 01-29 00:00: 00 Yes [id number] 9102 500mg Take 1 tablet by mouth 2 (two) times daily with meals. [facility] traMADol 50 mg tablet 01-29 00:00: 00 Yes [id number] 50mg Take 1 tablet by mouth every 6 (six) hours as needed for Pain (scale 4-6). [facility] naproxen (NAPROSYN) 500 mg tablet 01-29 00:00: 00 Yes [id number] 500mg Take 1 tablet by mouth 2 (two) times daily with meals. [facility] traMADol 50 mg tablet 01-29 00:00: 00 Yes [id number] 50mg Take 1 tablet by mouth every 6 (six) hours as needed for Pain (scale 4-6). [facility] naproxen (NAPROSYN) 500 mg tablet 01-29 00:00: 00 Yes [id number] 500mg Take 1 tablet by mouth 2 (two) times daily with meals. [facility] traMADol 50 mg tablet 01-29 00:00: 00 Yes [id number] 50mg Take 1 tablet by mouth every 6 (six) hours as needed for Pain (scale 4-6). [facility] naproxen (NAPROSYN) 500 mg tablet 01-29 00:00: 00 Yes [id number] 500mg Take 1 tablet by mouth 2 (two) times daily with meals. [facility] tra[facility] mg tablet 01-29 00:00: 00 Yes [id number] 50mg Take 1 tablet by mouth every 6 (six) hours as needed for Pain (scale 4-6). [facility] naproxen (NAPROSYN) 500 mg tablet 01-29 00:00: 00 Yes [id number] 500mg Take 1 tablet by mouth 2 (two) times daily with meals. [facility] traMADol 50 mg tablet 01-29 00:00: 00 Yes [id number] 9102 50mg Take 1 tablet by mouth every 6 (six) hours as needed for Pain (scale 4-6). [facility] naproxen (NAPROSYN) 500 mg tablet 01-29 00:00: 00 Yes [id number] 9102 500mg Take 1 tablet by mouth 2 (two) times daily with meals. [facility] traMADol 50 mg tablet 01-29 00:00: 00 Yes [id number] 9102 50mg Take 1 tablet by mouth every 6 (six) hours as needed for Pain (scale 4-6). [facility] naproxen (NAPROSYN) 500 mg tablet 01-29 00:00: 00 Yes [id number] 9102 500mg Take 1 tablet by mouth 2 (two) times daily with meals. [facility] traMADol 50 mg tablet 01-29 00:00: 00 Yes [id number] 9102 50mg Take 1 tablet by mouth every 6 (six) hours as needed for Pain (scale 4-6). [facility] naproxen (NAPROSYN) 500 mg tablet 01-29 00:00: 00 Yes [id number] 9102 500mg Take 1 tablet by mouth 2 (two) times daily with meals. [facility] traMADol 50 mg tablet 01-29 00:00: 00 Yes [id number] 9102 50mg Take 1 tablet by mouth every 6 (six) hours as needed for Pain (scale 4-6). [facility] naproxen (NAPROSYN) 500 mg tablet 01-29 00:00: 00 Yes [id number] 9102 500mg Take 1 tablet by mouth 2 (two) times daily with meals. [facility] traMADol 50 mg tablet 01-29 00:00: 00 Yes [id number] 9102 50mg Take 1 tablet by mouth every 6 (six) hours as needed for Pain (scale 4-6). [facility] naproxen (NAPROSYN) 500 mg tablet 01-29 00:00: 00 Yes [id number] 9102 500mg Take 1 tablet by mouth 2 (two) times daily with meals. [facility] traMADol 50 mg tablet 01-29 00:00: 00 Yes [id number] 9102 50mg Take 1 tablet by mouth every 6 (six) hours as needed for Pain (scale 4-6). [facility] naproxen (NAPROSYN) 500 mg tablet 01-29 00:00: 00 Yes [id number] 9102 500mg Take 1 tablet by mouth 2 (two) times daily with meals. [facility] traMADol 50 mg tablet 01-29 00:00: 00 09-08 00:00 :00 No [id number] 9102 50mg Take 1 tablet by mouth every 6 (six) hours as needed for Pain (scale 4-6). [facility] naproxen (NAPROSYN) 500 mg tablet 01-29 00:00: 00 09-08 00:00 :00 No [id number] 9102 500mg Take 1 tablet by mouth 2 (two) times daily with meals. [facility] Vital Signs Vital Name Observation Time Observation Value Comments Love an Systolic blood pressure 2023-01-18 13:58:00 155 mm[Hg] [facility] Diastolic blood pressure 2023-01-18 13:58:00 73 mm[Hg] [facility] Heart rate 2023-01-18 13:58:00 64 /min Mitzy [facility] Body height 2023-01-18 13:58:[address] [facility] Body weight 2023-01-18 13:58:00 52.663 kg [facility] BMI 2023-01-18 13:58:00 29.06 kg/m2 [facility] Systolic blood pressure 2020-09-08 16:24:00 110 mm[Hg] [facility] Diastolic blood pressure 2020-09-08 16:24:00 56 mm[Hg] [facility] Heart rate 2020-09-08 16:24:00 65 /min Unive [facility] Body temperature 2020-09-08 16:24:00 36.67 Teresa [facility] Respiratory rate 2020-09-08 16:24:00 16 /min [facility] Oxygen saturation in Arterial blood by Pulse oximetry 2020-09-08 16:24:00 96 /min [facility] Body height 2020-09-08 07:10:00 149.9 cm [facility] Body weight 2020-09-08 07:10:00 58.968 kg [facility] BMI 2020-09-08 07:10:00 26.26 kg/m2 [facility] Systolic blood pressure 2020-05-08 19:57:00 157 mm[Hg] [facility] Diastolic blood pressure 2020-05-08 19:57:00 82 mm[Hg] [facility] Heart rate 2020-05-08 19:57:00 81 /min Un[facility] Body temperature 2020-05-08 19:57:00 35.94 Teresa [facility] Respiratory rate 2020-05-08 19:57:00 16 /min [facility] Oxygen saturation in Arterial blood by Pulse oximetry 2020-05-08 19:57:00 97 /min [facility] Body height 2020-05-06 03:03:00 149.9 cm [facility] Body weight 2020-05-06 03:03:00 60.328 kg [facility] BMI 2020-05-06 03:03:00 26.86 kg/m2 [facility] Systolic blood pressure 2019-01-30 14:31:00 151 mm[Hg] [facility] Diastolic blood pressure 2019-01-30 14:31:00 74 mm[Hg] [facility] Heart rate 2019-01-30 14:28:00 65 /min [facility] Body height 2019-01-30 14:28:00 149.9 cm [facility] Body weight 2019-01-30 14:28:00 55.339 kg [facility] BMI 2019-01-30 14:28:00 24.64 kg/m2 [facility] Systolic blood pressure 2019-01-30 04:00:00 122 mm[Hg] [facility] Diastolic blood pressure 2019-01-30 04:00:00 54 mm[Hg] [facility] Heart rate 2019-01-30 04:00:00 75 /min [facility] Oxygen saturation in Arterial blood by Pulse oximetry 2019-01-30 04:00:00 94 /min [facility] Body temperature 2019-01-30 02:25:00 37 Teresa [facility] Body height 2019-01-30 02:15:00 149.9 cm [facility] Body weight 2019-01-30 02:15:00 55.339 kg [facility] BMI 2019-01-30 02:15:00 24.64 kg/m2 [facility] Procedures Procedure Date / Time Performed Performing Clinician Source MR KNEE RIGHT WO CONTRAST 2023-02-07 15:53:00 Ramiro Cadet [facility] XR KNEE <3 VW RIGHT 2023-01-18 14:13:30 Talia Cadet [facility] ASSIGNMENT OF BENEFITS 2023-01-18 13:40:08 Docto r Unassigned, [place] [facility] REFERRAL- REQUEST/RESPONSE 2023-01-05 05:01:00 Doctor Unassigned, [place] [facility] REFERRAL- REQUEST/RESPONSE 2022-12-22 05:01:00 Doctor Unassigned, [place] [facility] DUPLEX VENOUS LEGS BILATERAL - BY VASCULAR LAB 2020-09-08 16:46:19 [facility] 2020-09-08 09:32:00 Maral [facility] MAGNESIUM 2020-09-08 09:32:00 Maral [facility] BASIC METABOLIC PANEL (NA, K, CL, CO2, GLUCOSE, BUN, CREATININE, CA) 2020-09-08 09:32:00 Maral [facility] SEDIMENTATION RATE 2020-09-08 09:32:00 [facility] 2020-09-08 09:32:[address] [facility] CT STROKE ANGIOGRAM HEAD 2020-09-08 03:20:03 Virgie Luna [facility] CT STROKE ANGIOGRAM NECK 2020-09-08 03:20:03 Virgie Luna [facility] CT STROKE HEAD WO CONTRAST 2020-09-08 03:11:34 Virgie Luna [facility] TROPONIN I 2020-09-08 02:58:00 Virgie Luna [facility] THYROID STIMULATING HORMONE 2020-09-08 02:58:00 Maral [facility] BASIC METABOLIC PANEL (NA, K, CL, CO2, GLUCOSE, BUN, CREATININE, CA) 2020-09-08 02:58:00 Virgie Luna [facility] CBC WITHOUT DIFF 2020-09-08 02:58:00 Virgie Luna [facility] GLYCOSYLATED HEMOGLOBIN (A1C) 2020-09-08 02:58:00 Maral [facility] PROTHROMBIN TIME / INR 2020-09-08 02:58:00 Virgie Luna [facility] ACTIVATED PARTIAL THRMPLAS CHAGO 2020-09-08 02:58:00 Virgie Luna [facility] COVID-19 (ID NOW RAPID TESTING) 2020-09-08 02:58:00 Virgie Luna [facility] HB ECG ROUTINE & RHYTHM STRIP 2020-09-08 02:37:18 Virgie Luna [facility] POCT GLUCOSE (AUTOMATED) 2020-09-08 02:36:00 Doc tor Unassigned, [place] [facility] EMERGENCY SERVICES AGREEMENTS AND AUTHORIZATIONS 2020-09-07 05:01:00 Doctor Unassigned, [place] [facility] POCT GLUCOSE (AUTOMATED) 2020-05-08 15:37:00 Mark Kenyon [facility] POCT GLUCOSE (AUTOMATED) 2020-05-08 02:55:00 Mark Kenyon [facility] MR VENOGRAM HEAD W CONTRAST 2020-05-08 01:38:27 Maral regan [facility] MR STROKE BRAIN WO CONTRAST 2020-05-08 01:04:51 Maral regan [facility] POCT GLUCOSE (AUTOMATED) 2020-05-07 22:16:00 Mark Kenyon [facility] XR KUB 2020-05-07 18:49:29 Rashel Michelle [facility] XR BONE SURVEY 2020-05-07 18:47:38 Aletha Alicia [facility] POCT GLUCOSE (AUTOMATED) 2020-05-07 18:41:00 Mark Kenyon [facility] POCT GLUCOSE (AUTOMATED) 2020-05-07 14:04:00 Mark Kenyon [facility] MAGNESIUM 2020-05-07 11:24:00 Vic Roberto [facility] [facility] BASIC METABOLIC PANEL (NA, K, CL, CO2, GLUCOSE, BUN, CREATININE, CA) 2020-05-07 11:24:00 Vic Roberto [facility] CBC WITH DIFF 2020-05-07 11:24:00 Vic Roberto [facility] POCT GLUCOSE (AUTOMATED) 2020-05-07 04:20:00 Mark Kenyon [facility] POCT GLUCOSE (AUTOMATED) 2020-05-07 00:01:00 Mark Kenyon [facility] ECHO ROUTINE W/DOPPLER COLOR 2020-05-06 16:27:50 Vic Roberto [facility] MAGNESIUM 2020-05-06 10:08:00 Vic Roberto [facility] C-REACTIVE PROTEIN 2020-05-06 10:08:00 Vic Roberto [facility] BASIC METABOLIC PANEL (NA, K, CL, CO2, GLUCOSE, BUN, CREATININE, CA) 2020-05-06 10:08:00 Vic Roberto [facility] SEDIMENTATION RATE 2020-05-06 10:08:00 Vic Roberto [facility] CBC WITH DIFF 2020-05-06 10:08:00 Vic Roberto [facility] XR STROKE CHEST 1 VW 2020-05-06 03:38:20 Rizwana Kenyon i [facility] CT STROKE HEAD WO CONTRAST 2020-05-06 03:31:57 Ricardo Kenyon [facility] CT STROKE ANGIOGRAM HEAD 2020-05-06 03:31:57 Mark Kenyon [facility] CT STROKE ANGIOGRAM NECK 2020-05-06 03:31:57 Mark Kenyon [facility] HB CREATININE BLOOD 2020-05-06 03:11:00 Ricardo Kenyon [facility] TROPONIN I 2020-05-06 03:07:00 Ricardo Kenyon [facility] THYROID STIMULATING HORMONE 2020-05-06 03:07:00 Vic Roberto [facility] BASIC METABOLIC PANEL (NA, K, CL, CO2, GLUCOSE, BUN, CREATININE, CA) 2020-05-06 03:07:00 Ricardo Kenyon [facility] LIPID PANEL (07700)(TOTAL CHOLESTEROL, TRIGLYCERIDES, HDL) 2020-05-06 03:07[facility]FF 2020-05-06 03:07:00 Ricadro Kenyon [facility] GLYCOSYLATED HEMOGLOBIN (A1C) 2020-05-06 03:07:00 Vic Roberto [facility] PROTHROMBIN TIME / INR 2020-05-06 03:07:00 Carlos Kenyon [facility] ACTIVATED PARTIAL THRMPLAS CHAGO 2020-05-06 03:07:00 Ricardo Kenyon [facility] COVID-19 (ID NOW RAPID TESTING) 2020-05-06 03:07:00 Ricardo Kenyon [facility] LAB ONLY COVID INTERPRETATION 2020-05-06 03:07:00 Ricardo Kenyon [facility] HB ECG ROUTINE & RHYTHM STRIP 2020-05-06 03:01:09 Ricardo Kneyon [facility] EMERGENCY SERVICES AGREEMENTS AND AUTHORIZATIONS 2020-05-05 06:01:00 Doctor Unassigned, [place] [facility] HOSPITAL ADMISSION 2020-04-05 06:01:00 Doctor Un assigned, [place] [facility] MEDICATION CORRESPONDENCE 2019-08-11 05:01:00 Do ctor Unassigned, [place] [facility] XR KNEE <3 VW LEFT 2019-01-30 04:40:52 Yasmani Dee [facility] Encounters Start Date/Time End Date/Time Encounter Type Admission Type Attending Clinicians Care Facility Care Department Encounter ID Source 2021-04-03 11:10:14 Emergency [facility] [id number] [facility] 2023-04-02 00:00:00 2023-04-02 00:00:00 Outpatient [id number] [email or web address] [facility] [id number] [facility] 2023-02-14 00:00:00 2023-02-14 00:00:00 Outpatient R ELISHA VENTURA [facility] [id number] [facility] 2023-02-07 09:39:52 2023-02-07 23:59:00 Outpatient R RAMIRO CADET CRAIG [facility] [id number] [facility] 2023-02-07 09:39:52 2023-02-07 23:59:00 Hospital Encounter Ramiro Cadet [facility] 1.2.840.114 350.1.13.10 4.2.7.2.686 [id number] [facility] 2023-02-02 00:00:00 2023-02-02 00:00:00 Outpatient R RAMIRO CADET [facility] [id number] [facility] 2023-01-25 00:00:00 2023-01-25 00:00:00 Telephone Ramiro Cadet [facility] 1.2.840.114 350.1.13.10 4.2.7.2.686 [id number] [facility] 2023-01-18 09:00:00 2023-01-18 23:59:00 Outpatient R RAMIRO CADET [facility] [id number] [facility] 2023-01-18 09:00:00 2023-01-18 23:59:00 Hospital Encounter Ramiro Cadet [facility] 1.2840.114 350.1.13.10 4.2.7.2.686 [id number] [facility] 2023-01-18 09:00:00 2023-01-18 09:21:25 Office Visit Ramiro Cadet [facility] 1.2840.114 350.1.13.10 4.2.7.2.686 [id number] [facility] 2023-01-18 00:00:00 2023-01-18 00:00:00 Orders Only Doctor Unassigned, [place] [facility] 1.2840.114 350.1.13.10 4.2.7.2.686 [id number] [facility] 2023-01-05 00:00:00 2023-01-05 00:00:00 Orders Only Doctor Unassigned, [place] [facility] 1.2840.114 350.1.13.10 4.2.7.2.686 [id number] [facility] 2022-12-22 00:00:00 2022-12-22 00:00:00 Orders Only Doctor Unassigned, [place] [facility] 1.2840.114 350.1.13.10 4.2.7.2.686 [id number] [facility] 2020-09-09 00:00:00 2020-09-09 00:00:00 Transition of Care Elda Norman 1.2840.114 350.1.13.10 4.2.7.2.686 [id number] [facility] 2020-09-07 21:32:00 2020-09-08 18:23:00 Emergency Virgie Luna [facility]r a [facility] 1.840.114 350.1.13.10 4.2.7.2.686 [id number] [facility] 2020-06-29 09:30:00 2020-06-29 09:30:00 Outpatient TAMMI MICHEL [facility] [id number] [facility] 2020-06-01 11:00:00 2020-06-01 11:00:00 Outpatient TAMMI MICHEL [facility] [id number] [facility] 2020-06-01 11:00:00 2020-06-01 11:00:00 Outpatient TAMMI MICHEL [facility] [id number] [facility] 2020-05-10 00:00:00 2020-05-10 00:00:00 Transition of Care Elda Norman 1.840.114 350.1.13.10 4.2.7.2.686 [id number] [facility] 2020-05-05 21:00:00 2020-05-08 14:30:00 Inpatient JUAN LUIS OG [facility] DAVID [id number] [facility] 2020-05-05 21:00:00 2020-05-08 14:30:00 Hospital Encounter YarimaRiacrdo Todd Love Lynne [facility] 1.2.840.114 350.1.13.10 4.2.7.2.686 [id number] [facility] 2020-04-05 00:00:00 2020-04-05 00:00:00 Orders Only Doctor Unassigned, [place] [facility] 1.2.840.114 350.1.13.10 4.2.7.2.686 [id number] [facility] 2019-09-22 00:00:00 2019-09-22 00:00:00 Telephone Nurse, [facility] General Surgery [facility] 1.2.840.114 350.1.13.10 4.2.7.2.686 [id number] [facility] 2019-09-20 00:00:00 2019-09-20 00:00:00 Telephone Soham Schutlz [facility] 1.2.840.114 350.1.13.10 4.2.7.2.686 [id number] [facility] 2019-09-18 16:14:20 2019-09-18 16:29:20 Nurse Visit Nurse, [facility] General Surgery Soham Schultz [facility] 1.2.840.114 350.1.13.10 4.2.7.2.686 [id number] [facility] 2019-09-18 16:15:00 2019-09-18 16:15:00 Outpatient R SOHAM SCHULTZ [facility] [id number] [facility] 2019-09-18 00:00:00 2019-09-18 00:00:00 Telephone Soham Schultz [facility] 1.2.840.114 350.1.13.10 4.2.7.2.686 [id number] [facility] 2019-08-11 00:00:00 2019-08-11 00:00:00 Orders Only Doctor Unassigned, [place] [facility] 1.2.840.114 350.1.13.10 4.2.7.2.686 [id number] [facility] 2019-01-30 09:24:42 2019-01-30 10:24:58 Office Visit Andres Avendaño [facility] 1.2.840.114 350.1.13.10 4.2.7.2.686 [id number] [facility] 2019-01-29 21:12:31 2019-01-30 00:31:00 Emergency Ros Puckett [facility] 1.2.840.114 350.1.13.10 4.2.7.2.686 [id number] [facility] 2019-01-29 22:00:00 2019-01-29 23:59:00 Hospital Encounter Alphonso Herbert, [facility] 1.2.840.114 350.1.13.10 4.2.7.2.686 [id number] [facility] Results Test Description Test Time Test Comments Results Result Co mments Source [facility] (Na, K, Cl, CO2, Glucose, BUN, Creatinine, Ca)2020-09-08 10:28:17* Test Item Value Reference Range Interpretation Comme nts NA (test code = 1544284865) 137 mmol/L 135-145 K (test code = 4812430828) 3.8 mmol/L 3.5-5.0 Slight hemolysis CL (test code = 1194071492) 106 mmol/L 98-108 CO2 TOTAL (test code = 7578563374) 25 mmol/L 23-31 AGAP (test code = 7092422322) 2-16 BUN (test code = 5067438588) 13 mg/dL 7-23 Slight hemolysis GLUCOSE (test code = 9756833505) 106 mg/dL 70-110 CREATININE (test code = 8789582663) 0.60 mg/dL 0.50-1.04 CALCIUM (test code = 9503509949) 8.2 mg/dL 8.6-10.6 L eGFR (test code = 0856028640) mL/min/1.73m2 MELO (test code = MELO) Association of [...] or abnormalities in imaging tests). Lab Interpretation (test code = 18849-2) Abnormal [facility] CenterMagnesium [id number] 10:28:17* Test Item Value Reference Range Interpretation Comme nts MAGNESIUM (test code = 7211869370) 2.0 mg/dL 1.7-2.4 Lab Interpretation (test cod e = 01268-9) Normal [facility] CenterPhosphorus [id number] 10:28:17* Test Item Value Reference Range Interpretation Comme nts PHOSPHORUS (test code = 9686816221) 3.8 mg/dL 2.5-5.0 Lab Interpretation (test cod e = 06414-2) Normal [facility] CenterThyroid Stimulating [id number] 10:09:55 * Test Item Value Reference Range Interpretation Comme nts TSH (test code = 2452829406) See_Comment Biotin has been reported to cause a negative bias, interpret results relative to patient's use of biotin. [Automated message] The system which generated this result transmitted reference range: 0.45 - 4.70 mIU/L. The reference range was not used to interpret this result as normal/abnormal. Lab Interpretation (test code = 46992-5) Normal [facility] CenterGLYCOSYLATED HEMOGLOBIN (A1C)2020-09-08 09:56:02* Test Item Value Reference Range Interpretation Comme nts HGB A1C (test code = 4548-4) 5.9 % 4.0-6.0 MELO (test code = MELO) %A1C (NGSP) Interpretation (ADA)4.8-5.6 ? ? Normal or (Non-Diabetic Range)5.7-6.4 ? ? Increased Risk (Pre-Diabetic)>6.5 ?Diabetes Indicated Lab Interpretation (test code = 39664-1) Normal [facility] Center[facility] with [id number] 09:53:50* Test Item Value Reference Range Interpretation Comme nts WBC (test code = 6690-2) See_Comment [Automated [employer] ge] The system which generated this result transmitted reference range: 4.30 - 11.10 10*3/?L. The reference range was not used to interpret this result as normal/abnormal. RBC (test code = 789-8) See_Comment [Automated [employer]] The system which generated this result transmitted reference range: 3.93 - 5.25 10*6/?L. The reference range was not used to interpret this result as normal/abnormal. HGB (test code = 718-7) 12.7 g/dL 11.6-15.0 HCT (test code = 4544-3) 37.5 % 35.7-45.2 MCV (test code = 787-2) 88.4 fL 80.6-95.5 MCH (test code = 785-6) 30.0 pg 25.9-32.8 MCHC (test code = 786-4) 33.9 g/dL 31.6-35.1 RDW-SD (test code = 77831-7) 41.1 fL 39.0-49.9 RDW-CV (test code = 788-0) 12.7 % 12.0-15.5 PLT (test code = 777-3) See_Comment [Automated messa ge] The system which generated this result transmitted reference range: 166 - 358 10*3/?L. The reference range was not used to interpret this result as normal/abnormal. MPV (test code = 23956-5) 10.2 fL 9.5-12.9 NRBC/100 WBC (test code = 6433543494) See_Comment [Automated me ssage] The system which generated this result transmitted reference range: 0.0 - 10.0 /100 WBCs. The reference range was not used to interpret this result as normal/abnormal. NRBC x10^3 (test code = 1457308504) <0.01 See_Comment [Automated me ssage] The system which generated this result transmitted reference range: 10*3/?L. The reference range was not used to interpret this result as normal/abnormal. GRAN MAT (NEUT) % (test code = 770-8) 53.8 % IMM GRAN % (test code = 9234607880) 0.30 % LYMPH % (test code = 736-9) 35.7 % MONO % (test code = 5905-5) 8.0 % EOS % (test code = 713-8) 1.4 % BASO % (test code = 706-2) 0.8 % GRAN MAT x10^3(ANC) (test code = 3818672266) 3.36 10*3/uL 1.88-7.09 IMM GRAN x10^3 (test code = 8144588542) <0.03 0.00-0.06 LYMPH x10^3 (test code = 731-0) 2.23 10*3/uL 1.32-3.29 MONO x10^3 (test code = 742-7) 0.50 10*3/uL 0.33-0.92 EOS x10^3 (test code = 711-2) 0.09 10*3/uL 0.03-0.39 BASO x10^3 (test code = 704-7) 0.05 10*3/uL 0.01-0.07 [facility] Center[facility] ACUTE STROKE ANGIOGRAM [id number] 04:03:20No high-grade occlusion/stenosis, dissection, or aneurysm of theintracranial and extracranial arteries. Preliminary Report Dictated by Resident: Aletha Poole I, Brett Rodarte MD., have reviewed this study and agree with the abovereport.EXAM: CT STROKE ANGIOGRAM HEAD, CT STROKE ANGIOGRAM NECK HISTORY: ?Acute Stroke Rad: please obtain POCT creatinine prior to CTAhead/neck TECHNIQUE: Axial CT imaging of the [place] and from the skull baseto the superior mediastinum was obtained during arterial phase after theintravenous administration of IV contrast. Coronal, sagittal, and MIPS wereconstructed. COMPARISON: Same day CT head CTA HEAD: The PICA origin is visualized bilaterally. The basilar artery is normal incaliber. The superior cerebellar arteries are patent. 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 Nosizable posterior communicating a rteries visualized. The distal cervical, petrous, cavernous and supraclinoid internal carotidarteries are patent. The anterior and middle cerebral arteries are patent. An anteriorcommunicating arteryis visualized. CTA NECK: Aortic arch and arch vessel origins: Four-vessel branching anatomy of theaortic arch with left vertebral artery arising from the aortic arch. Mildaortic arch atherosclerotic calcifications. The proximal course of the leftvertebral and left common carotid arteries is tortuous. Innominate and subclavian arteries: The innominate and subclavian arteriesare widely patent. Common carotids: The cervical, common carotid, carotid bulbs, internal, andintracranial carotid artery segments are patent bilaterally withoutflow-limiting stenosis. Mild calcified plaque affect the left carotid bulbwith no flow-limiting stenosis. Vertebral arteries: The vertebral arteries are codominant. The vertebralarteries are patent without flow-limiting stenosis from its origin andthrough their v ertebral and intradural segments. Cervical soft tissues: Grossly unremarkable. Lung apices: The visualized lung noguera are clear. Cervical spine: A well- defined sclerotic focus in C7 vertebral body, likelya bony island. [facility], Radiant Results Inft User - 09/07/2020 11:04 PM CDTEXAM: CT STROKE ANGIOGRAM HEAD, CT STROKE ANGIOGRAM NECKHISTORY: Acute Stroke Rad: please obtain POCT creatinine prior to CTAhead/neckTECHNIQUE: Axial CT imaging of the [place] and from the skull baseto the superior mediastinum was obtained during arterial phase after theintravenous administration of IV contrast. Coronal, sagittal, and MIPS wereconstructed.COMPARISON: Same day CT headCTA HEAD:The PICA origin is visualized bilaterally. The basilar artery is normal incaliber. The superior cerebellar arteries are patent. 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 Nosizable posterior communicating arteries visualized.The distal cervical, petrous, cavernous and supraclinoid internal carotidarteries are patent. The anterior and middle cerebral arteries are patent.An anteriorcommunicating artery is visualized.CTA NECK:Aortic arch and [...] Mild calcified plaque affect the left carotid bulbwith no flow-limiting stenosis.Vertebral arteries: The vertebral arteries are codominant. The vertebralarteries are patent without flow-limiting stenosis from its origin andthrough their vertebral and intradural segments.Cervical soft tissues: Grossly unremarkable. Lung apices: The visualized lung noguera are clear.Cervical spine: A well-defined sclerotic focus in C7 vertebral body, likelya bony island.IMPRESSIONNo high-grade occlusion/stenosis, dissection,or aneurysm of theintracranial and extracranial arteries.Preliminary Report Dictated by Resident: Brett Miguel MD., have reviewed this study and agree with the abovereport.[facility] STRO[facility] ANGIOGRAM [id number] 04:03:20No high-grade occlusion/stenosis, dissection, or aneurysm of theintracranial and extracranial arteries. Preliminary Report Dictated by Resident: Brett Dunn MD., have reviewed this study and agree with the abovereport.EXAM: CT STROKE ANGIOGRAM HEAD, CT STROKE ANGIOGRAM NECK HISTORY: ?Acute Stroke Rad: please obtain POCT creatinine prior to CTAhead/neck TECHNIQUE: Axial CT imaging of the [place] and from the skull baseto the superior mediastinum was obtained during arterial phase after theintravenous administration of IV contrast. Coronal, sagittal, and MIPS wereconstructed. COMPARISON: Same day CT head CTA HEAD: The PICA origin is visualized bilaterally. The basilar artery is normal incaliber. The superior cerebellar arteries are patent. 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 Nosizable posterior communicating a rteries visualized. The distal cervical, petrous, cavernous and supraclinoid internal carotidarteries are patent. The anterior and middle cerebral arteries are patent. An anteriorcommunicating arteryis visualized. CTA NECK: Aortic arch and arch vessel origins: Four-vessel branching anatomy of theaortic arch with left vertebral artery arising from the aortic arch. Mildaortic arch atherosclerotic calcifications. The proximal course of the leftvertebral and left common carotid arteries is tortuous. Innominate and subclavian arteries: The innominate and subclavian arteriesare widely patent. Common carotids: The cervical, common carotid, carotid bulbs, internal, andintracranial carotid artery segments are patent bilaterally withoutflow-limiting stenosis. Mild calcified plaque affect the left carotid bulbwith no flow-limiting stenosis. Vertebral arteries: The vertebral arteries are codominant. The vertebralarteries are patent without flow-limiting stenosis from its origin andthrough their v ertebral and intradural segments. Cervical soft tissues: Grossly unremarkable. Lung apices: The visualized lung noguera are clear. Cervical spine: A well- defined sclerotic focus in C7 vertebral body, likelya bony island. [facility], Radiant Results Inft User - 09/07/2020 11:04 PM CDTEXAM: CT STROKE ANGIOGRAM HEAD, CT STROKE ANGIOGRAM NECKHISTORY: Acute Stroke Rad: please obtain POCT creatinine prior to CTAhead/neckTECHNIQUE: Axial CT imaging of the [place] and from the skull baseto the superior mediastinum was obtained during arterial phase after theintravenous administration of IV contrast. Coronal, sagittal, and MIPS wereconstructed.COMPARISON: Same day CT headCTA HEAD:The PICA origin is visualized bilaterally. The basilar artery is normal incaliber. The superior cerebellar arteries are patent. 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 Nosizable posterior communicating arteries visualized.The distal cervical, petrous, cavernous and supraclinoid internal carotidarteries are patent. The anterior and middle cerebral arteries are patent.An anteriorcommunicating artery is visualized.CTA NECK:Aortic arch and [...] Mild calcified plaque affect the left carotid bulbwith no flow-limiting stenosis.Vertebral arteries: The vertebral arteries are codominant. The vertebralarteries are patent without flow-limiting stenosis from its origin andthrough their vertebral and intradural segments.Cervical soft tissues: Grossly unremarkable. Lung apices: The visualized lung noguera are clear.Cervical spine: A well-defined sclerotic focus in C7 vertebral body, likelya bony island.IMPRESSIONNo high-grade occlusion/stenosis, dissection,or aneurysm of theintracranial and extracranial arteries.Preliminary Report Dictated by Resident: Brett Miguel MD., have reviewed this study and agree with the abovereport.[facility] I - Code Stroke 2020-09-08 03:26:09* Test Item Value Reference Range Interpretation Comme nts TROPONIN I (test code = 4908220497) 0.001 ng/mL See_Comment [Automated message] The system which generated this result transmitted reference range: <=0.034. The reference range was not used to interpret this result as normal/abnormal. MELO (test code = MELO) Equal or Less than 0.034 ng/ml---Normal ?Note: Cardiac troponin begins to [...] patient's use of biotin. ? Lab Interpretation (test code = 56005-8) Normal [facility] CenterCOVID-19 (ID NOW RAPID TESTING)2020-09-08 03:18:06* Test Item Value Reference Range Interpretation Comme nts SARS-CoV-2 Rapid ID NOW (test code = 81100-5) Not Detected Not Detected MELO (test code = MELO) ID NOW COVID-19 As say is an isothermal nucleic acid amplification test intended for the qualitative detection of nucleic acid from SARS-CoV-2 viral RNA in nasopharyngeal (REPAIR CAMERAMAN) specimens. It is used under Emergency Use [...] patient testing if clinically indicated. Lab Interpretation (test code = 39776-9) Normal [facility] Center[facility] ACUTE STROKE HEAD WO [id number] 03:16:40No acute intracranial abnormality.EXAM: CT STROKE HEAD WO [...] The calvariumand central skull base are unremarkable. [facility], Radiant Results Inft User - 09/07/2020 10:17 PM CDTEXAM: CT STROKE HEAD WO CONTRASTHISTORY: Neuro deficit, acute, stroke suspected TECHNIQUE: CT head was performed without intravenous contrast. Sagittal andcoronal reformats were generated.COMPARISON: None.FINDINGS: The ventricles and sulci are normal in caliber and configuration. Nohydrocephalus, midline shift or pathologicalextra-axial fluid collectionis present. The basal cisterns are unremarkable.There is no acute intracranial hemorrhage or significant mass effect. Noparenchymal attenuation abnormality. The waddell-whitematter differentiationis preserved.The mastoid air cells and paranasal air sinuses are clear. The calvariumand central skull base are unremarkable.IMPRESSIONNo acute intracranial abnormality.[facility] CenterBasaint elizabeth edgewood Metabolic Panel (NA, K, CL, CO2, Glucose, BUN, Creatinine, CA) - Code [id number] 03:14:45 * Test Item Value Reference Range Interpretation Comme nts NA (test code = 5237241061) 140 mmol/L 135-145 K (test code = 1557032994) 3.9 mmol/L 3.5-5.0 CL (test code = 0833268713) 105 mmol/L 98-108 CO2 TOTAL (test code = 0697435936) 26 mmol/L 23-31 AGAP (test code = 2432581349) 2-16 BUN (test code = 1402745402) 16 mg/dL 7-23 GLUCOSE (test code = 0783538632) 149 mg/dL 70-110 H CREATININE (test code = 6503432692) 0.70 mg/dL 0.50-1.04 CALCIUM (test code = 3199438848) 9.5 mg/dL 8.6-10.6 eGFR (test code = 6479160760) mL/min/1.73m2 MELO (test code = MELO) Association of [...] or abnormalities in imaging tests). Lab Interpretation (test code = 90991-5) [facility]normal [facility] - Code [id number] 03:13:43* Test Item Value Reference Range Interpretation Comme [facility] APTT Patient (test code = 3173-2) See_Comment [Automated message] The system which generated this result transmitted reference range: 23 - 38 Seconds. The reference range was not used to interpret this result as normal/abnormal. MELO (test code = MELO) The [facility] patient population mean normal value for aPTT is 30 seconds. Lab Interpretation (test code = 60788-0) Normal [facility] CenterProthrombin Time / INR - Code [id number] 03:11:41* Test Item Value Reference Range Interpretation Comme [facility] PROTIME PATIENT (test code = 5964-2) See_Comment [Automated [employer]] The system which generated this result transmitted reference range: 12.0 - 14.7 Seconds. The reference range was not used to interpret this result as normal/abnormal. INR (test code = 6301-6) Normal INR <1.1; Warfarin Therapeutic range 2.0 to 3.0 or 2.5 to 3.5, depending upon the indications. Lab Interpretation (test code = 78811-8) Normal [facility] without Diff - Code [id number] 03:04:23* Test Item Value Reference Range Interpretation Comme nts WBC (test code = 6690-2) See_Comment [Automated [employer] ge] The system which generated this result transmitted reference range: 4.30 - 11.10 10*3/?L. The reference range was not used to interpret this result as normal/abnormal. RBC (test code = 789-8) See_Comment [Automated [employer] ge] The system which generated this result transmitted reference range: 3.93 - 5.25 10*6/?L. The reference range was not used to interpret this result as normal/abnormal. HGB (test code = 718-7) 13.9 g/dL 11.6-15.0 HCT (test code = 4544-3) 40.6 % 35.7-45.2 MCH (test code = 785-6) 30.2 pg 25.9-32.8 MCV (test code = 787-2) 88.1 fL 80.6-95.5 MCHC (test code = 786-4) 34.2 g/dL 31.6-35.1 PLT (test code = 777-3) See_Comment [Automated [employer] ge] The system which generated this result transmitted reference range: 166 - 358 10*3/?L. The reference range was not used to interpret this result as normal/abnormal. MPV (test code = 52683-5) 10.6 fL 9.5-12.9 RDW-CV (test code = 788-0) 12.4 % 12.0-15.5 RDW-SD (test code = 72015-4) 39.4 fL 39.0-49.9 NRBC x10^3 (test code = 3967192684) <0.01 See_Comment [Automated [employer] ssage] The system which generated this result transmitted reference range: 10*3/?L. The reference range was not used to interpret this result as normal/abnormal. NRBC/100 WBC (test code = 4316295261) See_Comment [Automated me ssage] The system which generated this result transmitted reference range: 0.0 - 10.0 /100 WBCs. The reference range was not used to interpret this result as normal/abnormal. IPF % (test code = 6290684552) [facility] GLUCOSE (AUTOMATED)2020-09-08 02:42:06* Test Item Value Reference Range Interpretation Comme nts POCT GLU (test code = 3714337283) 139 mg/dL 70-110 H Lab Interpretation (test cod e = 28369-7) Abnormal [facility] GLUCOSE (AUTOMATED)2020-05-08 15:40:00* Test Item Value Reference Range Interpretation Comme nts POCT GLU (test code = 5600410377) 290 mg/dL 70-110 H Lab Interpretation (test cod e = 03390-5) Abnormal [facility] GLUCOSE (AUTOMATED)2020-05-08 03:01:00* Test Item Value Reference Range Interpretation Comme nts POCT GLU (test code = 4675128563) 118 mg/dL 70-110 H Lab Interpretation (test cod e = 59492-1) Abnormal [facility] VENOGRAM HEAD W [id number] 01:58:40 Patent dural sinuses. EXAMINATION: MR VENOGRAM HEAD W CONTRAST HISTORY: Recurrent slurred speech and vertigo COMPARISON: None. TECHNIQUE: Time of flight MR venogram was performed of the majorintracranial venous sinuses with 3D reconstructions. FINDINGS: Superior sagittal sinus, straight sinus, bilateral transverse and sigmoidsinuses are grossly patent. Hypoplastic left transverse and sigmoidsinuses. [facility], Radiant Results Inft User - 05/07/2020 7:59 PM CSTEXAMINATION: MR VENOGRAM HEAD W CONTRASTHISTORY: Recurrent slurred speech and vertigo COMPARISON: None.TECHNIQUE: Time of flight MR venogramwas performed of the majorintracranial venous sinuses with 3D reconstructions.FINDINGS:Superior sagittal sinus, straight sinus, bilateral transverse and sigmoidsinuses are grossly patent. Hypoplasticleft transverse and sigmoidsinuses. IMPRESSIONPatent dural sinuses.[facility] STROKE BRAIN WO CONTRAST 2020-05-08 01:52:53No acute intracranial abnormality. EXAMINATION: MR STROKE BRAIN WO CONTRAST HISTORY: Recurrent slurred speech and vertigo S/SX, Dx: Recurrent slurredspeech and vertigo COMPARISON: ?05/05/[address] TECHNIQUE: Multiplanar and multisequence MRI imaging of the brain wasobtained without contrast. FINDINGS: There are foci of increased T2/FLAIR signal in the white matter which arenonspecific but likelysequelae of chronic ischemia, mild in extent.No intracranial hemorrhage or mass. The ventricles, sulci and cisterns are normal in size and symmetric. No acute infarct. The calvarium is normal. ?The orbits are unremarkable. The paranasalsinuses are essentially clear. [facility], Radiant Results Inft User - 05/07/2020 7:57 [...] or mass. The ventricles, sulci and cisterns a re normal in size and symmetric. No acute infarct. The calvarium is normal. The orbits are unremarkable. The paranasalsinuses are essentially clear. IMPRESSIONNo acute intracranial abnormality.[facility] LAB ONLY COVID [id number] 00:13:00COVID DMT InterpretationInterpretation/Recommendations: Molecular NAAT Tests for Active Infection with the SARS-CoV-2 Virus: This patient has tested negative on two occasions for the SARS-CoV-2 virusthat causes COVID-19 illness. This most likely indicates that the patient does not have an active infection with the SARS-CoV-2 virus, especially if these tests coincide with the patient's current pre sentation. However, infection is not completely ruled out as the false negative rate for molecular NAAT testing using a nasopharyngeal sample can be up to 30%, mostly dependent on the timing of sample collection in relation to illness onset and any deficiencies in sampling techniques. If the patient continues to have persistent or worsening symptoms concerning [...] of antibodies - specifically IgG antibodies - indicateswhether the patient is immune to future infections with the SARS-CoV-2 virus. Interpretation Result Comments: These interpretation comments are based upon aggregate COVID-19 test results pooled from [facility]. They apply to the following tests offered at [facility] and assume the acceptable specimen type(s) were used: A. Tests for the I dentification of SARS-CoV-2 RNA (Molecular NAAT Tests): ?- SARS-CoV-2 PCR assays including Parrott Aptima, Parrott Fusion, Nicole RealTime, and PolicyGenius Xpert Xpress. ?- SARS-CoV-2 Rapid ID NOW by the ID NOW assay. ? B. Tests for the Identification of SARS-CoV-2 Antibodies: ?- Chemiluminescent immunoassays including Access SARS-CoV-2 IgM (DXI 600), BillMyParentsS Kfrh-ETPR-HmC-2 IgG (Vitros 5600 and Vitros 3600), and Nicole SARS-CoV-2 IgG (GUNSMITH APPRENTICE I System). These interpretations areautopopulated into [facility] based on computerized algorithms matching an interpretation code to the patient's set of test results, and a clinical pathologist evaluates the comments for accuracy. However,these comments do not consider testing a patient may have had outside of the [facility] system. If results for COVID-19 infection continue to be negative in the context of a suspected viral respiratory illness, it is possible the patient may have an infection with another respiratory virus. Influenza testing and a respiratory pathogen panel if clinically indicated may be beneficial in this setting. If t here continues to be a high degree of clinical suspicion for COVID-19 illness despite multiple negative tests on nasopharyngeal specimens, then it may be necessary to test the patient for the SARS-CoV-2 virus using lower respiratory tract samples (such as sputum, bronchoalveolar lavage fluid (BAL),tracheal aspirate, etc.). ? [facility] LABORATORY SERVICESCOVID GolcgubQHEG-NvU-9 NAAT (no units) ? ? Date ? Value ? 09/18/2019 ? Not Detected ? SARS-CoV-2 Rapid ID NOW (no units) ? ? Date ? Value ? 05/05/2020 ?Not Detected ? [facility] LABORATORY SERVICESUnKnapp Medical CenterPOCT GLUCOSE (AUTOMATED)2020-05-07 22:19:00* Test Item Value Reference Range Interpretation Comme nts POCT GLU (test code = 3486947356) 140 mg/dL 70-110 H Lab Interpretation (test cod e = 08299-9) Abnormal [facility] CenterXR [id number] 20:59:37Nonobstructive bowel gas pattern. Preliminary Report Dictated by [...] in the mid abdomen and a 0.7 cmcalcificationprojecting to the right of L5 may represent a phlebolith or small bowelcontents. No abnormal calcifications or radiopaque stones are identified. No acute bony abnormalities are noted. Degenerative changes affect thelower lumbar spine. [facility], Radiant Results Inft User - 05/07/2020 3:00 [...] reviewed this study and agree with theabove report.[facility] CenterXR BONE [id number] 18:59:511. ?No radiographic evidence of osseous metastatic disease. [...] No radiographic evidence of osseous metastatic disease.RL: [facility] 18:59:00* Test Item Value Reference Range Interpretation Comme nts POCT GLU (test code = 7291773433) 96 mg/dL 70-110 Lab Interpretation (test cod e = 00265-8) Normal [facility] GLUCOSE (AUTOMATED)2020-05-07 14:20:00* Test Item Value Reference Range Interpretation Comme nts POCT GLU (test code = 6961959085) 122 mg/dL 70-110 H Lab Interpretation (test cod e = 21551-2) [facility] (Na, K, Cl, CO2, Glucose, BUN, Creatinine, Ca)2020-05-07 12:08:00* Test Item Value Reference Range Interpretation Comme nts NA (test code = 9238647522) 137 mmol/L 135-145 K (test code = 0060506532) 4.4 mmol/L 3.5-5 CL (test code = 1496182282) 106 mmol/L 98-108 CO2 TOTAL (test code = 2192444000) 27 mmol/L 23-31 AGAP (test code = 5436006900) 2-16 BUN (test code = 0227776198) 22 mg/dL 7-23 GLUCOSE (test code = 8945387028) 108 mg/dL 70-110 CREATININE (test code = 6537880122) 0.67 mg/dL 0.5-1.04 CALCIUM (test code = 7424231811) 8.7 mg/dL 8.6-10.6 eGFR Calculation (Non-) (test code = 8493005338) mL/min/1.73m2 eGFR Calculation () (test code = 3906129632) mL/min/1.73m2 MELO (test code = MELO) Association of [...] or urine or abnormalities in imaging tests). [facility] CenterMagensium, [id number] 12:08:00* Test Item Value Reference Range Interpretation Comme nts MAGNESIUM (test code = 3433896431) 2.2 mg/dL 1.7-2.4 Lab Interpretation (test cod e = 10581-0) Normal [facility] with Uvsfnerkqgzr1787-06-54 11:43:00* Test Item Value Reference Range Interpretation Comme nts WBC (test code = 6690-2) See_Comment [Automated [employer] ge] The system which generated this result transmitted reference range: 4.30 - 11.10 10*3/?L. The reference range was not used to interpret this result as normal/abnormal. RBC (test code = 789-8) See_Comment [Automated messa ge] The system which generated this result transmitted reference range: 3.93 - 5.25 10*6/?L. The reference range was not used to interpret this result as normal/abnormal. HGB (test code = 718-7) 13.2 g/dL 11.6-15 HCT (test code = 4544-3) 39.8 % 35.7-45.2 MCV (test code = 787-2) 89.8 fL 80.6-95.5 MCH (test code = 785-6) 29.8 pg 25.9-32.8 MCHC (test code = 786-4) 33.2 g/dL 31.6-35.1 RDW-SD (test code = 58643-0) 41.3 fL 39-49.9 RDW-CV (test code = 788-0) 12.5 % 12-15.5 PLT (test code = 777-3) See_Comment [Automated messa ge] The system which generated this result transmitted reference range: 166 - 358 10*3/?L. The reference range was not used to interpret this result as normal/abnormal. MPV (test code = 09818-6) 10.6 fL 9.5-12.9 NRBC/100 WBC (test code = 3489137048) See_Comment [Automated [employer] ssage] The system which generated this result transmitted reference range: 0.0 - 10.0 /100 WBCs. The reference range was not used to interpret this result as normal/abnormal. NRBC x10^3 (test code = 6524124237) <0.01 See_Comment [Automated me ssage] The system which generated this result transmitted reference range: 10*3/?L. The reference range was not used to interpret this result as normal/abnormal. GRAN MAT (NEUT) % (test code = 770-8) 66.7 % IMM GRAN % (test code = 5519990229) 0.30 % LYMPH % (test code = 736-9) 24.7 % MONO % (test code = 5905-5) 6.3 % EOS % (test code = 713-8) 1.3 % BASO % (test code = 706-2) 0.7 % GRAN MAT x10^3(ANC) (test code = 7133311770) 5.09 10*3/uL 1.88-7.09 IMM GRAN x10^3 (test code = 8596243015) <0.03 0-0.06 LYMPH x10^3 (test code = 731-0) 1.88 10*3/uL 1.32-3.29 MONO x10^3 (test code = 742-7) 0.48 10*3/uL 0.33-0.92 EOS x10^3 (test code = 711-2) 0.10 10*3/uL 0.03-0.39 BASO x10^3 (test code = 704-7) 0.05 10*3/uL 0.01-0.07 [facility] GLUCOSE (AUTOMATED)2020-05-07 04:26:00* Test Item Value Reference Range Interpretation Comme nts POCT GLU (test code = 2519208116) 138 mg/dL 70-110 H Lab Interpretation (test cod e = 83668-1) Abnormal [facility] GLUCOSE (AUTOMATED)2020-05-07 00:30:00* Test Item Value Reference Range Interpretation Comme nts POCT GLU (test code = 0498330174) 103 mg/dL 70-110 Lab Interpretation (test cod e = 63176-9) Normal [facility] CenterC-REACTIVE [id number] 17:48:00* Test Item Value Reference Range Interpretation Comme nts CRP (test code = 8017240777) 0.2 mg/dL <0.8 Lab Interpretation (test cod e = 68067-5) Normal [facility] CenterPOCT [id number] 16:23:00* Test Item Value Reference Range Interpretation Comme nts POCT Creatinine (test code = 4325573174) 0.6 mg/dL 0.5-1.1 Lab Interpretation (test cod e = 63120-6) Normal [facility] CenterSEDIMENTATION [id number] 13:14:00* Test Item Value Reference Range Interpretation Comme nts ESR (test code = 3916746409) See_Comment [Automated [employer] ge] The system which generated this result transmitted reference range: 0 - 20 mm/HR. The reference range was not used to interpret this result as normal/abnormal. Lab Interpretation (test code = 28926-3) Normal [facility] Metabolic Panel (Na, K, Cl, CO2, Glucose, BUN, Creatinine, Ca)2020-05-06 10:54:00* Test Item Value Reference Range Interpretation Comme nts NA (test code = 5111326507) 140 mmol/L 135-145 K (test code = 4937551981) 4.0 mmol/L 3.5-5 CL (test code = 0727976495) 106 mmol/L 98-108 CO2 TOTAL (test code = 0949914666) 27 mmol/L 23-31 AGAP (test code = 3842642130) 2-16 BUN (test code = 2181391444) 11 mg/dL 7-23 GLUCOSE (test code = 7074789614) 112 mg/dL 70-110 H CREATININE (test code = 2545610729) 0.58 mg/dL 0.5-1.04 CALCIUM (test code = 0783828407) 8.9 mg/dL 8.6-10.6 eGFR Calculation (Non-) (test code = 6692119016) mL/min/1.73m2 eGFR Calculation () (test code = 9250471364) mL/min/1.73m2 MELO (test code = MELO) Association of [...] or abnormalities in imaging tests). Lab Interpretation (test code = 93383-6) Abnormal [facility] CenterMagensium, [id number] 10:54:00* Test Item Value Reference Range Interpretation Comme nts MAGNESIUM (test code = 3821869909) 2.2 mg/dL 1.7-2.4 Lab Interpretation (test cod e = 47564-9) Normal [facility] CenterTHYROID STIMULATING [id number] 10:33:00 * Test Item Value Reference Range Interpretation Comme nts TSH (test code = 9405524813) See_Comment Biotin has been reported to cause a negative bias, interpret results relative to patient's use of biotin. [Automated message] The system which generated this result transmitted reference range: 0.45 - 4.70 mIU/L. The reference range was not used to interpret this result as normal/abnormal. Lab Interpretation (test code = 63580-2) Normal [facility] CenterCB with Nouxejggczzk9295-39-38 10:21:00* Test Item Value Reference Range Interpretation Comme nts WBC (test code = 6690-2) See_Comment [Automated messa ge] The system which generated this result transmitted reference range: 4.30 - 11.10 10*3/?L. The reference range was not used to interpret this result as normal/abnormal. RBC (test code = 789-8) See_Comment [Automated messa ge] The system which generated this result transmitted reference range: 3.93 - 5.25 10*6/?L. The reference range was not used to interpret this result as normal/abnormal. HGB (test code = 718-7) 14.1 g/dL 11.6-15 HCT (test code = 4544-3) 41.1 % 35.7-45.2 MCV (test code = 787-2) 89.0 fL 80.6-95.5 MCH (test code = 785-6) 30.5 pg 25.9-32.8 MCHC (test code = 786-4) 34.3 g/dL 31.6-35.1 RDW-SD (test code = 40166-6) 40.5 fL 39-49.9 RDW-CV (test code = 788-0) 12.4 % 12-15.5 PLT (test code = 777-3) See_Comment L [Automated messa ge] The system which generated this result transmitted reference range: 166 - 358 10*3/?L. The reference range was not used to interpret this result as normal/abnormal. MPV (test code = 94999-4) 10.6 fL 9.5-12.9 NRBC/100 WBC (test code = 6519749377) See_Comment [Automated [employer] ssage] The system which generated this result transmitted reference range: 0.0 - 10.0 /100 WBCs. The reference range was not used to interpret this result as normal/abnormal. NRBC x10^3 (test code = 1816342898) <0.01 See_Comment [Automated messa ge] The system which generated this result transmitted reference range: 10*3/?L. The reference range was not used to interpret this result as normal/abnormal. GRAN MAT (NEUT) % (test code = 770-8) 53.6 % IMM GRAN % (test code = 3401140368) 0.30 % LYMPH % (test code = 736-9) 35.3 % MONO % (test code = 5905-5) 8.6 % EOS % (test code = 713-8) 1.6 % BASO % (test code = 706-2) 0.6 % GRAN MAT x10^3(ANC) (test code = 2996441293) 3.38 10*3/uL 1.88-7.09 IMM GRAN x10^3 (test code = 8269729075) <0.03 0-0.06 LYMPH x10^3 (test code = 731-0) 2.23 10*3/uL 1.32-3.29 MONO x10^3 (test code = 742-7) 0.54 10*3/uL 0.33-0.92 EOS x10^3 (test code = 711-2) 0.10 10*3/uL 0.03-0.39 BASO x10^3 (test code = 704-7) 0.04 10*3/uL 0.01-0.07 Lab Interpretation (test code = 92679-8) Abnormal [facility] CenterGLYCOSYLATED HEMOGLOBIN (A1C)2020-05-06 10:10:00* Test Item Value Reference Range Interpretation Comme nts HGB A1C (test code = 4548-4) 5.9 % 4-6 MELO (test code = MELO) %A1C (NGSP) Interpretation (ADA)4.8-5.6 ? ? Normal or (Non-Diabetic Range)5.7-6.4 ? ? Increased Risk (Pre-Diabetic)>6.5 ?Diabetes Indicated Lab Interpretation (test code = 97869-0) Normal [facility] CenterFASTING LIPID PANEL (49390)(TOTAL CHOLESTEROL, TRIGLYCERIDES, HDL)2020-05-06 09:59:00* Test Item Value Reference Range Interpretation Comme nts CHOL (test code = 6602624388) 250 mg/dL 120-200 H HDL (test code = 8964231142) 49 mg/dL >50 L HDLC RATIO (test code = 0651355148) See_Comment H [Automated [employer] ge] The system which generated this result transmitted reference range: <=4.5. The reference range was not used to interpret this result as normal/abnormal. TRIG (test code = 8199374678) 98 mg/dL 30-170 LDL CHOL (test code = 84338-7) 181 mg/dL See_Comment H [Automated [employer]] The system which generated this result transmitted reference range: <=160. The reference range was not used to interpret this result as normal/abnormal. VLDL (test code = 8300169990) 20 mg/dL 5-60 Lab Interpretation (test code = 42805-8) Abnormal [facility] CenterXR STROKE CHEST 1 [id number] 04:35:13 Blunting of the left costophrenic sulcus [...] knob. No acute osseous abnormality. RUQ surgical c lips are noted. [facility], Radiant Results Inft User [...] reviewed this study and agree with theabove report.[facility] CenterCT STROKE HEAD WO CONTRAST 2020-05-06 04:15:14No acute intracranial Unremarkable CTs head and neck [...] calcifications of the arch without affecting the ostiaresults. [...] artery is normal incaliber and patent. The superiorcerebellar arteries are unremarkable.Posterior cerebral arteries are patent. Posterior communicating arteriesare visualized. The distal cervical, petrous, cavernous and supraclinoid ICAs are patent.The anterior and middle cerebral arteries are patent. Small anteriorcommunicating artery is visualized. [facility], Radiant Results Inft User - 05/05/2020 10:16 PM CSTEXAM: CT STROKE HEAD WO CONTRAST, CT STROKE ANGIOGRAM HEAD, CT STROKEANGIOGRAM NECKHISTORY: Stroke suspected, focal neuro deficit, < [...] calcifications of the arch without affecting the o stiaresults.The innominate and subclavian arteries are patent.Calcified plaque is noted at the leftcarotid bulb without causingsignificant stenosis. The bilateral common carotid arteries, right carotidbulb and internal carotid arteries are patent without high-grade stenosis.The bilateral vertebralarteries originate from the subclavian arteries andare visualized throughout their entire cervical length. The ostia are freeof stenosis. No high-grade stenosis or dissection identified.Soft tissues of the neck are unremarkable.The visualized lung apices are clear.Mild spondylotic changes of the cervical spine.CT HEAD ANGIOGRAMPICA origin is visualized bilaterally. The basilar artery is normal inc aliber and patent. The superior cerebellar arteries are unremarkable.Posterior cerebral arteries are patent. Posterior communicating arteriesare visualized.The distal cervical, petrous, cavernous andsupraclinoid ICAs are patent.The anterior and middle cerebral arteries are patent. Small anteriorcommunicating artery is visualized.IMPRESSIONNo acute intracranialUnremarkable CTs head and neck angiog stu. No high-grade stenosis of theoccipital region.[facility] CenterCT STROKE ANGIOGRAM [id number] 04:15:14No acute intracranial Unremarkable CTs head and neck angiograms. No high-grade stenosis of theoccipi judy region.EXAM: CT STROKE HEAD WO CONTRAST, CT [...] artery takes of directly from the arch. Mildathero sclerotic calcifications of the arch without affecting the ostiaresults. [...] artery is normal incaliber and patent. The superiorcerebellar arteries are unremarkable.Posterior cerebral arteries are patent. Posterior communicating arteriesare visualized. The distal cervical, petrous, cavernous and supraclinoid ICAs are patent.The anterior and middle cerebral arteries are patent. Small anteriorcommunicating artery is visualized. [facility], Radiant Results Inft User - 05/05/2020 10:16 PM CSTEXAM: CT STROKE HEAD WO CONTRAST, CT STROKE ANGIOGRAM HEAD, CT STROKEANGIOGRAM NECKHISTORY: Stroke suspected, focal neuro deficit, < 6 hrs TECHNIQUE: CT of the head was performed without intravenous contrast.Sagittal and coronal reformats were generated.. CTs head and neckangiograms were performed following intravenous administration. S agittaland coronal reformats were generatedCOMPARISON: CT head dated.FINDINGS: [...] are patent.Calcified plaque is noted at the leftcarotid bulb without causingsignificant stenosis. The bilateral common carotid arteries, right carot idbulb and internal carotid arteries are patent without high-grade stenosis.The bilateral vertebralarteries originate from the subclavian arteries andare visualized [...] communicating arteriesare visualized.The distal cervical, petrous, cavernous andsupraclinoid ICAs are patent.The anterior and middle cerebral arteries are patent. Small anteriorcommunicating artery is visualized.IMPRESSIONNo acute intracranialUnremarkable CTs head and neck angiog stu. No high-grade stenosis of theoccipital region.[facility] [id number] 04:15:14No acute intracranial Unremarkable CTs head and neck angiograms. No high-grade stenosis of theoccipi judy region.EXAM: CT STROKE HEAD WO CONTRAST, CT [...] artery takes of directly from the arch. Mildathero sclerotic calcifications of the arch without affecting the ostiaresults. [...] artery is normal incaliber and patent. The superiorcerebellar arteries are unremarkable.Posterior cerebral arteries are patent. Posterior communicating arteriesare visualized. The distal cervical, petrous, cavernous and supraclinoid ICAs are patent.The anterior and middle cerebral arteries are patent. Small anteriorcommunicating artery is visualized. [facility], Radiant Results Inft User - 05/05/2020 10:16 PM CSTEXAM: CT STROKE HEAD WO CONTRAST, CT STROKE ANGIOGRAM HEAD, CT STROKEANGIOGRAM NECKHISTORY: Stroke suspected, focal neuro deficit, < 6 hrs TECHNIQUE: CT of the head was performed without intravenous contrast.Sagittal and coronal reformats were generated.. CTs head and neckangiograms were performed following intravenous administration. S ag[place] coronal reformats were generatedCOMPARISON: CT head dated.FINDINGS: [...] are patent.Calcified plaque is noted at the leftcarotid bulb without causingsignificant stenosis. The bilateral common carotid arteries, right carot idbulb and internal carotid arteries are patent without high-grade stenosis.The bilateral vertebralarteries originate from the subclavian arteries andare visualized [...] communicating arteriesare visualized.The distal cervical, petrous, cavernous andsupraclinoid ICAs are patent.The anterior and middle cerebral arteries are patent. Small anteriorcommunicating artery is visualized.IMPRESSIONNo acute intracranialUnremarkable CTs head and neck angiog stu. No high-grade stenosis of theoccipital region.[facility] CenterTrgillette [facility] I - Code [id number] 03:38:00* Test Item Value Reference Range Interpretation Comme nts TROPONIN I (test code = 4258913641) <0.012 See_Comment [Automated message] The system which generated this result transmitted reference range: <=0.034 ng/mL. The reference range was not used to interpret this result as normal/abnormal. MELO (test code = MELO) Equal or Less than 0.034 ng/ml---Normal ?Note: Cardiac troponin begins to [...] patient's use of biotin. ? Lab Interpretation (test code = 47088-5) Normal [facility] CenterCOVID-19 (ID NOW RAPID TESTING)2020-05-06 03:33:00* Test Item Value Reference Range Interpretation Comme nts SARS-CoV-2 Rapid ID NOW (test code = 72175-1) Not Detected Not Detected MELO (test code = MELO) ID NOW COVID-19 As say is an isothermal nucleic acid amplification test intended for the qualitative detection of nucleic acid from SARS-CoV-2 viral RNA in nasopharyngeal (REPAIR CAMERAMAN) specimens. It is used under Emergency Use [...] patient testing if clinically indicated. Lab Interpretation (test code = 55357-3) Normal [facility] Metabolic Panel (NA, K, CL, CO2, Glucose, BUN, Creatinine, CA) - Code Rlxozd8689-63-56 03:26:00* Test Item Value Reference Range Interpretation Comme nts NA (test code = 7581676680) 137 mmol/L 135-145 K (test code = 5508778705) 4.3 mmol/L 3.5-5 CL (test code = 4618961813) 101 mmol/L 98-108 CO2 TOTAL (test code = 6809096271) 27 mmol/L 23-31 AGAP (test code = 5985332592) 2-16 BUN (test code = 0812685847) 12 mg/dL 7-23 GLUCOSE (test code = 0751509157) 136 mg/dL 70-110 H CREATININE (test code = 4452602664) 0.61 mg/dL 0.5-1.04 CALCIUM (test code = 1183301668) 9.8 mg/dL 8.6-10.6 eGFR Calculation (Non-) (test code = 2274369610) mL/min/1.73m2 eGFR Calculation () (test code = 0624141017) mL/min/1.73m2 MELO (test code = MELO) Association of [...] or abnormalities in imaging tests). Lab Interpretation (test code = 63291-1) Abnormal [facility] CenteraPTT - Code Ewrbcs2361-16-42 03:23:00* Test Item Value Reference Range Interpretation Comme [facility] APTT Patient (test code = 3173-2) See_Comment [Automated message] The system which generated this result transmitted reference range: 23 - 38 Seconds. The reference range was not used to interpret this result as normal/abnormal. MELO (test code = MELO) The [facility] patient population mean normal value for aPTT is 30 seconds. Lab Interpretation (test code = 79295-0) Normal [facility] CenterProthrombin Time / INR - Code Mpuhbu9466-72-49 03:21:00* Test Item Value Reference Range Interpretation Comme [facility] PROTIME PATIENT (test code = 5964-2) See_Comment [Automated messa ge] The system which generated this result transmitted reference range: 12.0 - 14.7 Seconds. The reference range was not used to interpret this result as normal/abnormal. INR (test code = 6301-6) Normal INR <1.1; Warfarin Therapeutic range 2.0 to 3.0 or 2.5 to 3.5, depending upon the indications. Lab Interpretation (test code = 70599-8) Normal [facility] without Diff - Code Sneciu8268-09-13 03:13:00* Test Item Value Reference Range Interpretation Comme nts WBC (test code = 6690-2) See_Comment [Automated messa ge] The system which generated this result transmitted reference range: 4.30 - 11.10 10*3/?L. The reference range was not used to interpret this result as normal/abnormal. RBC (test code = 789-8) See_Comment [Automated messa ge] The system which generated this result transmitted reference range: 3.93 - 5.25 10*6/?L. The reference range was not used to interpret this result as normal/abnormal. HGB (test code = 718-7) 15.0 g/dL 11.6-15 HCT (test code = 4544-3) 43.1 % 35.7-45.2 MCH (test code = 785-6) 30.7 pg 25.9-32.8 MCV (test code = 787-2) 88.1 fL 80.6-95.5 MCHC (test code = 786-4) 34.8 g/dL 31.6-35.1 PLT (test code = 777-3) See_Comment [Automated messa ge] The system which generated this result transmitted reference range: 166 - 358 10*3/?L. The reference range was not used to interpret this result as normal/abnormal. MPV (test code = 66473-9) 10.4 fL 9.5-12.9 RDW-CV (test code = 788-0) 12.2 % 12-15.5 RDW-SD (test code = 61090-3) 39.3 fL 39-49.9 NRBC x10^3 (test code = 1579354877) <0.01 See_Comment [Automated [employer] ssage] The system which generated this result transmitted reference range: 10*3/?L. The reference range was not used to interpret this result as normal/abnormal. NRBC/100 WBC (test code = 3592875312) See_Comment [Automated me ssage] The system which generated this result transmitted reference range: 0.0 - 10.0 /100 WBCs. The reference range was not used to interpret this result as normal/abnormal. IPF % (test code = 3491131328) [facility] Notes Date/Time Note Provider Source 2023-01-25 15:03:49 JBCBIPxSneRv6cHlh+VU yQHAxuUBoG4A3vkn qkT368aEZ7ZplXqVSh4osWa9afRb7207-07- 24T15:03:49 MRI order placed. Ying Sarmiento MA 01/25/2023 3:03 PM 80106-0Sdqfqdhzd encounter FepcPT2429-34-93E94:04:04Telephone encounter NoteTXT1.2.840.048665.1.13.104.2.7.2 .385978|[id number] for patient fydp19868-2JsxlMHKIOGVHTR[address] Pf[id number] HUWOCEXLANJZJHAHFUTWPE9646-24-17U45: 04:041.2.840.050345.1.72.3.15|1.2.84 0.825065.1.13.104.2.7.2.727879_18826 0[address]14 [facility] 2023-01-25 13:18:27 1H5BtODPwMtmf/mAt5VK 8z8Q9QMMPWEKbKSj 45xMB+j8CvwQHbYd+xM6uQGsO7TF3617-78- 24T13:18:27 Pt daughter calling wanting to know if Dr Cadet was still going to put orders in for an MRI. She said he was supposed to put one in on 01/18 after her appointment. 64986-2Iiqpvhron encounter LqtoDX0436-89-71I15:21:39Telephone encounter NoteTXT1.2.840.553434.1.13.104.2.7.2 .813528|[id number] for patient lqgu52708-6ZajpHU638653385Hzbxh [address] Ye[id number] QCWPGLCKDKLWJKVJDHGZPX1519-41-54V56: 21:391.2.840.047410.1.72.3.15|1.2.84 0.894816.1.13.104.2.7.2.727879_18825 9[address] Edgardo Hernandez [facility]"
--- NOTE | 2023-06-30 10:04 | RAD REPORT ---
EXAM DESCRIPTION: CT - Head C Spine Cap [facility] - 06/30/2023 9:34 am CLINICAL HISTORY: Head and neck injury with chest and abdominal pain status post fall TECHNIQUE: Computed axial tomography of head, neck, chest, abdomen and pelvis obtained. IV and oral contrast not requested. Coronal and sagittal reconstruction performed. All CT scans are performed using dose optimization technique as appropriate and may include automated exposure control or mA/KV adjustment according to patient size. COMPARISON: 2022 FINDINGS: An intracranial bleed is not seen. The ventricles are normal in caliber. An extra-axial fluid collection is not noted. Fluid within the sinuses/mastoids is not seen. A cervical fracture is not seen. No dislocation is noted. A 7 millimeters sclerotic foci right posterior aspect C7 vertebral body The evaluation of mediastinum, venita, vessels, solid organs and bowel are limited secondary to the lac k of contrast administration. A mediastinal hematoma is not noted. A pleural effusion is not seen. A lung contusion is not present. The liver,spleen, pancreas, adrenals,kidneys and bladder do not demonstrate an acute traumatic injury Monitor subluxation L4 on L5. Minimal anterior subluxation of L5 on S1. Spondylosis L5 There are 4 lumbar vertebra. Since January 2023 a compression fracture L1 vertebral body has developed estimated to be 35%. No retropulsion of fracture fragment into the spinal canal IMPRESSION: No acute intracranial abnormality is seen. A cervical fracture is not visualized. If the patient continues to have symptoms to suggest intracran ial/spinal cord pathology MRI be recommended No acute traumatic abnormality involving the chest Mild to moderate acute compression fracture L1 vertebral body. Four lumbar vertebra are present 7 millimeter sclerotic foci C7 vertebral body nonspecific. Follow-up cervical spine x-ray in 3 months recommended to assess stability
--- NOTE | 2023-06-30 10:24 | EDPHYS ---
Physician Documentation [facility] Name: Diana Harrell Age: 83 yrs Sex: Female : 1940 Arrival Date: 06/30/2023 Time: 08:41 Bed 8 Private MD: Rocio Fontanez ED Physician Jak Mckeon HPI: 06/30 09:12 This 83 yrs old Female presents to ER via Wheelchair with complaints of Fall sb4 Injury. 09:12 patient presents with complaining of head pain, neck pain, back pain, and sb4 abdominal pain after sustaining a mechanical fall yesterday. husbands states that she has arthritis and neuropathy so typically has lower extremity pain, and this caused her to fall yesterday. patient is a very poor historian, cannot localize where she is hurting, or the extent of her fall. she is not on blood thinners. Historical: - Allergies: 09:09 No Known Allergies; ap3 - PMHx: 09:09 Arthritis; Hypertension; ap3 - Immunization history:: Adult Immunizations up to date. - Social history:: Smoking status: unknown. ROS: 09:12 Constitutional: Negative for fever, chills, and weight loss, sb4 09:12 Abdomen/GI: Positive for abdominal pain, 09:12 Back: Positive for pain at rest, 09:12 MS/extremity: Positive for pain, of the pelvis, 09:12 Neuro: Positive for headache, 09:12 All other systems are negative, Exam: 09:12 Head/Face: Normocephalic, atraumatic. Eyes: Extra-ocular motions intact. Periorbital sb4 areas with no swelling, redness, or edema. ENT: Mucous membranes moist. Cardiovascular: Regular rate and rhythm with a normal S1 and S2. Respiratory: Lungs have equal breath sounds bilaterally, clear to auscultation and percussion. No rales, rhonchi or wheezes noted. No increased work of breathing, no retractions or nasal flaring. Abdomen/GI: Soft, non-tender, no distension. Skin: Warm, dry with normal turgor. Normal color with no rashes, no lesions, and no evidence of cellulitis. Neuro: Awake and alert, GCS 15, oriented to person, place, time, and situation. Motor strength 5/5 in all extremities. Sensory grossly intact. 09:12 Constitutional: The patient appears alert, awake, in obvious pain, uncomfortable, 09:12 Back: pain, that is moderate, ROM is painful, normal spinal alignment noted, CVA tenderness, is absent, vertebral tenderness, Straight leg raises: pain bilaterally, 09:12 Special observations: writhing around in pain, difficult to obtain true assessment, Vital Signs: 09:08 BP 168 / 84; Pulse 76; Resp 16; Temp 97.9(TE); Pulse Ox 97% on R/A; Pain 10/10; ap3 09:08 Pain Scale: Adult ap3 MDM: 09:01 Patient medically screened. sb4 09:12 Differential diagnosis: closed head injury, contusion, fracture, sprain, strain. sb4 10:22 Data reviewed: vital signs, nurses notes, radiologic studies, and as a result, I will sb4 discharge patient. Historians other than the Patient: Spouse/Significant Other: . Care significantly affected by the following chronic conditions: Hypertension. Counseling: I had a detailed discussion with the patient and/or guardian regarding the historical points, exam findings, and any diagnostic results supporting the discharge/admit diagnosis, the presence of at least one elevated blood pressure reading (>120/80) during this emergency department visit, radiology results, the need for outpatient follow up, for definitive care, to return to the emergency department if symptoms worsen or persist or if there are any questions or concerns that arise at home. 06/30 09:12 Order name: CT Traumagram (Head C Spine CAP wo con); Complete Time: 10:08 sb4 Administered Medications: 09:20 Drug: morphine IM 4 mg IM once Route: IM; Site: right gluteus; aa5 09:40 Follow up: Response: No adverse reaction aa5 09:20 Drug: Ondansetron Oral Disintegrating Tablet Oral Disintegrating Tablet 4 mg PO once aa5 Route: PO; 09:40 Follow up: Response: No adverse reaction aa5 Disposition: 11:01 Co-signature as Attending Physician, Jak Mckeon MD I reviewed the patient's care rt provided by the Advanced Practice Provider and agree with the diagnosis and treatment plan. Disposition Summary: 06/30/23 10:23 Discharge Ordered Notes: Location: Home sb4 Problem: new sb4 Symptoms: have improved sb4 Condition: Stable sb4 Diagnosis - acute compression fracture - L1 sb4 Followup: sb4 - With: Rocio Fontanez DO - When: 2 - 3 days - Reason: Recheck today's complaints, Re-evaluation by your physician Discharge Instructions: - Discharge Summary Sheet sb4 - Spinal Compression Fracture sb4 - Back Exercises, Uyyg-md-Csnj sb4 Forms: - Medication Reconciliation Form sb4 - Thank You Letter sb4 - Antibiotic Education sb4 - Prescription Opioid Use sb4 - Patient Portal Instructions sb4 - Leadership Thank You Letter sb4 Prescriptions: - lidocaine 5 % adhesive patch, medicated - apply 1 patch TRANSDERMAL route daily leave on most painful area for up to 12 sb4 hrs; 10 patch; Refills: 0, Product Selection Permitted - Diclofenac Sodium 75 mg Oral Tablet Sustained Release - take 1 tablet ORAL route 2 times per day; 30 tablet; Refills: 0, Product sb4 Selection Permitted - Tramadol 50 mg Oral Tablet - take 1 tablet ORAL route every 8 hours as needed; 12 tablet; Refills: 0, sb4 Product Selection Permitted Signatures: Dispatcher [employer] Brenda Starks, RN RN aa5 Mer Osorio RN RN ap3 Paulina Kaminski, PAGrace PAGrace sb4 Jak Mckeon MD MD rt
--- NOTE | 2023-06-30 10:24 | ER ---
Nurse's Notes [facility] Name: Diana Harrell Age: 83 yrs Sex: Female : 1940 Arrival Date: 06/30/2023 Time: 08:41 Bed 8 Private MD: Rocio Fontanez Diagnosis: acute compression fracture - L1 Presentation: 06/30 09:08 Chief complaint: Headache, low back pain, and abdominal pain after mechanical fall from ap3 standing yesterday. Coronavirus screen: At this time, the client does not indicate any symptoms associated with coronavirus-19. Ebola Screen: No symptoms or risks identified at this time. Initial Sepsis Screen: Does the patient meet any 2 criteria? No. Patient's initial sepsis screen is negative. Does the patient have a suspected source of infection? No. Patient's initial sepsis screen is negative. Risk Assessment: Do you want to hurt yourself or someone else? Patient reports no desire to harm self or others. Onset of symptoms was June 29, 2023. 09:08 Method Of Arrival: Wheelchair ap3 09:08 Acuity: VAN 3 ap3 Historical: - Allergies: 09:09 No Known Allergies; ap3 - PMHx: 09:09 Arthritis; Hypertension; ap3 - Immunization history:: Adult Immunizations up to date. - Social history:: Smoking status: unknown. Screenin:[address] [facility] ED Fall Risk Assessment (Adult) History of falling in the last 3 months, aa5 including since admission Yes- fall prone (multiple falls) (3 pts) Score/Fall Risk Level 3 or more points = High Risk Oriented to surroundings, Maintained a safe environment, Educated pt \T\ family on fall prevention, incl call for assistance when getting out of bed. Abuse screen: Denies threats or abuse. Nutritional screening: No deficits noted. Tuberculosis screening: No symptoms or risk factors identified. Assessment: 09:10 General: Appears uncomfortable, Behavior is calm, cooperative. Pain: Complains of pain aa5 in head, lower back, and abdomen Pain currently is 10 out of 10 on a pain scale. Quality of pain is described as aching, sharp, shooting, Pain began 1 day ago. Is continuous, Aggravated by increased activity, repositioning. Neuro: Level of Consciousness is awake, alert, obeys commands, Oriented to person, place, time, situation. Cardiovascular: Patient's skin is warm and dry. Respiratory: Airway is patent Respiratory effort is even, unlabored, Respiratory pattern is regular, symmetrical. GI: Abdomen is round non-distended, Bowel sounds present X 4 quads. Abd is soft X 4 quads. : No signs and/or symptoms were reported regarding the genitourinary system. EENT: No signs and/or symptoms were reported regarding the EENT system. Derm: Skin is pink, warm \T\ dry. Musculoskeletal: Range of motion: intact in all extremities. 09:40 Reassessment: Patient is alert, oriented x 3, equal unlabored respirations, skin aa5 warm/dry/pink. Pt back from CT scan. . Vital Signs: 09:08 BP 168 / 84; Pulse 76; Resp 16; Temp 97.9(TE); Pulse Ox 97% on R/A; Pain 10/10; ap3 09:08 Pain Scale: Adult ap3 ED Course: 08:45 Patient arrived in ED. mr 08:47 Rocio Fontanez DO is Private Physician. mr 09:01 Paulina Kaminski PA-C is PHCP. sb4 09:01 Jak Mckeon MD is Attending Physician. sb4 09:09 Triage completed. ap3 09:09 Arm band placed on. ap3 09:15 Brenda Cortes, RN is Primary Nurse. aa5 09:36 CT Traumagram (Head C Spine CAP wo con) In Process Unspecified. EDMS 10:22 Rocio Fontanez DO is Referral Physician. sb4 10:55 Provided Education on: discharge instructions. ap3 10:55 Patient has correct armband on for positive identification. Bed in low position. Call ap3 light in reach. Side rails up X2. 10:55 No provider procedures requiring assistance completed. Patient did not have IV access ap3 during this emergency room visit. Administered Medications: 09:20 Drug: morphine IM 4 mg IM once Route: IM; Site: right gluteus; aa5 09:40 Follow up: Response: No adverse reaction aa5 09:20 Drug: Ondansetron Oral Disintegrating Tablet Oral Disintegrating Tablet 4 mg PO once aa5 Route: PO; 09:40 Follow up: Response: No adverse reaction aa5 Medication: 10:56 VIS not applicable for this client. ap3 Outcome: 10:23 Discharge ordered by . sb4 10:55 Discharged to home via wheelchair, ap3 10:55 Condition: good 10:55 Discharge instructions given to patient, Instructed on discharge instructions, follow up and referral plans. medication usage, Demonstrated understanding of instructions, follow-up care, medications, Prescriptions given X 3, 10:56 Patient left the ED. ap3 Signatures: Dispatcher [employer] EDMS Evette Frank, Reg Reg mr CortesBrenda, RN RN aa5 Mer Osorio RN RN ap3 Paulina Kaminski, PA-C PA-C sb4
[2023-06-30 11:11] VITALS: BP 168/84; TEMP 97.9; O2SAT 97
== END ==
LOC: ER 08:41
DX: S32.019A Unspecified fracture of first lumbar vertebra, initial encounter for closed fracture (principal); W19.XXXA Unspecified fall, initial encounter; M19.90 Unspecified osteoarthritis, unspecified site; I10 Essential (primary) hypertension
CPT/HCPCS: 70450; 71250; 72125; Q0162

== ENCOUNTER 2023-09-01 01:41 | Emergency (ER) | payer OTHER ==
--- OUTSIDE RECORDS SUMMARY | 2023-09-01 01:46 | XMS REPORT | Continuity of Care Document ---
Author Name Unknown Address [address] [facility] [address] [place] [address] [facility] [address] [facility] [address] [place] [address] Care Team Providers Care Aircraft Inspector Name Role Phone PCP, PATIENT DOES NOT HAVE A Primary Care Physic kade Unavailable [email or web address] Attending Clinician UnavailELISHA Will Attending Clinician Unavailable RAMIRO ACDET Attending Clinician UnavailRAMIRO Cleary Attending Clinician UnavailRamiro Cleary MD Attending Clinician [phone] Doctor Unassigned, [place] Attending Clinician U Elda Turk RN Attending Clinician Unavailable Virgie Hammer Attending Clinician [phone] Kendall Schultz MD Attending Clinician Meg Murrieta MD Attending Clinician [phone] TAMMI MAGANA Attending Clinician Unavailable JUAN LUIS PAGE Attending Clinician Unavailable Ricardo Kenyon MD Attending Clinician [phone] Juan Luis Page MD Attending Clinician [phone] Nurse, [facility] General Surgery Attending Clinician U Soham Waterman MD Attending Clinician [phone] SOHAM SCHULTZ Attending Clinician Unavailable Kateryna LARES, Andres S Attending Clinician [phone] Lavern LARES, Ros S Attending Clinician [phone] Keon KAY, Alphonso Odonnell Attending Clinician [phone] Juliet Freitas Cardio Vascular Attending Clinician Un available [email or web address] Admitting Clinician UnavailRAMIRO Bryant Admitting Clinician UnavailMeg Amezcua MD Admitting Clinician [phone] JUAN LUIS PAGE Admitting Clinician Unavailable Juan Luis Page MD Admitting Clinician [phone] Payers Payer Name Policy Type Policy Number Effective Date Expirati on Date Source ELENI CARR PLS HMO [id number] 2019 00:00:00 MEDICARE PART A \\T\\ [id number] 2007 00:00:00 Problems Condition Name Condition Details Condition Category Status Onset Date Resolution Date Last Treatment Date Treating Clinician Comments Source Headache Headache Disease Active 09-08 00:00: 00 [facility] Depression Depression Disease Active 2019-06 00:00: 00 [facility] Diarrhea Diarrhea Disease Active 2019-06 00:00: 00 [facility] Slurred speech Slurred speech Disease Active 2019-06 00:00: 00 [facility] Allergies, Adverse Reactions, Alerts Allergy Name Allergy Type Status Severity Reaction(s) Onset Date Inactive Date Treating Clinician Comments Source NO KNOWN ALLERGIE S Drug Class Active [facility] Social History Social Habit Start Date Stop Date Quantity Comments Source Gender identity [facility] to SARS-CoV-2 (event) Not sure [facility] Tobacco use and exposure 2023-01-18 00:00:00 2023-01-18 00:00:00 Smokeless tobacco non-user [facility] History of Social function 2023-01-18 00:00:00 2023-01-18 00:00:00 [facility] Sex Assigned At 1940 00:00:00 1940 00:00:00 [facility] Smoking Status Start Date Stop Date Source Never smoked tobacco [facility] Unknown if ever smoked [facility] Medications Ordered Medication Name Filled Medication Name Start Date Stop Date Current Medication? Ordering Clinician Indication Dosage Frequency Signature (SIG) Comments Components Source ketorolac (TORADOL) injection 15 mg 09-08 15:00: 00 09-08 14:31 :00 No 15mg 15 mg, Slow IV Push, ONCE, 1 dose, Sun09/08/20 at 1000, Routine
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 approving Restricted medication : MEG MURRIETA [facility] pantoprazol e (PROTONIX) EC tablet 40 mg 09-08 14:00: 00 Yes 40mg 40 mg, Oral, DAILY, First dose on Sun09/08/20 at 0900, Until Discontinu ed, Routine [facility] aspirin chewable tablet 81 mg 09-08 14:00: 00 Yes 81mg 81 mg, Oral, DAILY, First dose on Sun09/08/20 at 0900, Until Discontinu ed, Routine [facility] magnesium sulfate in water 2 gram/50 mL (4 %) infusion 2 g 09-08 14:00: 00 09-08 13:16 :00 No 2g 2 g, IV Piggyback, ONCE, 1 dose, Sun09/08/20 at 0900, Routine [facility] clopidogreL (PLAVIX) tablet 300 mg 09-08 14:00: 00 09-08 08:47 :34 No 300mg 300 mg, Oral, DAILY, First dose on Sun09/08/20 at 0900, Until Discontinu ed, Routine [facility] heparin (porcine) injection 5,000 Units 09-08 13:00: 00 Yes 5000U 5,000 Units, Subcutaneo us, Q12H, First dose on Sun09/08/20 at 0800, Until Discontinu ed, Routine [facility] NaCl 0.9% (NS) IV infusion 1,000 mL 09-08 08:45: 00 Yes 1000mL at 75 mL/hr, IV Infusion, CONTINUOUS , Starting Sun09/08/20 at 0345, Until Discontinu ed, Routine [facility] acetaminoph en (TYLENOL) tablet 650 mg 09-08 08:33: 52 Yes 650mg 650 mg, Oral, Q6HPRN, Starting Sun09/08/20 at 0333, Until Discontinu ed, Routine, Pain (scale 4-6) [facility] docusate (COLACE) capsule 100 mg 09-08 08:33: 52 Yes 100mg 100 mg, Oral, QDAILYPRN, Starting Sun09/08/20 at 0333, Until Discontinu ed, Routine, Constipati on [facility] iohexol (OMNIPAQUE 350 BULK-100 mL) injection 100 mL 09-08 03:30: 00 09-08 03:30 :00 No [id number] 100mL 100 mL, Intravenou s, ONCE, 1 dose, Sun09/07/20 at 2230, Routine [facility] magnesium oxide 400 mg (241.3 mg magnesium) tablet 09-08 00:00: 00 Yes [id number] 400mg Take 1 tablet by mouth daily. [facility] topiramate 25 mg tablet 09-08 00:00: 00 Yes [id number] 25mg Take 1 tablet by mouth daily. [facility] magnesium oxide 400 mg (241.3 mg magnesium) tablet 09-08 00:00: 00 Yes [id number] 400mg Take 1 tablet by mouth daily. [facility] topiramate 25 mg tablet 09-08 00:00: 00 Yes [id number] 25mg Take 1 tablet by mouth daily. [facility] magnesium oxide 400 mg (241.3 mg magnesium) tablet 09-08 00:00: 00 Yes [id number] 400mg Take 1 tablet by mouth daily. [facility] topiramate 25 mg tablet 09-08 00:00: 00 Yes [id number] 25mg Take 1 tablet by mouth daily. [facility] magnesium oxide 400 mg (241.3 mg magnesium) tablet 09-08 00:00: 00 Yes [id number] 400mg Take 1 tablet by mouth daily. [facility] topiramate 25 mg tablet 09-08 00:00: 00 Yes [id number] 25mg Take 1 tablet by mouth daily. [facility] magnesium oxide 400 mg (241.3 mg magnesium) tablet 09-08 00:00: 00 Yes [id number] 400mg Take 1 tablet by mouth daily. [facility] topiramate 25 mg tablet 09-08 00:00: 00 Yes [id number] 25mg Take 1 tablet by mouth daily. [facility] magnesium oxide 400 mg (241.3 mg magnesium) tablet 09-08 00:00: 00 Yes [id number] 400mg Take 1 tablet by mouth daily. [facility] topiramate 25 mg tablet 09-08 00:00: 00 Yes [id number] 25mg Take 1 tablet by mouth daily. [facility] magnesium oxide 400 mg (241.3 mg magnesium) tablet 09-08 00:00: 00 Yes [id number] 400mg Take 1 tablet by mouth daily. [facility] topiramate 25 mg tablet 09-08 00:00: 00 Yes [id number] 25mg Take 1 tablet by mouth daily. [facility] magnesium oxide 400 mg (241.3 mg magnesium) tablet 09-08 00:00: 00 Yes [id number] 400mg Take 1 tablet by mouth daily. [facility] topiramate 25 mg tablet 09-08 00:00: 00 Yes [id number] 25mg Take 1 tablet by mouth daily. [facility] magnesium oxide 400 mg (241.3 mg magnesium) tablet 09-08 00:00: 00 Yes [id number] 400mg Take 1 tablet by mouth daily. [facility] topiramate 25 mg tablet 09-08 00:00: 00 Yes [id number] 25mg Take 1 tablet by mouth daily. [facility] magnesium oxide 400 mg (241.3 mg magnesium) tablet 09-08 00:00: 00 Yes [id number] 400mg Take 1 tablet by mouth daily. [facility] topiramate 25 mg tablet 09-08 00:00: 00 Yes [id number] 25mg Take 1 tablet by mouth daily. [facility] aspirin 81 mg chewable tablet 2019-06 00:00: 05-09 05:59 :00 No [id number] 81mg Take 1 tablet by mouth daily for 364 days. [facility] aspirin 81 mg chewable tablet 2019-06 00:00: 00 05-09 05:59 :00 No [id number] 81mg Take 1 tablet by mouth daily for 364 days. [facility] aspirin 81 mg chewable tablet 2019-06 00:00: 00 05-09 05:59 :00 No [id number] 81mg Take 1 tablet by mouth daily for 364 days. [facility] aspirin 81 mg chewable tablet 2019-06 00:00: 00 05-09 05:59 :00 No [id number] 81mg Take 1 tablet by mouth daily for 364 days. [facility] gadobenate dimeglumine (MULTIHANCE -15 mL) injection 12.06 mL 2019-06 01:45: 00 05-08 01:45 :00 No .2mL/kg 12.06 mL (0.2 mL/kg ?60.3 kg), Intravenou s, ONCE, 1 dose, Sun05/07/20 at 1945, Routine [facility] atorvastati n 40 mg tablet 2019-06 00:00: 00 08-07 05:59 :00 No [id number] 40mg Take 1 tablet by mouth at bedtime for 90 days. [facility] atorvastati n 40 mg tablet 2019-06 00:00: 00 08-07 05:59 :00 No [id number] 40mg Take 1 tablet by mouth at bedtime for 90 days. [facility] LORazepam (ATIVAN) tablet 1 mg 2019-06 16:30: 00 05-08 00:16 :00 No 1mg 1 mg, Oral, ONCE, 1 dose, Sun05/07/20 at 1030, Routine [facility] aspirin chewable tablet 81 mg 2019-06 15:00: 00 Yes 81mg 81 mg, Oral, DAILY, First dose on Sun05/07/20 at 0900, Until Discontinu ed, Routine [facility] atorvastati n (LIPITOR) tablet 40 mg 2019-06 03:00: 00 Yes 40mg 40 mg, Oral, QHS, First dose (after last modificati on) on Sun05/06/20 at 2100, Until Discontinu ed, [facility] + Fsbg Testing 2019-06 22:30: 00 Yes Subcutaneo us, AC+HS, First dose on Sun05/06/20 at 1630, Until Discontinu ed, Routine [facility] LORazepam (ATIVAN) tablet 1 mg 2019-06 22:15: 00 05-06 23:54 :00 No 1mg 1 mg, Oral, ONCE, 1 dose, Sun05/06/20 at 1615, [facility] Sal[facility] 2019-06 18:10: 47 Yes 6mL 6 mL, Injection, SEE-INSTRU CTIONS, Starting Sun05/06/20 at 1210, Until Discontinu ed, Routine [facility] Saline Bubble Study 2019-06 18:10: 44 Yes 6mL 6 mL, Injection, SEE-INSTRU CTIONS, Starting Lynda 05/06/20 at 1210, Until Discontinu ed, Routine [facility] pantoprazol e (PROTONIX) EC tablet 20 mg 2019-06 15:00: 00 Yes 20mg 20 mg, Oral, DAILY, First dose on Sun05/06/20 at 0900, Until Discontinu ed, Routine [facility] heparin (porcine) injection 5,000 Units 2019-06 14:00: 00 Yes 5000U 5,000 Units, Subcutaneo us, Q12H, First dose on Sun05/06/20 at 0800, Until Discontinu ed, Routine [facility] naproxen (NAPROSYN) tablet 500 mg 2019-06 14:00: 00 05-07 21:37 :08 No 500mg 500 mg, Oral, BID MEALS, First dose on Sun05/06/20 at 0800, Until Discontinu ed, Routine [facility] acetaminoph en (TYLENOL) tablet 325 mg 2019-06 09:28: 45 Yes 325mg 325 mg, Oral, Q6HPRN, Starting Sun05/06/20 at 0328, Until Discontinu ed, Routine, Pain (scale 1-3), Temp > 37.5 C [facility] ondansetron (ZOFRAN (PF)) injection 4 mg 2019-06 05:15: 00 05-06 04:21 :00 No 4mg 4 mg, Slow IV Push, ONCE, 1 dose, Sun05/05/20 at 2315, RUTH ANN [facility] FENTanyl PF (SUBLIMAZE (PF)) injection 25 mcg 2019-06 05:15: 00 05-06 04:21 :00 No 25ug 25 mcg, Slow IV Push, ONCE, 1 dose, Sun05/05/20 at 2315, STAT [facility] iohexol (OMNIPAQUE 350 BULK-100 mL) injection 100 mL 2019-06 03:45: 00 05-06 03:28 :00 No 100mL 100 mL, Intravenou s, ONCE, 1 dose, Sun05/05/20 at 2145, Routine [facility] NaCl 0.9% (NS) injection 5 mL 2019-06 03:05: 16 Yes 5mL 5 mL, Slow IV Push, PRN - SEE INSTRUCTIO NS, Starting Sun05/05/20 at 2105, Until Discontinu ed, 10 mL [facility] HYDROcodone -acetaminop hen (NORCO 5) 5-325 mg tablet 1 tablet 01-30 05:45: 00 01-30 04:45 :00 No 1{tbl} 1 tablet, Oral, ONCE, 1 dose, [facility] 01/30/19 at 0045, RUTH ANN [facility] traMADol 50 mg tablet 01-29 00:00: 00 Yes [id number] 9102 50mg Take 1 tablet by mouth every 6 (six) hours as needed for Pain (scale 4-6). [facility] naproxen (NAPROSYN) 500 mg tablet 01-29 00:00: 00 Yes [id number] 9102 500mg Take 1 tablet by mouth 2 (two) times daily with meals. [facility] traMADol 50 mg tablet 01-29 00:00: 00 Yes [id number] 9102 50mg Take 1 tablet by mouth every 6 (six) hours as needed for Pain (scale 4-6). [facility] naproxen (NAPROSYN) 500 mg tablet 01-29 00:00: 00 Yes [id number] 9102 500mg Take 1 tablet by mouth 2 (two) times daily with meals. [facility] traMADol 50 mg tablet 01-29 00:00: 00 Yes [id number] 50mg Take 1 tablet by mouth every 6 (six) hours as needed for Pain (scale 4-6). [facility] naproxen (NAPROSYN) 500 mg tablet 01-29 00:00: 00 Yes [id number] 500mg Take 1 tablet by mouth 2 (two) times daily with meals. [facility] traMADol 50 mg tablet 01-29 00:00: 00 Yes [id number] 50mg Take 1 tablet by mouth every 6 (six) hours as needed for Pain (scale 4-6). [facility] naproxen (NAPROSYN) 500 mg tablet 01-29 00:00: 00 Yes [id number] 500mg Take 1 tablet by mouth 2 (two) times daily with meals. [facility] traMADol 50 mg tablet 01-29 00:00: 00 Yes [id number] 50mg Take 1 tablet by mouth every 6 (six) hours as needed for Pain (scale 4-6). [facility] naproxen (NAPROSYN) 500 mg tablet 01-29 00:00: 00 Yes [id number] 500mg Take 1 tablet by mouth 2 (two) times daily with meals. [facility] tablet 01-29 00:00: 00 Yes [id number] 50mg Take 1 tablet by mouth every 6 (six) hours as needed for Pain (scale 4-6). [facility] naproxen (NAPROSYN) 500 mg tablet 01-29 00:00: 00 Yes [id number] 500mg Take 1 tablet by mouth 2 (two) times daily with meals. [facility] traMADol 50 mg tablet 01-29 00:00: 00 Yes [id number] 9102 50mg Take 1 tablet by mouth every 6 (six) hours as needed for Pain (scale 4-6). [facility] naproxen (NAPROSYN) 500 mg tablet 01-29 00:00: 00 Yes [id number] 9102 500mg Take 1 tablet by mouth 2 (two) times daily with meals. [facility] traMADol 50 mg tablet 01-29 00:00: 00 Yes [id number] 9102 50mg Take 1 tablet by mouth every 6 (six) hours as needed for Pain (scale 4-6). [facility] naproxen (NAPROSYN) 500 mg tablet 01-29 00:00: 00 Yes [id number] 9102 500mg Take 1 tablet by mouth 2 (two) times daily with meals. [facility] traMADol 50 mg tablet 01-29 00:00: 00 Yes [id number] 9102 50mg Take 1 tablet by mouth every 6 (six) hours as needed for Pain (scale 4-6). [facility] naproxen (NAPROSYN) 500 mg tablet 01-29 00:00: 00 Yes [id number] 9102 500mg Take 1 tablet by mouth 2 (two) times daily with meals. [facility] traMADol 50 mg tablet 01-29 00:00: 00 Yes [id number] 9102 50mg Take 1 tablet by mouth every 6 (six) hours as needed for Pain (scale 4-6). [facility] naproxen (NAPROSYN) 500 mg tablet 01-29 00:00: 00 Yes [id number] 9102 500mg Take 1 tablet by mouth 2 (two) times daily with meals. [facility] traMADol 50 mg tablet 01-29 00:00: 00 Yes [id number] 9102 50mg Take 1 tablet by mouth every 6 (six) hours as needed for Pain (scale 4-6). [facility] naproxen (NAPROSYN) 500 mg tablet 01-29 00:00: 00 Yes [id number] 9102 500mg Take 1 tablet by mouth 2 (two) times daily with meals. [facility] traMADol 50 mg tablet 01-29 00:00: 00 Yes [id number] 9102 50mg Take 1 tablet by mouth every 6 (six) hours as needed for Pain (scale 4-6). [facility] naproxen (NAPROSYN) 500 mg tablet 01-29 00:00: 00 Yes [id number] 9102 500mg Take 1 tablet by mouth 2 (two) times daily with meals. [facility] traMADol 50 mg tablet 01-29 00:00: 00 09-08 00:00 :00 No [id number] 9102 50mg Take 1 tablet by mouth every 6 (six) hours as needed for Pain (scale 4-6). [facility] naproxen (NAPROSYN) 500 mg tablet 01-29 00:00: 00 09-08 00:00 :00 No [id number] 9102 500mg Take 1 tablet by mouth 2 (two) times daily with meals. [facility] Vital Signs Vital Name Observation Time Observation Value Comments [facility] Systolic blood pressure 2023-01-18 13:58:00 155 mm[Hg] [facility] Diastolic blood pressure 2023-01-18 13:58:00 73 mm[Hg] [facility] Heart rate 2023-01-18 13:58:00 64 /min [facility] Body height 2023-01-18 13:58:00 134.6 cm [facility] Body weight 2023-01-18 13:58:00 52.663 kg [facility] BMI 2023-01-18 13:58:00 29.06 kg/m2 [facility] Systolic blood pressure 2020-09-08 16:24:00 110 mm[Hg] [facility] Diastolic blood pressure 2020-09-08 16:24:00 56 mm[Hg] [facility] Heart rate 2020-09-08 16:24:00 65 /min [facility] Body temperature 2020-09-08 16:24:00 36.67 Teresa [facility] Respiratory rate 2020-09-08 16:24:00 16 /min [facility] Oxygen saturation in Arterial blood by Pulse oximetry 2020-09-08 16:24:00 96 /min [facility] Body height 2020-09-08 07:10:00 149.9 cm [facility] Body weight 2020-09-08 07:10:00 58.968 kg [facility] BMI 2020-09-08 07:10:00 26.26 kg/m2 [facility] Systolic blood pressure 2020-05-08 19:57:00 157 mm[Hg] [facility] Diastolic blood pressure 2020-05-08 19:57:00 82 mm[Hg] [facility] Heart rate 2020-05-08 19:57:00 81 /min [facility] Body temperature 2020-05-08 19:57:00 35.94 Teresa [facility] Respiratory rate 2020-05-08 19:57:00 16 /min [facility] Oxygen saturation in Arterial blood by Pulse oximetry 2020-05-08 19:57:00 97 /min [facility] Body height 2020-05-06 03:03:00 149.9 cm [facility] Body weight 2020-05-06 03:03:00 60.328 kg [facility] BMI 2020-05-06 03:03:00 26.86 kg/m2 [facility] Systolic blood pressure 2019-01-30 14:31:00 151 mm[Hg] [facility] Diastolic blood pressure 2019-01-30 14:31:00 74 mm[Hg] [facility] Heart rate 2019-01-30 14:28:00 65 /min [facility] Body height 2019-01-30 14:28:00 149.9 cm [facility] Body weight 2019-01-30 14:28:00 55.339 kg [facility] BMI 2019-01-30 14:28:00 24.64 kg/m2 [facility] Systolic blood pressure 2019-01-30 04:00:00 122 mm[Hg] [facility] Diastolic blood pressure 2019-01-30 04:00:00 54 mm[Hg] [facility] Heart rate 2019-01-30 04:00:00 75 /min [facility] Oxygen saturation in Arterial blood by Pulse oximetry 2019-01-30 04:00:00 94 /min [facility] Body temperature 2019-01-30 02:25:00 37 Teresa [facility] Body height 2019-01-30 02:15:00 149.9 cm [facility] Body weight 2019-01-30 02:15:00 55.339 kg [facility] BMI 2019-01-30 02:15:00 24.64 kg/m2 [facility] Procedures Procedure Date / Time Performed Performing Clinician Source MR KNEE RIGHT WO CONTRAST 2023-02-07 15:53:00 Ramiro Cadet [facility] XR KNEE <3 VW RIGHT 2023-01-18 14:13:30 Talia Cadet [facility] ASSIGNMENT OF BENEFITS 2023-01-18 13:40:08 Docto r Unassigned, [place] [facility] REFERRAL- REQUEST/RESPONSE 2023-01-05 05:01:00 Doctor Unassigned, [place] [facility] REFERRAL- REQUEST/RESPONSE 2022-12-22 05:01:00 Doctor Unassigned, [place] [facility] DUPLEX VENOUS LEGS BILATERAL - BY VASCULAR LAB 2020-09-08 16:46:19 [facility] 2020-09-08 09:32:00 [facility] MAGNESIUM 2020-09-08 09:32:00 Mar[facility] BASIC METABOLIC PANEL (NA, K, CL, CO2, GLUCOSE, BUN, CREATININE, CA) 2020-09-08 09:32:00 Maral [facility] SEDIMENTATION RATE 2020-09-08 09:32[facility]00 [facility] 2020-09-08 09:32:00 Maral [facility] CT STROKE ANGIOGRAM HEAD 2020-09-08 03:20:03 Virgie Luna [facility] CT STROKE ANGIOGRAM NECK 2020-09-08 03:20:03 Virgie Luna [facility] CT STROKE HEAD WO CONTRAST 2020-09-08 03:11:34 Virgie Luna [facility] TROPONIN I 2020-09-08 02:58:00 Virgie Luna [facility] THYROID STIMULATING HORMONE 2020-09-08 02:58:00 Maral [facility] BASIC METABOLIC PANEL (NA, K, CL, CO2, GLUCOSE, BUN, CREATININE, CA) 2020-09-08 02:58:00 Virgie Luna [facility] CBC WITHOUT DIFF 2020-09-08 02:58:00 Virgie Luna [facility] GLYCOSYLATED HEMOGLOBIN (A1C) 2020-09-08 02:58:00 Maral [facility] PROTHROMBIN TIME / INR 2020-09-08 02:58:00 Virgie Luna [facility] ACTIVATED PARTIAL THRMPLAS CHAGO 2020-09-08 02:58:00 Virgie Luna [facility] COVID-19 (ID NOW RAPID TESTING) 2020-09-08 02:58:00 Virgie Luna [facility] HB ECG ROUTINE & RHYTHM STRIP 2020-09-08 02:37:18 Virgie Luna [facility] POCT GLUCOSE (AUTOMATED) 2020-09-08 02:36:00 Doc tor Unassigned, [place] [facility] EMERGENCY SERVICES AGREEMENTS AND AUTHORIZATIONS 2020-09-07 05:01:00 Doctor Unassigned, [place] [facility] POCT GLUCOSE (AUTOMATED) 2020-05-08 15:37:00 Mark Kenyon [facility] POCT GLUCOSE (AUTOMATED) 2020-05-08 02:55:00 Mark Kenyon [facility] MR VENOGRAM HEAD W CONTRAST 2020-05-08 01:38:27 Maral regan [facility] MR STROKE BRAIN WO CONTRAST 2020-05-08 01:04:51 Maral regan [facility] POCT GLUCOSE (AUTOMATED) 2020-05-07 22:16:00 Mark Kenyon [facility] XR KUB 2020-05-07 18:49:29 Rashel Michelle [facility] XR BONE SURVEY 2020-05-07 18:47:38 Aletha Alicia [facility] POCT GLUCOSE (AUTOMATED) 2020-05-07 18:41:00 Mark Kenyon [facility] POCT GLUCOSE (AUTOMATED) 2020-05-07 14:04:00 Mark Kenyon [facility] MAGNESIUM 2020-05-07 11:24:00 Vic Roberto [facility] BASIC METABOLIC PANEL (NA, K, CL, CO2, GLUCOSE, BUN, CREATININE, CA) 2020-05-07 11:24:00 Vic Roberto [facility] CBC WITH DIFF 2020-05-07 11:24:00 Vic Roberto [facility] POCT GLUCOSE (AUTOMATED) 2020-05-07 04:20:00 Mark Kenyon [facility] POCT GLUCOSE (AUTOMATED) 2020-05-07 00:01:00 Mark Kenyon [facility] ECHO ROUTINE W/DOPPLER COLOR 2020-05-06 16:27:50 Vic Roberto [facility] MAGNESIUM 2020-05-06 10:08:00 Vic Roberto [facility] C-REACTIVE PROTEIN 2020-05-06 10:08:00 Vic Roberto [facility] BASIC METABOLIC PANEL (NA, K, CL, CO2, GLUCOSE, BUN, CREATININE, CA) 2020-05-06 10:08:00 Vic Roberto [facility] SEDIMENTATION RATE 2020-05-06 10:08:00 Vic Roberto [facility] CBC WITH DIFF 2020-05-06 10:08:00 Vic Roberto [facility] XR STROKE CHEST 1 VW 2020-05-06 03:38:20 Rizwana Kenyon i [facility] CT STROKE HEAD WO CONTRAST 2020-05-06 03:31:57 Ricardo Kenyon [facility] CT STROKE ANGIOGRAM HEAD 2020-05-06 03:31:57 Mark Kenyon [facility] CT STROKE ANGIOGRAM NECK 2020-05-06 03:31:57 Mark Kenyon [facility] HB CREATININE BLOOD 2020-05-06 03:11:00 Ricardo Kenyon [facility] TROPONIN I 2020-05-06 03:07:00 Ricardo Kenyon [facility] THYROID STIMULATING HORMONE 2020-05-06 03:07:00 Vic Roberto [facility] BASIC METABOLIC PANEL (NA, K, CL, CO2, GLUCOSE, BUN, CREATININE, CA) 2020-05-06 03:07:00 Ricardo Kenyon [facility] LIPID PANEL (07173)(TOTAL CHOLESTEROL, TRIGLYCERIDES, HDL) 2020-05-06 03:07[facility]00 [facility] 2020-05-06 03:07:00 Ricardo Kenyon [facility] GLYCOSYLATED HEMOGLOBIN (A1C) 2020-05-06 03:07:00 Vic Roberto [facility] PROTHROMBIN TIME / INR 2020-05-06 03:07:00 Carlos Kenyon [facility] ACTIVATED PARTIAL THRMPLAS CHAGO 2020-05-06 03:07:00 Ricardo Kenyon [facility] COVID-19 (ID NOW RAPID TESTING) 2020-05-06 03:07:00 Ricardo Kenyon [facility] LAB ONLY COVID INTERPRETATION 2020-05-06 03:07:00 Ricardo Kenyon [facility] HB ECG ROUTINE & RHYTHM STRIP 2020-05-06 03:01:09 Ricardo Kenyon [facility] EMERGENCY SERVICES AGREEMENTS AND AUTHORIZATIONS 2020-05-05 06:01:00 Doctor Unassigned, [place] [facility] HOSPITAL ADMISSION 2020-04-05 06:01:00 Doctor Un assigned, [place] [facility] MEDICATION CORRESPONDENCE 2019-08-11 05:01:00 Do ctor Unassigned, [place] [facility] XR KNEE <3 VW LEFT 2019-01-30 04:40:52 Yasmani Dee [facility] Encounters Start Date/Time End Date/Time Encounter Type Admission Type Attending Clinicians Care Facility Care Department Encounter ID Source 2021-04-03 11:10:14 Emergency [facility] [id number] [facility] 2023-04-02 00:00:00 2023-04-02 00:00:00 Outpatient GC_GCBZW_Ka srinivasaa_S [facility] [id number] [facility] 2023-02-14 00:00:00 2023-02-14 00:00:00 Outpatient R ELISHA VENTURA [facility] [id number] [facility] 2023-02-07 09:39:52 2023-02-07 23:59:00 Outpatient R RAMIRO CADET CRAIG [facility] [id number] [facility] 2023-02-07 09:39:52 2023-02-07 23:59:00 Hospital Encounter Ramiro Cadet [facility] 1.2.840.114 350.1.13.10 4.2.7.2.686 [id number] [facility] 2023-02-02 00:00:00 2023-02-02 00:00:00 Outpatient R RAMIRO CADET [facility] [id number] [facility] 2023-01-25 00:00:00 2023-01-25 00:00:00 Telephone Ramiro Cadet [facility] 1.2.840.114 350.1.13.10 4.2.7.2.686 [id number] [facility] 2023-01-18 09:00:00 2023-01-18 23:59:00 Outpatient R RAMIRO CADET [facility] [id number] [facility] 2023-01-18 09:00:00 2023-01-18 23:59:00 Hospital Encounter Ramiro Cadet [facility] 1.2840.114 350.1.13.10 4.2.7.2.686 [id number] [facility] 2023-01-18 09:00:00 2023-01-18 09:21:25 Office Visit Ramiro Cadet [facility] 1.2840.114 350.1.13.10 4.2.7.2.686 [id number] [facility] 2023-01-18 00:00:00 2023-01-18 00:00:00 Orders Only Doctor Unassigned, [place] [facility] 1.2840.114 350.1.13.10 4.2.7.2.686 [id number] [facility] 2023-01-05 00:00:00 2023-01-05 00:00:00 Orders Only Doctor Unassigned, [place] [facility] 1.2840.114 350.1.13.10 4.2.7.2.686 [id number] [facility] 2022-12-22 00:00:00 2022-12-22 00:00:00 Orders Only Doctor Unassigned, [place] [facility] 1.2840.114 350.1.13.10 4.2.7.2.686 [id number] [facility] 2020-09-09 00:00:00 2020-09-09 00:00:00 Transition of Care Elda Norman 1.2840.114 350.1.13.10 4.2.7.2.686 [id number] [facility] 2020-09-07 21:32:00 2020-09-08 18:23:00 Emergency Virgie Luna [facility]r a [facility] 1.840.114 350.1.13.10 4.2.7.2.686 [id number] [facility] 2020-06-29 09:30:00 2020-06-29 09:30:00 Outpatient TAMMI MICHEL [facility] [id number] [facility] 2020-06-01 11:00:00 2020-06-01 11:00:00 Outpatient TAMMI MICHEL [facility] [id number] [facility] 2020-06-01 11:00:00 2020-06-01 11:00:00 Outpatient TAMMI MICHEL [facility] [id number] [facility] 2020-05-10 00:00:00 2020-05-10 00:00:00 Transition of Care Elda Norman 1.840.114 350.1.13.10 4.2.7.2.686 [id number] [facility] 2020-05-05 21:00:00 2020-05-08 14:30:00 Inpatient JUAN LUIS OG [facility] DAVID [id number] [facility] 2020-05-05 21:00:00 2020-05-08 14:30:00 Hospital Encounter YarimaRicardo Todd Love [facility] 1.2.840.114 350.1.13.10 4.2.7.2.686 [id number] [facility] 2020-04-05 00:00:00 2020-04-05 00:00:00 Orders Only Doctor Unassigned, [place] [facility] 1.2.840.114 350.1.13.10 4.2.7.2.686 [id number] [facility] 2019-09-22 00:00:00 2019-09-22 00:00:00 Telephone Nurse, [facility] General Surgery [facility] 1.2.840.114 350.1.13.10 4.2.7.2.686 [id number] [facility] 2019-09-20 00:00:00 2019-09-20 00:00:00 Telephone Soham Schultz [facility] 1.2.840.114 350.1.13.10 4.2.7.2.686 [id number] [facility] 2019-09-18 16:14:20 2019-09-18 16:29:20 Nurse Visit Nurse, [facility] General Surgery Soham Schultz [facility] 1.2.840.114 350.1.13.10 4.2.7.2.686 [id number] [facility] 2019-09-18 16:15:00 2019-09-18 16:15:00 Outpatient R SOHAM SCHULTZ [facility] [id number] [facility] 2019-09-18 00:00:00 2019-09-18 00:00:00 Telephone Soham Schultz [facility] 1.2.840.114 350.1.13.10 4.2.7.2.686 [id number] [facility] 2019-08-11 00:00:00 2019-08-11 00:00:00 Orders Only Doctor Unassigned, [place] [facility] 1.2.840.114 350.1.13.10 4.2.7.2.686 [id number] [facility] 2019-01-30 09:24:42 2019-01-30 10:24:58 Office Visit Andres Avendaño [facility] 1.2.840.114 350.1.13.10 4.2.7.2.686 [id number] [facility] 2019-01-29 21:12:31 2019-01-30 00:31:00 Emergency Ros Puckett [facility] 1.2.840.114 350.1.13.10 4.2.7.2.686 [id number] [facility] 2019-01-29 22:00:00 2019-01-29 23:59:00 Hospital Encounter Alphonso Herbert, [facility] 1.2.840.114 350.1.13.10 4.2.7.2.686 [id number] [facility] Results Test Description Test Time Test Comments Results Result Co mments Source [facility] (Na, K, Cl, CO2, Glucose, BUN, Creatinine, Ca)2020-09-08 10:28:17* Test Item Value Reference Range Interpretation Comme nts NA (test code = 7065940989) 137 mmol/L 135-145 K (test code = 5563003386) 3.8 mmol/L 3.5-5.0 Slight hemolysis CL (test code = 3747218728) 106 mmol/L 98-108 CO2 TOTAL (test code = 4011581885) 25 mmol/L 23-31 AGAP (test code = 8728878919) 2-16 BUN (test code = 4810853141) 13 mg/dL 7-23 Slight hemolysis GLUCOSE (test code = 2374296988) 106 mg/dL 70-110 CREATININE (test code = 0708169127) 0.60 mg/dL 0.50-1.04 CALCIUM (test code = 9353636205) 8.2 mg/dL 8.6-10.6 L eGFR (test code = 5642917743) mL/min/1.73m2 MELO (test code = MELO) Association [...] imaging tests). Lab Interpretation (test code = 77446-5) Abnormal [facility] Hospital[facility] Hnimd0902-04-97 10:28:17* Test Item Value Reference Range Interpretation Comme nts MAGNESIUM (test code = 0738223609) 2.0 mg/dL 1.7-2.4 Lab Interpretation (test cod e = 35478-2) Normal [facility] HospitalPhosphorus Owkei7573-78-96 10:28:17* Test Item Value Reference Range Interpretation Comme nts PHOSPHORUS (test code = 2432147166) 3.8 mg/dL 2.5-5.0 Lab Interpretation (test cod e = 49061-7) Normal [facility] HospitalThyroid Stimulating Enrrjyg5478-50-32 10:09:55 * Test Item Value Reference Range Interpretation Comme nts TSH (test code = 0287839067) See_Comment Biotin has been reported to cause a negative bias, interpret results relative to patient's use of biotin. [Automated message] The system which generated this result transmitted reference range: 0.45 - 4.70 mIU/L. The reference range was not used to interpret this result as normal/abnormal. Lab Interpretation (test code = 35470-2) Normal [facility] Hospital[facility]YCOSYLATED HEMOGLOBIN (A1C)2020-09-08 09:56:02* Test Item Value Reference Range Interpretation Comme nts HGB A1C (test code = 4548-4) 5.9 % 4.0-6.0 MELO (test code = MELO) %A1C (NGSP) Interpretation (ADA)4.8-5.6 ? ? Normal or (Non-Diabetic Range)5.7-6.4 ? ? Increased Risk (Pre-Diabetic)>6.5 ?Diabetes Indicated Lab Interpretation (test code = 11342-8) Normal [facility] with Wtxzpgooltht1382-59-82 09:53:50* Test Item Value Reference Range Interpretation Comme nts WBC (test code = 6690-2) See_Comment [Automated [employer] ge] The system which generated this result transmitted reference range: 4.30 - 11.10 10*3/?L. The reference range was not used to interpret this result as normal/abnormal. RBC (test code = 789-8) See_Comment [Automated [employer]] The system which generated this result transmitted [...] 33.9 g/dL 31.6-35.1 RDW-SD (test code = 92098-4) 41.1 fL 39.0-49.9 RDW-CV (test code = 788-0) 12.7 % 12.0-15.5 PLT (test code = 777-3) See_Comment [Automated messa ge] The system which generated this result transmitted reference range: 166 - 358 10*3/?L. The reference range was not used to interpret this result as normal/abnormal. MPV (test code = 00791-8) 10.2 fL 9.5-12.9 NRBC/100 WBC (test code = 1553782004) See_Comment [Automated me ssage] The system which generated this result transmitted reference range: 0.0 - 10.0 /100 WBCs. The reference range was not used to interpret this result as normal/abnormal. NRBC x10^3 (test code = 1129374055) <0.01 See_Comment [Automated me ssage] The system which generated this result transmitted reference range: 10*3/?L. The reference range was not used to interpret this result as normal/abnormal. GRAN MAT (NEUT) % (test code = 770-8) 53.8 % IMM GRAN % (test code = 2442938947) 0.30 % LYMPH % (test code = 736-9) 35.7 % MONO % (test code = 5905-5) 8.0 % EOS % (test code = 713-8) 1.4 % BASO % (test code = 706-2) 0.8 % GRAN MAT x10^3(ANC) (test code = 2878040257) 3.36 10*3/uL 1.88-7.09 IMM GRAN x10^3 (test code = 8670671731) <0.03 0.00-0.06 LYMPH x10^3 (test code = 731-0) 2.23 10*3/uL 1.32-3.29 MONO x10^3 (test code = 742-7) 0.50 10*3/uL 0.33-0.92 EOS x10^3 (test code = 711-2) 0.09 10*3/uL 0.03-0.39 BASO x10^3 (test code = 704-7) 0.05 10*3/uL 0.01-0.07 [facility] [id number] 04:03:20No high-grade occlusion/stenosis, dissection, or aneurysm of theintracranial and extracranial arteries. Preliminary Report Dictated by Resident: Aletha Poole I, Brett Rodarte MD., have reviewed this study and agree with the abovereport.EXAM: CT STROKE ANGIOGRAM HEAD, CT STROKE ANGIOGRAM NECK HISTORY: ?Acute Stroke Rad: please obtain POCT creatinine prior to CTAhead/neck TECHNIQUE: Axial CT imaging of the [place] and from the skull baseto the superior mediastinum was obtained during arterial phase after theintravenous administration of IV contrast. Coronal, sagittal, and MIPS wereconstructed. COMPARISON: Same day CT head CTA HEAD: The PICA origin is visualized bilaterally. The basilar artery is normal incaliber. The superior cerebellar arteries are patent. Mild focal stenosisof left P2 BOND CLERK The posterior cerebral arteries are otherwise patent. [...] to CTAhead/neckTECHNIQUE: Axial CT imaging of the [place] and from the skull baseto the superior mediastinum was obtained during arterial phase after theintravenous administration of IV contrast. Coronal, sagittal, and MIPS wereconstructed.COMPARISON: Same day CT headCTA HEAD:The PICA origin is visualized bilaterally. The basilar artery is normal incaliber. The superior cerebellar arteries are patent. Mild focal stenosisof left P2 BOND CLERK The posterior cerebral arteries are otherwise patent. [...] reviewed this study and agree with the abovereport.[facility] [id number] 04:03:20No high-grade occlusion/stenosis, dissection, or aneurysm of theintracranial and extracranial arteries. Preliminary Report Dictated by Resident: Brett Dunn MD., have reviewed this study and agree with the abovereport.EXAM: CT STROKE ANGIOGRAM HEAD, CT STROKE ANGIOGRAM NECK HISTORY: ?Acute Stroke Rad: please obtain POCT creatinine prior to CTAhead/neck TECHNIQUE: Axial CT imaging of the [place] and from the skull baseto the superior mediastinum was obtained during arterial phase after theintravenous administration of IV contrast. Coronal, sagittal, and MIPS wereconstructed. COMPARISON: Same day CT head CTA HEAD: The PICA origin is visualized bilaterally. The basilar artery is normal incaliber. The superior cerebellar arteries are patent. Mild focal stenosisof left P2 BOND CLERK The posterior cerebral arteries are otherwise patent. [...] in C7 vertebral body, likelya bony island. Vtmb, Radiant Results Inft User - 09/07/2020 11:04 PM CDTEXAM: CT STROKE ANGIOGRAM HEAD, CT STROKE ANGIOGRAM NECKHISTORY: Acute Stroke Rad: please obtain POCT creatinine prior to CTAhead/neckTECHNIQUE: Axial CT imaging of the [place] and from the skull baseto the superior mediastinum was obtained during arterial phase after theintravenous administration of IV contrast. Coronal, sagittal, and MIPS wereconstructed.COMPARISON: Same day CT headCTA HEAD:The PICA origin is visualized bilaterally. The basilar artery is normal incaliber. The superior cerebellar arteries are patent. Mild focal stenosisof left P2 BOND CLERK The posterior cerebral arteries are otherwise patent. [...] reviewed this study and agree with the abovereport.[facility] I - Code Stroke 2020-09-08 03:26:09* Test Item Value Reference Range Interpretation Comme nts TROPONIN I (test code = 7472554324) 0.001 ng/mL See_Comment [Automated message] The system [...] biotin. ? Lab Interpretation (test code = 13976-0) Normal [facility]COVID[facility] (ID NOW RAPID TESTING)2020-09-08 03:18:06* Test Item Value Reference Range Interpretation Comme nts SARS-CoV-2 Rapid ID NOW (test code = 66052-8) Not Detected Not Detected MELO (test code = MELO) ID NOW COVID-19 As say is an isothermal nucleic acid amplification test intended for the qualitative detection of nucleic acid from SARS-CoV-2 viral RNA in nasopharyngeal (FOOD BEVERAGE MANAGER) specimens. It is used under Emergency Use [...] clinically indicated. Lab Interpretation (test code = 89575-3) Normal [facility] STRO[facility] HEAD WO [id number] 03:16:40No acute intracranial abnormality.EXAM: CT STROKE HEAD [...] The calvariumand central skull base are unremarkable. Vtmb, Radiant Results Inft User - 09/07/2020 10:17 [...] central skull base are unremarkable.IMPRESSIONNo acute intracranial abnormality.[facility] Met[facility] Panel (NA, K, CL, CO2, Glucose, BUN, Creatinine, CA) - Code Lmgazm2268-28-80 03:14:45 * Test Item Value Reference Range Interpretation Comme nts NA (test code = 4103937308) 140 mmol/L 135-145 K (test code = 1879535429) 3.9 mmol/L 3.5-5.0 CL (test code = 2654602019) 105 mmol/L 98-108 CO2 TOTAL (test code = 2623693168) 26 mmol/L 23-31 AGAP (test code = 5749967750) 2-16 BUN (test code = 8243524561) 16 mg/dL 7-23 GLUCOSE (test code = 5172779454) 149 mg/dL 70-110 H CREATININE (test code = 6150732191) 0.70 mg/dL 0.50-1.04 CALCIUM (test code = 5200093058) 9.5 mg/dL 8.6-10.6 eGFR (test code = 1539803596) mL/min/1.73m2 MELO (test code = MELO) Association [...] imaging tests). Lab Interpretation (test code = 16064-1) Abnormal [facility] HospitalaPTT - Code Vdgthc0902-45-92 03:13:43* Test Item Value Reference Range Interpretation Comme [facility] APTT Patient (test code = 3173-2) See_Comment [Automated message] The system which generated this result transmitted reference range: 23 - 38 Seconds. The reference range was not used to interpret this result as normal/abnormal. MELO (test code = MELO) The [facility] patient population mean normal value for aPTT is 30 seconds. Lab Interpretation (test code = 52678-4) Normal [facility] HospitalProthrombin Time / INR - Code Jzbhhn5238-97-62 03:11:41* Test Item Value Reference Range Interpretation Comme [facility] PROTIME PATIENT (test code = 5964-2) See_Comment [Automated [employer]] The system which generated this result transmitted reference range: 12.0 - 14.7 Seconds. The reference range was not used to interpret this result as normal/abnormal. INR (test code = 6301-6) Normal INR <1.1; Warfarin Therapeutic range 2.0 to 3.0 or 2.5 to 3.5, depending upon the indications. Lab Interpretation (test code = 84571-5) Normal [facility] without Diff - Code Mpfqjt5255-21-35 03:04:23* Test Item Value Reference Range Interpretation Comme nts WBC (test code = 6690-2) See_Comment [Automated [employer]] The system which generated this result transmitted reference range: 4.30 - 11.10 10*3/?L. The reference range was not used to interpret this result as normal/abnormal. RBC (test code = 789-8) See_Comment [Automated [employer]] The system which generated this result [...] PLT (test code = 777-3) See_Comment [Automated [employer]] The system which generated this result transmitted reference range: 166 - 358 10*3/?L. The reference range was not used to interpret this result as normal/abnormal. MPV (test code = 10001-4) 10.6 fL 9.5-12.9 RDW-CV (test code = 788-0) 12.4 % 12.0-15.5 RDW-SD (test code = 80829-7) 39.4 fL 39.0-49.9 NRBC x10^3 (test code = 3092031322) <0.01 See_Comment [Automated [employer] ssage] The system which generated this result transmitted reference range: 10*3/?L. The reference range was not used to interpret this result as normal/abnormal. NRBC/100 WBC (test code = 8006225322) See_Comment [Automated me ssage] The system which generated this result transmitted reference range: 0.0 - 10.0 /100 WBCs. The reference range was not used to interpret this result as normal/abnormal. IPF % (test code = 9877417722) [facility] GLUCOSE (AUTOMATED)2020-09-08 02:42:06* Test Item Value Reference Range Interpretation Comme nts POCT GLU (test code = 4992624688) 139 mg/dL 70-110 H Lab Interpretation (test cod e = 69710-5) Abnormal [facility] GLUCOSE (AUTOMATED)2020-05-08 15:40:00* Test Item Value Reference Range Interpretation Comme nts POCT GLU (test code = 4817525051) 290 mg/dL 70-110 H Lab Interpretation (test cod e = 56537-0) Abnormal [facility] GLUCOSE (AUTOMATED)2020-05-08 03:01:00* Test Item Value Reference Range Interpretation Comme nts POCT GLU (test code = 6458798018) 118 mg/dL 70-110 H Lab Interpretation (test cod e = 70083-5) Abnormal [facility] VENOGRAM HEAD W [id number] 01:58:40 Patent dural sinuses. EXAMINATION: MR VENOGRAM [...] patent. Hypoplasticleft transverse and sigmoidsinuses. IMPRESSIONPatent dural sinuses.[facility] STROKE BRAIN WO CONTRAST 2020-05-08 01:52:53No [...] are unremarkable. The paranasalsinuses are essentially clear. Vtmb, Radiant Results Inft User - 05/07/2020 7:57 [...] paranasalsinuses are essentially clear. IMPRESSIONNo acute intracranial abnormality.[facility] LAB ONLY COVID [id number] 00:13:00COVID DMT InterpretationInterpretation/Recommendations: Molecular NAAT Tests for [...] upon aggregate COVID-19 test results pooled from [facility]. They apply to the following tests offered at [facility] and assume the acceptable specimen type(s) were used: A. Tests for the I dentification of SARS-CoV-2 RNA (Molecular NAAT Tests): ?- SARS-CoV-2 PCR assays including [place] Aptima, [place] Fusion, Nicole RealTime, and V[place]oda Xpert Xpress. ?- SARS-CoV-2 Rapid ID NOW by the ID NOW assay. ? B. Tests for the Identification of SARS-CoV-2 Antibodies: ?- Chemiluminescent immunoassays including Access SARS-CoV-2 IgM (DXI 600), Service RouteS Tbfw-SLQK-WdP-2 IgG (Vitros 5600 and Vitros 3600), and Nicole SARS-CoV-2 IgG (DIRECTOR IMAGING I System). These interpretations areautopopulated into [facility] based on computerized algorithms matching an interpretation code to the patient's set of test results, and a clinical pathologist evaluates the comments for accuracy. However,these comments do not consider testing a patient may have had outside of the [facility] system. If results for COVID-19 [...] bronchoalveolar lavage fluid (BAL),tracheal aspirate, etc.). ? [facility] LABORATORY SERVICESCOVID ZzdmtjbMXAT-HdT-0 NAAT (no units) ? ? Date ? Value ? 09/18/2019 ? Not Detected ? SARS-CoV-2 Rapid ID NOW (no units) ? ? Date ? Value ? 05/05/2020 ?Not Detected ? [facility] LABORATORY SERVICESUnB[facility] GLU[facility]SE (AUTOMATED)2020-05-07 22:19:00* Test Item Value Reference Range Interpretation Comme nts POCT GLU (test code = 6390784347) 140 mg/dL 70-110 H Lab Interpretation (test cod e = 30470-4) Abnormal [facility] HospitalXR [id number] 20:59:37Nonobstructive bowel gas pattern. Preliminary Report Dictated [...] noted. Degenerative changes affect thelower lumbar spine. [facility], Radiant Results Inft User - 05/07/2020 3:00 [...] reviewed this study and agree with theabove report.[facility] HospitalXR BONE [id number] 18:59:511. ?No radiographic evidence of osseous metastatic [...] radiographic evidence of osseous metastatic disease.RL: 1105 [facility] ([facility]ATED)2020-05-07 18:59:00* Test Item Value Reference Range Interpretation Comme nts POCT GLU (test code = 0042921763) 96 mg/dL 70-110 Lab Interpretation (test cod e = 20813-0) Normal [facility] GLUCOSE (AUTOMATED)2020-05-07 14:20:00* Test Item Value Reference Range Interpretation Comme nts POCT GLU (test code = 1409179736) 122 mg/dL 70-110 H Lab Interpretation (test cod e = 94040-5) [facility]normal [facility] (Na, K, Cl, CO2, Glucose, BUN, Creatinine, Ca)2020-05-07 12:08:00* Test Item Value Reference Range Interpretation Comme nts NA (test code = 8777773558) 137 mmol/L 135-145 K (test code = 1311765850) 4.4 mmol/L 3.5-5 CL (test code = 5539261129) 106 mmol/L 98-108 CO2 TOTAL (test code = 4855901996) 27 mmol/L 23-31 AGAP (test code = 8663655929) 2-16 BUN (test code = 0271404130) 22 mg/dL 7-23 GLUCOSE (test code = 3580328111) 108 mg/dL 70-110 CREATININE (test code = 7780904489) 0.67 mg/dL 0.5-1.04 CALCIUM (test code = 4382200123) 8.7 mg/dL 8.6-10.6 eGFR Calculation (Non-) (test code = 7712735746) mL/min/1.73m2 eGFR Calculation () (test code = 8377647760) mL/min/1.73m2 MELO (test code = MELO) Association [...] or urine or abnormalities in imaging tests). [facility], Gzuko3133-65-66 12:08:00* Test Item Value Reference Range Interpretation Comme nts MAGNESIUM (test code = 8351274360) 2.2 mg/dL 1.7-2.4 Lab Interpretation (test cod e = 57963-0) Normal [facility] with Cxxcutiebyly9438-83-17 11:43:00* Test Item Value Reference Range Interpretation Comme nts WBC (test code = 6690-2) See_Comment [Automated [employer]] The system which generated this result [...] 33.2 g/dL 31.6-35.1 RDW-SD (test code = 61270-3) 41.3 fL 39-49.9 RDW-CV (test code = 788-0) 12.5 % 12-15.5 PLT (test code = 777-3) See_Comment [Automated messa ge] The system which generated this result transmitted reference range: 166 - 358 10*3/?L. The reference range was not used to interpret this result as normal/abnormal. MPV (test code = 76339-6) 10.6 fL 9.5-12.9 NRBC/100 WBC (test code = 5892131623) See_Comment [Automated [employer] ssage] The system which generated this result transmitted reference range: 0.0 - 10.0 /100 WBCs. The reference range was not used to interpret this result as normal/abnormal. NRBC x10^3 (test code = 0953240673) <0.01 See_Comment [Automated me ssage] The system which generated this result transmitted reference range: 10*3/?L. The reference range was not used to interpret this result as normal/abnormal. GRAN MAT (NEUT) % (test code = 770-8) 66.7 % IMM GRAN % (test code = 6294827124) 0.30 % LYMPH % (test code = 736-9) 24.7 % MONO % (test code = 5905-5) 6.3 % EOS % (test code = 713-8) 1.3 % BASO % (test code = 706-2) 0.7 % GRAN MAT x10^3(ANC) (test code = 0864699727) 5.09 10*3/uL 1.88-7.09 IMM GRAN x10^3 (test code = 5777177471) <0.03 0-0.06 LYMPH x10^3 (test code = 731-0) 1.88 10*3/uL 1.32-3.29 MONO x10^3 (test code = 742-7) 0.48 10*3/uL 0.33-0.92 EOS x10^3 (test code = 711-2) 0.10 10*3/uL 0.03-0.39 BASO x10^3 (test code = 704-7) 0.05 10*3/uL 0.01-0.07 [facility] GLUCOSE (AUTOMATED)2020-05-07 04:26:00* Test Item Value Reference Range Interpretation Comme nts POCT GLU (test code = 3491543805) 138 mg/dL 70-110 H Lab Interpretation (test cod e = 91196-7) Abnormal [facility] GLUCOSE (AUTOMATED)2020-05-07 00:30:00* Test Item Value Reference Range Interpretation Comme nts POCT GLU (test code = 6822234127) 103 mg/dL 70-110 Lab Interpretation (test cod e = 87865-1) Normal [facility]ACT[facility] KIIQOTK9734-02-97 17:48:00* Test Item Value Reference Range Interpretation Comme nts CRP (test code = 6043334175) 0.2 mg/dL <0.8 Lab Interpretation (test cod e = 26175-6) Normal [facility]PO[facility] FXQFMUJTLJ4781-68-20 16:23:00* Test Item Value Reference Range Interpretation Comme nts POCT Creatinine (test code = 3613167463) 0.6 mg/dL 0.5-1.1 Lab Interpretation (test cod e = 85477-9) Normal [facility] HospitalSEDIMENTATION UQWK4110-63-03 13:14:00* Test Item Value Reference Range Interpretation Comme nts ESR (test code = 9309456738) See_Comment [Automated [employer]] The system which generated this result transmitted reference range: 0 - 20 mm/HR. The reference range was not used to interpret this result as normal/abnormal. Lab Interpretation (test code = 34950-1) Normal [facility] Metabolic Panel (Na, K, Cl, CO2, Glucose, BUN, Creatinine, Ca)2020-05-06 10:54:00* Test Item Value Reference Range Interpretation Comme nts NA (test code = 2316243593) 140 mmol/L 135-145 K (test code = 7041286142) 4.0 mmol/L 3.5-5 CL (test code = 4940295378) 106 mmol/L 98-108 CO2 TOTAL (test code = 1270065500) 27 mmol/L 23-31 AGAP (test code = 5999994680) 2-16 BUN (test code = 9467292743) 11 mg/dL 7-23 GLUCOSE (test code = 1111701194) 112 mg/dL 70-110 H CREATININE (test code = 6507756707) 0.58 mg/dL 0.5-1.04 CALCIUM (test code = 3721703594) 8.9 mg/dL 8.6-10.6 eGFR Calculation (Non-) (test code = 1999689778) mL/min/1.73m2 eGFR Calculation () (test code = 4359515210) mL/min/1.73m2 MELO (test code = MELO) Association [...] imaging tests). Lab Interpretation (test code = 82318-0) [facility]normal [facility], Xyhxq2010-25-11 10:54:00* Test Item Value Reference Range Interpretation Comme nts MAGNESIUM (test code = 5483820426) 2.2 mg/dL 1.7-2.4 Lab Interpretation (test cod e = 39015-9) Normal [facility] HospitalTHYROID STIMULATING [id number] 10:33:00 * Test Item Value Reference Range Interpretation Comme nts TSH (test code = 4312636870) See_Comment Biotin has been reported to cause a negative bias, interpret results relative to patient's use of biotin. [Automated message] The system which generated this result transmitted reference range: 0.45 - 4.70 mIU/L. The reference range was not used to interpret this result as normal/abnormal. Lab Interpretation (test code = 98973-0) Normal [facility] HospitalCB with Gufjpkogxgpm4813-21-14 10:21:00* Test Item Value Reference Range Interpretation [...] 34.3 g/dL 31.6-35.1 RDW-SD (test code = 78345-5) 40.5 fL 39-49.9 RDW-CV (test code = 788-0) 12.4 % 12-15.5 PLT (test code = 777-3) See_Comment L [Automated messa ge] The system which generated this result transmitted reference range: 166 - 358 10*3/?L. The reference range was not used to interpret this result as normal/abnormal. MPV (test code = 77208-8) 10.6 fL 9.5-12.9 NRBC/100 WBC (test code = 3150717272) See_Comment [Automated [employer] ssage] The system which generated this result transmitted reference range: 0.0 - 10.0 /100 WBCs. The reference range was not used to interpret this result as normal/abnormal. NRBC x10^3 (test code = 6331647530) <0.01 See_Comment [Automated messa ge] The system which generated this result transmitted reference range: 10*3/?L. The reference range was not used to interpret this result as normal/abnormal. GRAN MAT (NEUT) % (test code = 770-8) 53.6 % IMM GRAN % (test code = 4200264834) 0.30 % LYMPH % (test code = 736-9) 35.3 % MONO % (test code = 5905-5) 8.6 % EOS % (test code = 713-8) 1.6 % BASO % (test code = 706-2) 0.6 % GRAN MAT x10^3(ANC) (test code = 2651765470) 3.38 10*3/uL 1.88-7.09 IMM GRAN x10^3 (test code = 1281093198) <0.03 0-0.06 LYMPH x10^3 (test code = 731-0) 2.23 10*3/uL 1.32-3.29 MONO x10^3 (test code = 742-7) 0.54 10*3/uL 0.33-0.92 EOS x10^3 (test code = 711-2) 0.10 10*3/uL 0.03-0.39 BASO x10^3 (test code = 704-7) 0.04 10*3/uL 0.01-0.07 Lab Interpretation (test code = 36651-8) Abnormal [facility] HospitalGLYCOSYLATED HEMOGLOBIN (A1C)2020-05-06 10:10:00* Test Item Value Reference Range Interpretation Comme nts HGB A1C (test code = 4548-4) 5.9 % 4-6 MELO (test code = MELO) %A1C (NGSP) Interpretation (ADA)4.8-5.6 ? ? Normal or (Non-Diabetic Range)5.7-6.4 ? ? Increased Risk (Pre-Diabetic)>6.5 ?Diabetes Indicated Lab Interpretation (test code = 81214-1) Normal [facility] HospitalFASTING LIPID PANEL (85218)(TOTAL CHOLESTEROL, TRIGLYCERIDES, HDL)2020-05-06 09:59:00* Test Item Value Reference Range Interpretation Comme nts CHOL (test code = 6257714549) 250 mg/dL 120-200 H HDL (test code = 1608300433) 49 mg/dL >50 L HDLC RATIO (test code = 4933056361) See_Comment H [Automated [employer]] The system which generated this result transmitted reference range: <=4.5. The reference range was not used to interpret this result as normal/abnormal. TRIG (test code = 8792326163) 98 mg/dL 30-170 LDL CHOL (test code = 20859-0) 181 mg/dL See_Comment H [Automated [employer]] The system which generated this result transmitted reference range: <=160. The reference range was not used to interpret this result as normal/abnormal. VLDL (test code = 3330466067) 20 mg/dL 5-60 Lab Interpretation (test code = 05095-4) Abnormal [facility] HospitalXR STR[facility]KE CHEST 1 YR0178-08-90 04:35:13 Blunting of the left costophrenic sulcus [...] reviewed this study and agree with theabove report.[facility] HospitalCT [facility] WO CONTRAST 2020-05-06 04:15:14No acute [...] angiog stu. No high-grade stenosis of theoccipital region.[facility] HospitalCT STROKE ANGIOGRAM NIIH6611-07-92 04:15:14No acute intracranial Unremarkable CTs head and [...] are clear. The calvariumand central skull base areunremarkable. CT NECK ANGIOGRAM The left vertebral artery takes of directly from the arch. Mildather osclerotic calcifications of the arch without affecting the ostiaresults. The innominate and subclavian arteries are patent. Calcified plaque is noted at the left carotid bulb without causingsignificant stenosis. The bilateral common carotid arteries, right carotidbulb and internal carotid arteriesare patent without high-grade stenosis. The bilateral vertebral [...] The basal cisterns are unremarkable.There is no acut e intracranial hemorrhage or significant mass effect. Noparenchymal attenuation abnormality. The waddell-white matter differentiationis preserved.The mastoid air cells and paranasal air sinuses are clear. The calvariumand central skull base are unremarkable.CT NECK ANGIOGRAMThe left vertebral artery takes of directly from the arch. Mildatherosclerotic calcifications of the arch without affecting theostiaresults.The innominate and subclavian arteries are patent.Calcified plaque is noted at the left carotid bulb without causingsignificant stenosis. The bilateral common carotid arteries, right carotidbulb and internal carotid arteries are patent without high-grade stenosis.The bilateral vertebral arteries originate from the subclavian arteries andare visualized throughout their entire cervicallength. The ostia are freeof stenosis. No high-grade stenosis or dissection identified.Soft tissuesof the neck are unremarkable.The visualized lung apices are clear.Mild spondylotic changes of the cervical spine.CT HEAD ANGIOGRAMPICA origin is visualized bilaterally. The basilar artery is normal in caliber and patent. The superior cerebellar arteries are unremarkable.Posterior cerebral arteries are patent. Posterior communicating arteriesare visualized.The distal cervical, petrous, cavernous and supraclinoid ICAs are patent.The anterior and middle cerebral arteries are patent. Small anteriorcommunicating artery is visualized.IMPRESSIONNo acute intracranialUnremarkable CTs head and neck angiograms. No high-grade stenosis of theoccipital region.[facility] HospitalCT STR[facility]KE ANGIOGRAM [id number] 04:15:14No acute intracranial Unremarkable CTs head and [...] clear. The calvariumand central skull base are u nremarkable. CT NECK ANGIOGRAM The left vertebral artery [...] angiog stu. No high-grade stenosis of theoccipital region.[facility] HospitalTrst. jude [facility] hospitalni I - Code Xbytut5876-28-22 03:38:00* Test Item Value Reference Range Interpretation Comme nts TROPONIN I (test code = 5173950022) <0.012 See_Comment [Automated message] The system which [...] biotin. ? Lab Interpretation (test code = 80290-3) Normal [facility] HospitalCOVID-19 (ID NOW RAPID TESTING)2020-05-06 03:33:00* Test Item Value Reference Range Interpretation Comme nts SARS-CoV-2 Rapid ID NOW (test code = 86536-5) Not Detected Not Detected MELO (test code = MELO) ID NOW COVID-19 As say is an isothermal nucleic acid amplification test intended for the qualitative detection of nucleic acid from SARS-CoV-2 viral RNA in nasopharyngeal ([employer]) specimens. It is used under Emergency Use [...] clinically indicated. Lab Interpretation (test code = 22888-6) Normal [facility] Metabolic [facility] (NA, K, CL, CO2, Glucose, BUN, Creatinine, CA) - Code Kbhjpf5914-95-99 03:26:00* Test Item Value Reference Range Interpretation Comme nts NA (test code = 1237742672) 137 mmol/L 135-145 K (test code = 5624616665) 4.3 mmol/L 3.5-5 CL (test code = 1678535421) 101 mmol/L 98-108 CO2 TOTAL (test code = 5506452710) 27 mmol/L 23-31 AGAP (test code = 2016460048) 2-16 BUN (test code = 3619341009) 12 mg/dL 7-23 GLUCOSE (test code = 4165458978) 136 mg/dL 70-110 H CREATININE (test code = 4052413826) 0.61 mg/dL 0.5-1.04 CALCIUM (test code = 7340403561) 9.8 mg/dL 8.6-10.6 eGFR Calculation (Non-) (test code = 0682092426) mL/min/1.73m2 eGFR Calculation () (test code = 9966576789) mL/min/1.73m2 MELO (test code = MELO) Association [...] imaging tests). Lab Interpretation (test code = 82137-7) Abnormal [facility] HospitalaPTT - Code Qnjoqt4777-94-93 03:23:00* Test Item Value Reference Range Interpretation Comme [facility] APTT Patient (test code = 3173-2) See_Comment [Automated message] The system which generated this result transmitted reference range: 23 - 38 Seconds. The reference range was not used to interpret this result as normal/abnormal. MELO (test code = MELO) The [facility] patient population mean normal value for aPTT is 30 seconds. Lab Interpretation (test code = 72117-6) Normal [facility] HospitalProthrombin Time / INR - Code Hhgyik9259-21-57 03:21:00* Test Item Value Reference Range Interpretation Comme [facility] PROTIME PATIENT (test code = 5964-2) See_Comment [Automated messa ge] The system which generated this result transmitted reference range: 12.0 - 14.7 Seconds. The reference range was not used to interpret this result as normal/abnormal. INR (test code = 6301-6) Normal INR <1.1; Warfarin Therapeutic range 2.0 to 3.0 or 2.5 to 3.5, depending upon the indications. Lab Interpretation (test code = 43218-7) Normal [facility] without Diff - Code Mxvfuz2880-61-27 03:13:00* Test Item Value Reference Range Interpretation Comme nts WBC (test code = 6690-2) See_Comment [Automated [employer]] The system which generated this result transmitted reference range: 4.30 - 11.10 10*3/?L. The reference range was not used to interpret this result as normal/abnormal. RBC (test code = 789-8) See_Comment [Automated [employer]] The system which generated this result [...] PLT (test code = 777-3) See_Comment [Automated [employer]] The system which generated this result transmitted reference range: 166 - 358 10*3/?L. The reference range was not used to interpret this result as normal/abnormal. MPV (test code = 47511-3) 10.4 fL 9.5-12.9 RDW-CV (test code = 788-0) 12.2 % 12-15.5 RDW-SD (test code = 32289-4) 39.3 fL 39-49.9 NRBC x10^3 (test code = 4208856896) <0.01 See_Comment [Automated [employer] ssage] The system which generated this result transmitted reference range: 10*3/?L. The reference range was not used to interpret this result as normal/abnormal. NRBC/100 WBC (test code = 5575259454) See_Comment [Automated me ssage] The system which generated this result transmitted reference range: 0.0 - 10.0 /100 WBCs. The reference range was not used to interpret this result as normal/abnormal. IPF % (test code = 5912135143) [facility] Notes Date/Time Note Provider Source 2023-01-25 15:03:49 IPXSGJePuqLf9sZqw+VU tYXMhhBKxD8B2doe vtE695xOB6IrkEgBAx3mgYh9zpDf3842-68- 24T15:03:49 MRI order placed. Ying Sarmiento MA 01/25/2023 3:03 PM 45206-7Uzolgzoap encounter TlqpUI9227-30-06N75:04:04Telephone encounter NoteTXT1.2.840.302372.1.13.104.2.7.2 .183953|[id number] for patient kdcw99690-5IncdNPZQWTXPLW[id number] EBFMLTAVPRQKYSDBBVURYZ5576-09-72M84: 04:041.2.840.044255.1.72.3.15|1.2.84 0.019781.1.13.104.2.7.2.727879_18826 [address] [facility] 2023-01-25 13:18:27 9N4GsDHPtSlzd/mAt5VK 2d9E9SNASUPPeDXz 45xMB+p2ItpHCiKy+pT5wPVqF9LZ3449-15- 24T13:18:27 Pt daughter calling wanting to know if Dr Cadet was still going to put orders in for an MRI. She said he was supposed to put one in on 01/18 after her appointment. 25578-8Siomebfmk encounter ZubfLS9773-71-31M42:21:39Telephone encounter NoteTXT1.2.840.602853.1.13.104.2.7.2 .688807|[id number] for patient [id number] [address] Go[id number] HNWPMURQIZNVXIWEXSEHXI8539-31-94O16: 21:391.2.840.960530.1.72.3.15|1.2.84 0.472400.1.13.104.2.7.2.727879_18825 [address] [facility]"
--- NOTE | 2023-09-01 02:56 | ER ---
Nurse's Notes [facility] Name: Diana Harrell Age: 83 yrs Sex: Female : 1940 Arrival Date: 09/01/2023 Time: 01:41 Bed 11 Private MD: Rocio Fontanez Diagnosis: Chronic bilateral leg pain Presentation: 08/31 02:30 Chief complaint: Patient states: bilateral leg pain of 10,onset 4 months. Daughter pf1 stated patient does not know what medications that she takes for her chronic leg pain. Coronavirus screen: Vaccine status: Patient reports receiving the 2nd dose of the covid vaccine. Client denies travel out of the [place] in the last 14 days. At this time, the client does not indicate any symptoms associated with coronavirus-19. Ebola Screen: Patient negative for fever greater than or equal to 101.5 degrees Fahrenheit, and additional compatible Ebola Virus Disease symptoms. Initial Sepsis Screen: Does the patient meet any 2 criteria? No. Patient's initial sepsis screen is negative. Does the patient have a suspected source of infection? No. Patient's initial sepsis screen is negative. Risk Assessment: Do you want to hurt yourself or someone else? Patient reports no desire to harm self or others. Onset of symptoms was September 01, 2023. 02:30 Method Of Arrival: Wheelchair pf1 02:30 Acuity: VAN 4 pf1 Triage Assessment: 02:40 General: Appears in no apparent distress. comfortable, well groomed, well developed, pf1 Behavior is calm, cooperative, appropriate for age, quiet. Musculoskeletal: Reports pain in right leg and left leg since chronic, worse tonight. Pain is 10 out of 10 on a pain scale. Historical: - Allergies: 02:39 No Known Allergies; pf1 - PMHx: 02:39 Arthritis; Hypertension; pf1 02:39 Chronic pain; pf1 - PSHx: 02:39 None; pf1 - Immunization history:: Adult Immunizations up to date, Client reports receiving the 2nd dose of the Covid vaccine, Last tetanus immunization: > 10 years ago Flu vaccine is up to date. - Social history:: Smoking status: Patient denies any tobacco usage or history of. Patient/guardian denies using alcohol, street drugs. - Family history:: not pertinent. Screenin:45 [facility] ED Fall Risk Assessment (Adult) History of falling in the last 3 months, cm10 including since admission No falls in past 3 months (0 pts) Confusion or Disorientation No (0 pts) Intoxicated or Sedated No (0 pts) Impaired Gait No (0 pts) Mobility Assist Device Used No (0 pt) Altered Elimination No (0 pt) Score/Fall Risk Level 0 - 2 = Low Risk Oriented to surroundings, Maintained a safe environment, Hourly rounding (assess needs \T\ fall precautionary measures) done. Abuse screen: Denies threats or abuse. Denies injuries from another. Nutritional screening: No deficits noted. Tuberculosis screening: No symptoms or risk factors identified. Vital Signs: 02:30 BP 160 / 82; Pulse 88; Resp 16; Temp 97.4; Pulse Ox 100% on R/A; Weight 48.99 kg; pf1 Height 4 ft. 11 in. ; Pain 10/10; 02:30 Body Mass Index 21.81 (48.99 kg, 149.86 cm) pf1 02:30 Pain Scale: Adult pf1 ED Course: 01:47 Patient arrived in ED. gm2 01:47 Rocio Fontanez DO is Private Physician. gm2 01:55 Jak Mckeon MD is Attending Physician. rt 02:39 Triage completed. pf1 02:40 Arm band placed on right wrist. pf1 02:45 Patient has correct armband on for positive identification. Bed in low position. Call cm10 light in reach. Provided Education on: ER process and procedures.. 02:45 No provider procedures requiring assistance completed. Patient did not have IV access cm10 during this emergency room visit. 02:55 Rocio Fontanez DO is Referral Physician. rt Administered Medications: 03:00 Drug: Hydrocodone-Acetaminophen PO (7.5 mg-325 mg) 1 tabs PO once Route: PO; pf1 03:11 Follow up: Response: No adverse reaction; Marked relief of symptoms; Pain is unchanged, pf1 physician notified Medication: 02:45 VIS not applicable for this client. cm10 Outcome: 02:55 Discharge ordered by . rt 03:11 Discharged to home via wheelchair, with family, pf1 03:11 Condition: stable 03:11 Discharge instructions given to patient, family, Instructed on discharge instructions, follow up and referral plans. Demonstrated understanding of instructions, follow-up care, medications, Prescriptions given X 1, 03:12 Patient left the ED. pf1 Signatures: Jak Mckeon MD MD rt Finley, Pamala RN RN pf1 Adore Hanley RN RN cm10 Giselle Lewis gm2
--- NOTE | 2023-09-01 02:56 | EDPHYS ---
Physician Documentation [facility] Name: Diana Harrell Age: 83 yrs Sex: Female : 1940 Arrival Date: 09/01/2023 Time: 01:41 Bed 11 Private MD: Rocio Fontanez ED Physician Jak Mckeon HPI: 08/31 04:16 This 83 yrs old Female presents to ER via Wheelchair with complaints of Leg rt Pain. 04:16 Patient presents to the ED with bilateral lower extremity pain, atraumatic there is rt been present for several months. Patient is currently out of her pain medications but the family does not know what these are. Denies other acute complaints at this time, symptoms are moderate in severity, aching nature, nonradiating, no other aggravating or alleviating factors.. Historical: - Allergies: 02:39 No Known Allergies; pf1 - PMHx: 02:39 Arthritis; Hypertension; pf1 02:39 Chronic pain; pf1 - PSHx: 02:39 None; pf1 - Immunization history:: Adult Immunizations up to date, Client reports receiving the 2nd dose of the Covid vaccine, Last tetanus immunization: > 10 years ago Flu vaccine is up to date. - Social history:: Smoking status: Patient denies any tobacco usage or history of. Patient/guardian denies using alcohol, street drugs. - Family history:: not pertinent. ROS: 04:16 Constitutional: Negative for fever, chills, and weight loss, Cardiovascular: Negative rt for chest pain, palpitations, and edema, Respiratory: Negative for shortness of breath, cough, wheezing, and pleuritic chest pain, Abdomen/GI: Negative for abdominal pain, nausea, vomiting, diarrhea, and constipation, Skin: Negative for injury, rash, and discoloration, Neuro: Negative for headache, weakness, numbness, tingling, and seizure, 04:16 MS/extremity: Positive for pain, Negative for injury or acute deformity, Exam: 04:16 Constitutional: This is a well developed, well nourished patient who is awake, alert, rt and in no acute distress. Head/Face: Normocephalic, atraumatic. Chest/axilla: Normal chest wall appearance and motion. Nontender with no deformity. No lesions are appreciated. Cardiovascular: Regular rate and rhythm with a normal S1 and S2. No gallops, murmurs, or rubs. Normal PMI, no JVD. No pulse deficits. Respiratory: Lungs have equal breath sounds bilaterally, clear to auscultation and percussion. No rales, rhonchi or wheezes noted. No increased work of breathing, no retractions or nasal flaring. Abdomen/GI: Soft, non-tender, with normal bowel sounds. No distension or tympany. No guarding or rebound. No evidence of tenderness throughout. 04:16 Musculoskeletal/extremity: Mild tenderness diffusely on bilateral lower extremities. Skin is unremarkable. There is 2+ dorsalis pedis pulses bilaterally. No deformities, bruising noted. Vital Signs: 02:30 BP 160 / 82; Pulse 88; Resp 16; Temp 97.4; Pulse Ox 100% on R/A; Weight 48.99 kg; pf1 Height 4 ft. 11 in. ; Pain 10/10; 02:30 Body Mass Index 21.81 (48.99 kg, 149.86 cm) pf1 02:30 Pain Scale: Adult pf1 MDM: 02:46 Patient medically screened. rt 04:16 Differential diagnosis: Chronic pain, neuropathy. Data reviewed: vital signs, nurses rt notes. Test considered but Not performed: Other Details Chronic, atraumatic pain, CT, x-ray not indicated. Care significantly affected by the following chronic conditions: Hypertension. Counseling: I had a detailed discussion with the patient and/or guardian regarding the historical points, exam findings, and any diagnostic results supporting the discharge/admit diagnosis, the need for outpatient follow up, to return to the emergency department if symptoms worsen or persist or if there are any questions or concerns that arise at home. Administered Medications: 03:00 Drug: Hydrocodone-Acetaminophen PO (7.5 mg-325 mg) 1 tabs PO once Route: PO; pf1 03:11 Follow up: Response: No adverse reaction; Marked relief of symptoms; Pain is unchanged, pf1 physician notified Disposition Summary: 09/01/23 02:55 Discharge Ordered Notes: Location: Home rt Problem: an ongoing problem rt Symptoms: are unchanged rt Condition: Stable rt Diagnosis - Chronic bilateral leg pain rt Followup: rt - With: Rocio Fontanez DO - When: 2 - 3 days - Reason: Discharge Instructions: - Discharge Summary Sheet rt - Neuropathic Pain rt Forms: - Medication Reconciliation Form rt - Thank You Letter rt - Antibiotic Education rt - Prescription Opioid Use rt - Patient Portal Instructions rt - Leadership Thank You Letter rt Prescriptions: - gabapentin 100 mg Oral capsule - take 1 capsule ORAL route every 8 hours; 30 capsule; Refills: 0, Product rt Selection Permitted Signatures: Jak Mckeon MD MD rt Yumiko Shi RN RN pf1
[2023-09-01] MEDS ORDERED: HYDROCODONE/APAP 7.5/325 MG TAB ONE (03:02)
[2023-09-01 03:20] VITALS: BP 160/82; TEMP 97.4; O2SAT 100
== END 2023-09-01 03:12 | disposition home or self-care (01) ==
LOC: ER 01:41
DX: M79.605 Pain in left leg (principal); M79.604 Pain in right leg; G89.29 Other chronic pain
CPT/HCPCS: 99283

== ENCOUNTER 2024-02-09 18:45 | Emergency (ER) | payer OTHER ==
[2024-02-09] MEDS ORDERED: GABAPENTIN 300 MG CAP ONE (19:59)
[2024-02-09] MEDS ORDERED: TRAMADOL HCL 50 MG TAB ONE (19:59)
--- NOTE | 2024-02-09 20:58 | RAD REPORT ---
EXAM DESCRIPTION: US - Extremity Venous Uni Ltd - 02/09/2024 8:00 pm CLINICAL HISTORY: Pain COMPARISON: None. TECHNIQUE: Real-time sonographic evaluation of the right lower extremity deep venous system was perf ormed. FINDINGS: Normal compressibility, flow augmentation, phasic flow and spontaneous flow is identified in the right lower extremity deep venous system. No intraluminal filling defects seen. IMPRESSION: No DVT in the right lower extremity.
--- NOTE | 2024-02-09 21:03 | EDPHYS ---
Physician Documentation [facility] Name: Diana Harrell Age: 83 yrs Sex: Female : 1940 Arrival Date: 02/09/2024 Time: 18:45 Bed 15 Private MD: ED Physician Jared Zamarripa HPI: 02/08 19:36 This 83 yrs old Female presents to ER via Wheelchair with complaints of Leg rn Pain. 19:36 The patient presents with pain, that is chronic. The complaints affect the right calf, rn right Achilles, right knowles, anterior aspect of right ankle and dorsum of right foot. Onset: The symptoms/episode began/occurred at an unknown time. Severity of symptoms: At their worst the symptoms were moderate, in the emergency department the symptoms are unchanged. The patient has experienced similar episodes in the past. The patient has not recently seen a physician. Family brings patient in for RLE pain, has chronic pain in that leg, no new symptoms, has dementia and anxiety so they are not sure if is her chronic neuropathy or something new. No fall or trauma. No swelling. No discoloration. . Historical: - Allergies: 19:26 No Known Allergies; db - Home Meds: 19:26 2 unknown blood pressure medications [Active]; db - PMHx: 19:26 Arthritis; Chronic pain; Hypertension; db - Immunization history:: Adult Immunizations unknown. - Infectious Disease History:: Denies. - Social history:: Smoking status: Patient denies any tobacco usage or history of. - Family history:: not pertinent. - Hospitalizations: : No recent hospitalization is reported. ROS: 19:36 Constitutional: Negative for fever, chills, and weight loss, Cardiovascular: Negative rn for chest pain, palpitations, and edema, Respiratory: Negative for shortness of breath, cough, wheezing, and pleuritic chest pain, Abdomen/GI: Negative for abdominal pain, nausea, vomiting, diarrhea, and constipation, MS/Extremity: + RLE pain Skin: Negative for injury, rash, and discoloration, Neuro: Negative for headache, weakness, numbness, tingling, and seizure, Exam: 19:36 Constitutional: This is a well developed, well nourished patient who is awake, alert, rn and in no acute distress. Cardiovascular: Regular rate and rhythm. No pulse deficits. Respiratory: No increased work of breathing, no retractions or nasal flaring. MS/ Extremity: Pulses equal, no cyanosis. Neurovascular intact. Full, normal range of motion. Equal circumference. No bony tenderness. Vital Signs: 19:23 BP 178 / 80; Pulse 74; Resp 18; Temp 98.8; Pulse Ox 97% ; Weight 44.45 kg; Height 4 ft. db 10 in. ; 21:18 BP 164 / 81; Pulse 77; Resp 16 S; Pulse Ox 98% on R/A; me1 19:23 Body Mass Index 20.48 (44.45 kg, 147.32 cm) db MDM: 18:58 Patient medically screened. rn 21:01 Differential diagnosis: DVT, neuropathy, chronic pain. Data reviewed: vital signs, rn nurses notes, radiologic studies, ultrasound, and as a result, I will discharge patient. Counseling: I had a detailed discussion with the patient and/or guardian regarding the historical points, exam findings, and any diagnostic results supporting the discharge/admit diagnosis, radiology results, the need for outpatient follow up, to return to the emergency department if symptoms worsen or persist or if there are any questions or concerns that arise at home. Special discussion: I discussed with the patient/guardian in detail that at this point there is no indication for admission to the hospital. It is understood, however, that if the symptoms persist or worsen the patient needs to return immediately for re-evaluation. 02/08 19:32 Order name: Extremity Venous Uni Ltd ; Complete Time: 21:01 rn Administered Medications: 20:10 Drug: traMADol PO 25 mg PO once Route: PO; lg3 20:10 Drug: Gabapentin PO 300 mg PO once Route: PO; lg3 Disposition Summary: 02/09/24 21:02 Discharge Ordered Notes: Location: Home rn Problem: new rn Symptoms: have improved rn Condition: Stable rn Diagnosis - Pain in right lower leg rn Followup: rn - With: Private Physician - When: As needed - Reason: Recheck today's complaints, Re-evaluation by your physician Discharge Instructions: - Discharge Summary Sheet rn - Neuropathic Pain rn - Peripheral Neuropathy rn Forms: - Medication Reconciliation Form rn - Antibiotic physician general internal medicine - Prescription Opioid Use rn - Patient Portal Instructions rn - Leadership Thank You Letter rn Signatures: Dispatcher [employer] Jared Tinoco MD MD rn Able, Lacie, RN RN lg3 Kim Amor, RN RN db
--- NOTE | 2024-02-09 21:03 | ER ---
Nurse's Notes [facility] Name: Diana Harrell Age: 83 yrs Sex: Female : 1940 Arrival Date: 02/09/2024 Time: 18:45 Bed 15 Private MD: Diagnosis: Pain in right lower leg Presentation: 02/08 19:23 Chief complaint: Patient's son or daughter states: RIGHT LEG PAIN STARTED TODAY. db Coronavirus screen: Client denies travel out of the [place] in the last 14 days. At this time, the client does not indicate any symptoms associated with coronavirus-19. Ebola Screen: Patient negative for fever greater than or equal to 101.5 degrees Fahrenheit, and additional compatible Ebola Virus Disease symptoms Patient denies exposure to infectious person. Patient denies travel to an Ebola-affected area in the 21 days before illness onset. No symptoms or risks identified at this time. Initial Sepsis Screen: Does the patient meet any 2 criteria? No. Patient's initial sepsis screen is negative. Does the patient have a suspected source of infection? No. Patient's initial sepsis screen is negative. Risk Assessment: Do you want to hurt yourself or someone else? Patient reports no desire to harm self or others. Onset of symptoms was February 09, 2024. 19:23 Method Of Arrival: Wheelchair db 19:23 Acuity: VAN 3 db 19:23 Chief complaint: Patient's son or daughter states: RIGHT LEG PAIN STARTED TODAY WAS NOT db ABLE TO WALK ON LEG. DENIES RECENT INJURY. FEELING ANXIOUS BECAUSE IS SICK. HX OF DEMENTIA. Triage Assessment: 19:26 General: Appears in no apparent distress. comfortable, Behavior is calm, cooperative. db Pain: Complains of pain in right leg. Pain: Complains of pain in right foot. Neuro: Level of Consciousness is awake, alert, obeys commands, Oriented to person, place, time, situation. Historical: - Allergies: 19:26 No Known Allergies; db - Home Meds: 19:26 2 unknown blood pressure medications [Active]; db - PMHx: 19:26 Arthritis; Chronic pain; Hypertension; db - Immunization history:: Adult Immunizations unknown. - Infectious Disease History:: Denies. - Social history:: Smoking status: Patient denies any tobacco usage or history of. - Family history:: not pertinent. - Hospitalizations: : No recent hospitalization is reported. Screenin:18 [facility] ED Fall Risk Assessment (Adult) History of falling in the last 3 months, me1 including since admission No falls in past 3 months (0 pts) Confusion or Disorientation No (0 pts) Intoxicated or Sedated No (0 pts) Impaired Gait Yes (1 pt) Mobility Assist Device Used Yes (1 pt) Altered Elimination No (0 pt) Score/Fall Risk Level 0 - 2 = Low Risk Oriented to surroundings, Maintained a safe environment, Educated pt \T\ family on fall prevention, incl call for assistance when getting out of bed, Assessed \T\ reinforced patient's understanding of fall precautions, Provided non-skid footwear. Abuse screen: Denies threats or abuse. Denies injuries from another. Nutritional screening: No deficits noted. Tuberculosis screening: No symptoms or risk factors identified. Assessment: 21:18 General: Appears in no apparent distress. comfortable, Behavior is calm, cooperative. me1 Pain: Complains of pain in right leg. Neuro: No deficits noted. Gomez Agitation-Sedation Scale (RASS): 0 - Alert and Calm Level of Consciousness is awake, alert, obeys commands, Oriented to person, place, time, situation. Cardiovascular: No deficits noted. Denies chest pain. Respiratory: No deficits noted. Airway is patent Respiratory effort is even, unlabored, Respiratory pattern is regular, symmetrical. GI: No deficits noted. No signs and/or symptoms were reported involving the gastrointestinal system. : No deficits noted. No signs and/or symptoms were reported regarding the genitourinary system. EENT: No deficits noted. No signs and/or symptoms were reported regarding the EENT system. Derm: No deficits noted. No signs and/or symptoms reported regarding the dermatologic system. Skin is intact, is thin, Skin is dry, Skin is normal, Skin temperature is warm. Musculoskeletal: Circulation, motion, and sensation intact. Range of motion: intact in all extremities, Reports pain in right leg. Vital Signs: 19:23 BP 178 / 80; Pulse 74; Resp 18; Temp 98.8; Pulse Ox 97% ; Weight 44.45 kg; Height 4 ft. db 10 in. ; 21:18 BP 164 / 81; Pulse 77; Resp 16 S; Pulse Ox 98% on R/A; me1 19:23 Body Mass Index 20.48 (44.45 kg, 147.32 cm) db ED Course: 18:49 Patient arrived in ED. mr 18:58 Jared Zamarripa MD is Attending Physician. rn 19:25 Triage completed. db 19:26 Arm band placed on Patient placed in waiting room. db 20:00 Extremity Venous Uni Ltd US In Process Unspecified. EDMS 21:18 Kari Galvan, RN is Primary Nurse. me1 21:18 Patient has correct armband on for positive identification. Placed in gown. Bed in low me1 position. Call light in reach. Side rails up X 1. Client placed on continuous cardiac and pulse oximetry monitoring. NIBP monitoring applied. Door closed. Noise minimized. Warm blanket given. Pillow given. Family accompanied patient. 21:18 No provider procedures requiring assistance completed. Patient did not have IV access me1 during this emergency room visit. Administered Medications: 20:10 Drug: traMADol PO 25 mg PO once Route: PO; lg3 20:10 Drug: Gabapentin PO 300 mg PO once Route: PO; lg3 Medication: 21:18 VIS not applicable for this client. me1 Outcome: 21:02 Discharge ordered by . rn 21:18 Discharged to home via wheelchair, with family, me1 21:18 Condition: stable 21:18 Discharge instructions given to patient, Instructed on discharge instructions, follow up and referral plans. Demonstrated understanding of instructions, follow-up care, 21:21 Patient left the ED. me1 Signatures: Dispatcher [employer] EDND Evette Frank, Reg Reg mr Jared Zamarripa MD MD rn Able, Lacie, RN RN lg3 Kim Amor RN RN db Eddleman, Michelle, SERG RN me1 Corrections: (The following items were deleted from the chart) 19:26 19:23 Acuity: VAN 2 db db 19:27 19:23 Chief complaint: Patient's son or daughter states: RIGHT LEG PAIN STARTED TODAY db WAS NOT ABLE TO WALK ON LEG. FEELING ANXIOUS BECAUSE IS SICK. HX OF DEMENTIA db
[2024-02-09 21:41] VITALS: TEMP 98.8
[2024-02-09 21:42] VITALS: BP 164/81; O2SAT 98
== END 2024-02-09 21:21 | disposition home or self-care (01) ==
LOC: ER 18:45
DX: M79.661 Pain in right lower leg (principal)
CPT/HCPCS: 93971; 99283